=== PATIENT | female | born 1950 | race Caucasian/White ===

== ENCOUNTER 2022-08-06 13:47 | Inpatient (IN) | payer MEDICARE ==
[~2022-08-06] VITALS: Ht 157.5 cm; Wt 39.8 kg
[2022-08-06] MEDS: predniSONE 20 MG TAB PO SCH (09:00)
[2022-08-06] MEDS: COMBIVENT RESPIMAT 100-20MCG INHALER 4GM INH SCH ×3 (13:45→14:28)
[2022-08-06] MEDS ORDERED: methylPREDNISolone 125MG 2ML VIAL IV ONE (14:00)
[2022-08-06] MEDS ORDERED: LevoFLOXacin 750 MG TABLET PO ONE (14:15)
[2022-08-06 15:29] LABS: HEMATOCRIT 30.5 % (36.0-47.0); MEAN CORPUSCULAR HEMOGLOBIN 28.8 pg (27.0-33.0); MEAN CORPUSCULAR HGB CONC 32.8 g/dl (32.0-36.5); MEAN CORPUSCULAR VOLUME 87.9 fl (80.0-96.0); PLATELET COUNT, AUTOMATED 383 10^3/uL (150-450); RED BLOOD COUNT 3.47 10^6/uL (4.00-5.40); WHITE BLOOD COUNT 22.3 10^3/uL (4.0-10.0)
[2022-08-06 16:00] LABS: ALBUMIN 2.1 G/DL (3.2-5.2); ALKALINE PHOSPHATASE 94 U/L (46-116); ALT/SGPT 10 U/L (7.0-40); AST/SGOT 31 U/L (<34); BILIRUBIN,DIRECT 0.2 MG/DL (<0.4); BILIRUBIN,TOTAL 0.4 MG/DL (0.3-1.2); BLOOD UREA NITROGEN 12 MG/DL (9-23); CALCIUM LEVEL 7.2 MG/DL (8.3-10.6); CARBON DIOXIDE LEVEL 17 MMOL/L (20-31); CHLORIDE LEVEL 94 MMOL/L (98-107); CK-MB VALUE MASS < 1.0 NG/ML (<3.6); CREATININE FOR GFR 0.55 MG/DL (0.55-1.30); GLOMERULAR FILTRATION RATE > 60.0 (>39); GLUCOSE, FASTING 76 MG/DL (74-106); POTASSIUM SERUM 3.7 MMOL/L (3.5-5.1); SODIUM LEVEL 128 MMOL/L (136-145); TOTAL PROTEIN 5.8 G/DL (5.7-8.2)
[2022-08-06 16:01] LABS: LYMPHOCYTES 3 % (16-44); METAMYELOCYTES 2 % (0-0); MONOCYTES 3 % (0-5); MYELOCYTES 1 % (0-0); NEUTROPHILS 86 % (28-66); PLATELET ESTIMATE NORMAL (NORMAL); THYROXINE (T4) 7.5 UG/DL (4.5-10.9); TOXIC VACUOLATION 1+
[2022-08-06 16:02] LABS: THYROID STIMULATING HORMONE 0.997 uIU/ML (0.55-4.78)
[2022-08-06 16:05] LABS: CPK CREATINE PHOSPHOKINASE 34 U/L (34-145); MB/CK RELATIVE INDEX 2.94 (< OR =4)
[2022-08-06] MEDS ORDERED: **hydrALAZINE HCL** 25 MG TAB PO PRN (17:15)
[2022-08-06] MEDS: NS 1,000 ML IV SCH (17:20)
[2022-08-06 17:40] LABS: CK-MB VALUE MASS < 1.0 NG/ML (<3.6)
[2022-08-06 17:51] LABS: CPK CREATINE PHOSPHOKINASE 28 U/L (34-145); MB/CK RELATIVE INDEX 3.57 (< OR =4)
[2022-08-06] MEDS ORDERED: DULE100A INH (18:39)
[2022-08-06] MEDS ORDERED: SPIR1AER INH (18:39)
[2022-08-06] MEDS ORDERED: SPIR12.9 INH (18:39)
[2022-08-06] MEDS ORDERED: SOTA80TA53 PO (18:51)
[2022-08-06] MEDS ORDERED: ALB2.5NEB INH (18:51)
[2022-08-06] MEDS ORDERED: ASPI81TA26 PO (18:51)
[2022-08-06] MEDS ORDERED: OMEP-173 PO (18:51)
[2022-08-06] MEDS ORDERED: ALBU8.5H INH (18:51)
[2022-08-06] MEDS ORDERED: CLON0.2T PO (18:51)
[2022-08-06] MEDS ORDERED: GABA600T4 PO (18:51)
[2022-08-06] MEDS ORDERED: SOTA120T PO (18:51)
[2022-08-06] MEDS ORDERED: CLOP75TA2 PO (19:33)
[2022-08-06] MEDS ORDERED: TOPI50TA9 PO (19:33)
[2022-08-06] MEDS ORDERED: DRIS50003 PO (19:33)
[2022-08-06] MEDS ORDERED: ATOR40TA75 PO (19:33)
[2022-08-06] MEDS ORDERED: HOME MED LIST COMPLETE! XX SCH (19:40)
[2022-08-06] MEDS: SODIUM CHLORIDE HYPERTONIC 3% 15ML NEB SOL INH SCH (20:00)
[2022-08-06] MEDS: IPRATROPIUM 0.5MG/ALBUTEROL 2.5MG INH SOL UD 3ML (DUONEB) NEB SCH (20:20)
[2022-08-06 20:22] LABS: IRON (FE) 6 UG/DL (50-170); PERCENT SATURATION 2.7 % (13.2-45.0); TOTAL IRON BINDING CAPACITY 223 UG/DL (250-425)
[2022-08-06 20:24] LABS: FERRITIN 100.2 NG/ML (7.3-270.7); TOTAL 25(OH) VITAMIN D 136.9 NG/ML (20.0-100.0)
[2022-08-06 20:25] LABS: FOLATE > 24.0 NG/ML (>5.4); VITAMIN B12 LEVEL 433 PG/ML (211-911)
[2022-08-06] MEDS ORDERED: DOXYCYCLINE HYCLATE 100 MG in D5W MINI-BAG PLUS 100 ML IV SCH (21:00)
[2022-08-06] MEDS: AMPICILLIN SOD/SULBACTAM SOD 3 GM in D5W MINI-BAG PLUS 100 ML IV SCH (21:28)
[2022-08-07] MEDS: GABAPENTIN 300 MG CAP PO PRN ×2 (00:46→19:34)
[2022-08-07] MEDS: DOXYCYCLINE HYCLATE 100MG TABLET PO SCH ×3 (00:46→19:33)
[2022-08-07] MEDS: SODIUM CHLORIDE HYPERTONIC 3% 15ML NEB SOL INH SCH ×4 (01:41→20:00)
[2022-08-07] MEDS: IPRATROPIUM 0.5MG/ALBUTEROL 2.5MG INH SOL UD 3ML (DUONEB) NEB SCH ×4 (01:41→20:36)
[2022-08-07] MEDS: AMPICILLIN SOD/SULBACTAM SOD 3 GM in D5W MINI-BAG PLUS 100 ML IV SCH ×4 (02:12→19:38)
[2022-08-07] MEDS: NS 1,000 ML IV SCH ×2 (06:21→09:02)
[2022-08-07 06:54] LABS: HEMATOCRIT 29.1 % (36.0-47.0); HEMOGLOBIN 9.8 g/dl (12.0-15.5); MEAN CORPUSCULAR HEMOGLOBIN 29.8 pg (27.0-33.0); MEAN CORPUSCULAR HGB CONC 33.7 g/dl (32.0-36.5); MEAN CORPUSCULAR VOLUME 88.4 fl (80.0-96.0); PLATELET COUNT, AUTOMATED 366 10^3/uL (150-450); RED BLOOD COUNT 3.29 10^6/uL (4.00-5.40); WHITE BLOOD COUNT 15.7 10^3/uL (4.0-10.0)
[2022-08-07 07:21] LABS: BLOOD UREA NITROGEN 16 MG/DL (9-23); CALCIUM LEVEL 6.7 MG/DL (8.3-10.6); CARBON DIOXIDE LEVEL 21 MMOL/L (20-31); CHLORIDE LEVEL 97 MMOL/L (98-107); GLOMERULAR FILTRATION RATE > 60.0 (>39); GLUCOSE, FASTING 107 MG/DL (74-106); POTASSIUM SERUM 3.5 MMOL/L (3.5-5.1); SODIUM LEVEL 131 MMOL/L (136-145)
[2022-08-07 08:21] LABS: CHOLESTEROL LEVEL 72 MG/DL (<200); CHOLESTEROL RISK RATIO 3.97 (<5); HDL CHOLESTEROL 18.1 MG/DL (>40); LDL CHOLESTEROL 37.7 MG/DL (<100); NON-HDL-C 54 MG/DL; TRIGLYCERIDES LEVEL 81 MG/DL (<150)
[2022-08-07] MEDS: OMEPRAZOLE 20MG CAP PO SCH (09:01)
[2022-08-07] MEDS: ASPIRIN 81MG ENTERIC TABLET PO SCH (09:01)
[2022-08-07] MEDS: predniSONE 20 MG TAB PO SCH (09:02)
[2022-08-07] MEDS: ENOXAPARIN 30MG/0.3ML SYRINGE (J1650 PER 10MG) SC SCH (09:02)
[2022-08-07 09:17] LABS: HEMOGLOBIN A1c 5.2 % (4.0-6.0)
[2022-08-07] MEDS ORDERED: E-Z-PAQUE 96% w/w SUSP 176GM BTL As Ordered ONE (13:15)
[2022-08-07] MEDS ORDERED: BARIUM SULFATE 700 MG TABLET (E-Z-DISK) As Ordered ONE (13:15)
[2022-08-07] MEDS ORDERED: VARIBAR NECTAR 40% w/v 240ML SUSP BTL As Ordered ONE (13:15)
[2022-08-07] MEDS ORDERED: VARIBAR PUDDING 40% w/v 230ML TUBE As Ordered ONE (13:15)
[2022-08-07] MEDS: ATORVASTATIN 20 MG TAB PO SCH (19:34)
[2022-08-07] MEDS: TOPIRAMATE (TopAMAX) 25 MG TAB PO SCH (19:34)
[2022-08-07] MEDS: CLOPIDOGREL 75 MG TAB PO SCH (19:34)
[2022-08-07] MEDS ORDERED: ATORVASTATIN 20 MG TAB PO SCH (21:00)
[2022-08-08 00:47] VITALS: BP 152/67
[2022-08-08] MEDS: AMPICILLIN SOD/SULBACTAM SOD 3 GM in D5W MINI-BAG PLUS 100 ML IV SCH ×4 (01:43→19:55)
[2022-08-08] MEDS: RAMELTEON 8 MG TAB (ROZEREM) PO PRN ×2 (01:49→19:56)
[2022-08-08] MEDS: SODIUM CHLORIDE HYPERTONIC 3% 15ML NEB SOL INH SCH ×4 (02:00→19:32)
[2022-08-08 02:27] LABS: OSMOLALITY URINE 601 MOSM/KG (50-1400)
[2022-08-08 02:29] LABS: SODIUM,RANDOM URINE 18 MMOL/L
[2022-08-08] MEDS: IPRATROPIUM 0.5MG/ALBUTEROL 2.5MG INH SOL UD 3ML (DUONEB) NEB SCH ×4 (02:46→19:32)
[2022-08-08] MEDS: NS 1,000 ML IV SCH (04:57)
[2022-08-08 05:06] VITALS: BP 127/48
[2022-08-08 05:47] LABS: HEMATOCRIT 26.4 % (36.0-47.0); HEMOGLOBIN 8.9 g/dl (12.0-15.5); MEAN CORPUSCULAR HEMOGLOBIN 29.7 pg (27.0-33.0); MEAN CORPUSCULAR HGB CONC 33.7 g/dl (32.0-36.5); PLATELET COUNT, AUTOMATED 352 10^3/uL (150-450); WHITE BLOOD COUNT 13.9 10^3/uL (4.0-10.0)
[2022-08-08 06:21] LABS: BLOOD UREA NITROGEN 16 MG/DL (9-23); CALCIUM LEVEL 6.9 MG/DL (8.3-10.6); CARBON DIOXIDE LEVEL 22 MMOL/L (20-31); CHLORIDE LEVEL 99 MMOL/L (98-107); CREATININE FOR GFR 0.54 MG/DL (0.55-1.30); GLOMERULAR FILTRATION RATE > 60.0 (>39); GLUCOSE, FASTING 114 MG/DL (74-106); POTASSIUM SERUM 3.3 MMOL/L (3.5-5.1); SODIUM LEVEL 132 MMOL/L (136-145)
[2022-08-08 06:24] LABS: LYMPHOCYTES 12 % (16-44); METAMYELOCYTES 1 % (0-0); MONOCYTES 10 % (0-5); NEUTROPHILS 73 % (28-66); PLATELET ESTIMATE NORMAL (NORMAL)
[2022-08-08] MEDS: ASPIRIN 81MG ENTERIC TABLET PO SCH (09:21)
[2022-08-08] MEDS: OMEPRAZOLE 20MG CAP PO SCH (09:21)
[2022-08-08] MEDS: DOXYCYCLINE HYCLATE 100MG TABLET PO SCH ×2 (09:21→20:00)
[2022-08-08] MEDS: predniSONE 20 MG TAB PO SCH (09:21)
[2022-08-08] MEDS: ENOXAPARIN 30MG/0.3ML SYRINGE (J1650 PER 10MG) SC SCH (09:21)
[2022-08-08 14:00] VITALS: BP 160/58
[2022-08-08] MEDS: MECLIZINE 12.5 MG TAB PO PRN (14:38)
[2022-08-08] MEDS ORDERED: POTASSIUM CHLORIDE 10MEQ SR TABLET PO ONE (15:30)
[2022-08-08] MEDS ORDERED: PILL CUTTER 1 EACH XX PRN (15:55)
[2022-08-08 19:53] VITALS: BP 159/59
[2022-08-08] MEDS: GABAPENTIN 300 MG CAP PO PRN (19:56)
[2022-08-08] MEDS: SOTALOL HCL 80 MG TAB PO SCH (20:00)
[2022-08-08] MEDS: CLOPIDOGREL 75 MG TAB PO SCH (20:00)
[2022-08-08] MEDS: ATORVASTATIN 20 MG TAB PO SCH (20:00)
[2022-08-08] MEDS: TOPIRAMATE (TopAMAX) 25 MG TAB PO SCH (20:01)
[2022-08-08] MEDS: guaiFENesin SYRUP 200MG 10ML UDC PO PRN (20:55)
[2022-08-09] MEDS: NS 1,000 ML IV SCH ×2 (02:06→12:05)
[2022-08-09] MEDS: AMPICILLIN SOD/SULBACTAM SOD 3 GM in D5W MINI-BAG PLUS 100 ML IV SCH ×2 (02:06→08:12)
[2022-08-09] MEDS: IPRATROPIUM 0.5MG/ALBUTEROL 2.5MG INH SOL UD 3ML (DUONEB) NEB SCH ×4 (02:43→19:19)
[2022-08-09] MEDS: SODIUM CHLORIDE HYPERTONIC 3% 15ML NEB SOL INH SCH ×4 (02:43→19:19)
[2022-08-09 05:20] VITALS: BP 145/54
[2022-08-09 05:27] LABS: HEMATOCRIT 27.3 % (36.0-47.0); MEAN CORPUSCULAR HEMOGLOBIN 29.5 pg (27.0-33.0); MEAN CORPUSCULAR VOLUME 89.5 fl (80.0-96.0); PLATELET COUNT, AUTOMATED 363 10^3/uL (150-450); RED BLOOD COUNT 3.05 10^6/uL (4.00-5.40); WHITE BLOOD COUNT 11.7 10^3/uL (4.0-10.0)
[2022-08-09 05:56] LABS: BLOOD UREA NITROGEN 18 MG/DL (9-23); CALCIUM LEVEL 6.8 MG/DL (8.3-10.6); CARBON DIOXIDE LEVEL 21 MMOL/L (20-31); CHLORIDE LEVEL 103 MMOL/L (98-107); CREATININE FOR GFR 0.64 MG/DL (0.55-1.30); GLOMERULAR FILTRATION RATE > 60.0 (>39); GLUCOSE, FASTING 100 MG/DL (74-106); POTASSIUM SERUM 3.9 MMOL/L (3.5-5.1); SODIUM LEVEL 134 MMOL/L (136-145)
[2022-08-09 05:57] LABS: ANISOCYTOSIS 1+; ATYPICAL LYMPH 1 % (0-5); LYMPHOCYTES 10 % (16-44); METAMYELOCYTES 3 % (0-0); MONOCYTES 5 % (0-5); MYELOCYTES 2 % (0-0); NEUTROPHILS 76 % (28-66); PLATELET ESTIMATE NORMAL (NORMAL)
[2022-08-09 05:58] LABS: OVALOCYTES 1+
[2022-08-09] MEDS: ENOXAPARIN 30MG/0.3ML SYRINGE (J1650 PER 10MG) SC SCH (08:12)
[2022-08-09] MEDS: SOTALOL HCL 80 MG TAB PO SCH (08:13)
[2022-08-09] MEDS: ASPIRIN 81MG ENTERIC TABLET PO SCH (08:13)
[2022-08-09] MEDS: DOXYCYCLINE HYCLATE 100MG TABLET PO SCH (08:13)
[2022-08-09] MEDS: OMEPRAZOLE 20MG CAP PO SCH (08:14)
[2022-08-09] MEDS: predniSONE 20 MG TAB PO SCH (08:14)
[2022-08-09] MEDS: MECLIZINE 12.5 MG TAB PO PRN (08:29)
[2022-08-09 14:00] VITALS: BP 148/52
[2022-08-09] MEDS: LevoFLOXacin 750 MG TABLET PO SCH (17:30)
[2022-08-09 20:00] VITALS: BP 144/54
[2022-08-09] MEDS: CLOPIDOGREL 75 MG TAB PO SCH (21:45)
[2022-08-09] MEDS: GABAPENTIN 300 MG CAP PO PRN (21:45)
[2022-08-09] MEDS: RAMELTEON 8 MG TAB (ROZEREM) PO PRN (21:45)
[2022-08-09] MEDS: ATORVASTATIN 20 MG TAB PO SCH (21:46)
[2022-08-09] MEDS: TOPIRAMATE (TopAMAX) 25 MG TAB PO SCH (21:46)
[2022-08-09] MEDS: METOPROLOL TART 25 MG TABLET PO SCH (21:47)
[2022-08-09] MEDS: guaiFENesin SYRUP 200MG 10ML UDC PO PRN (21:48)
[2022-08-10] MEDS: SODIUM CHLORIDE HYPERTONIC 3% 15ML NEB SOL INH SCH ×4 (02:51→20:35)
[2022-08-10] MEDS: IPRATROPIUM 0.5MG/ALBUTEROL 2.5MG INH SOL UD 3ML (DUONEB) NEB SCH ×4 (02:51→20:35)
[2022-08-10 06:00] VITALS: BP 149/51
[2022-08-10 06:33] LABS: HEMATOCRIT 30.5 % (36.0-47.0); HEMOGLOBIN 9.7 g/dl (12.0-15.5); MEAN CORPUSCULAR HEMOGLOBIN 28.7 pg (27.0-33.0); MEAN CORPUSCULAR HGB CONC 31.8 g/dl (32.0-36.5); MEAN CORPUSCULAR VOLUME 90.2 fl (80.0-96.0); PLATELET COUNT, AUTOMATED 408 10^3/uL (150-450); RED BLOOD COUNT 3.38 10^6/uL (4.00-5.40); WHITE BLOOD COUNT 13.7 10^3/uL (4.0-10.0)
[2022-08-10 06:52] LABS: BLOOD UREA NITROGEN 20 MG/DL (9-23); CALCIUM LEVEL 6.8 MG/DL (8.3-10.6); CARBON DIOXIDE LEVEL 22 MMOL/L (20-31); CHLORIDE LEVEL 104 MMOL/L (98-107); CREATININE FOR GFR 0.62 MG/DL (0.55-1.30); GLOMERULAR FILTRATION RATE > 60.0 (>39); GLUCOSE, FASTING 83 MG/DL (74-106); POTASSIUM SERUM 3.8 MMOL/L (3.5-5.1); SODIUM LEVEL 135 MMOL/L (136-145)
[2022-08-10 08:00] LABS: ATYPICAL LYMPH 1 % (0-5); LYMPHOCYTES 13 % (16-44); MONOCYTES 9 % (0-5); MYELOCYTES 3 % (0-0); NEUTROPHILS 69 % (28-66)
[2022-08-10 08:02] LABS: PLATELET CLUMPS SMALL AMT; PLATELET ESTIMATE NORMAL (NORMAL); SMUDGE CELLS 1+
[2022-08-10 08:03] LABS: POIKILOCYTOSIS 1+
[2022-08-10 08:05] LABS: ANISOCYTOSIS 1+
[2022-08-10] MEDS: OMEPRAZOLE 20MG CAP PO SCH (09:01)
[2022-08-10] MEDS: MECLIZINE 12.5 MG TAB PO PRN (09:01)
[2022-08-10] MEDS: ASPIRIN 81MG ENTERIC TABLET PO SCH (09:01)
[2022-08-10] MEDS: predniSONE 20 MG TAB PO SCH (09:02)
[2022-08-10] MEDS: ENOXAPARIN 30MG/0.3ML SYRINGE (J1650 PER 10MG) SC SCH (09:02)
[2022-08-10] MEDS: METOPROLOL TART 25 MG TABLET PO SCH ×2 (09:03→20:40)
[2022-08-10 14:00] VITALS: BP 157/64
[2022-08-10] MEDS: LevoFLOXacin 750 MG TABLET PO SCH (17:04)
[2022-08-10 20:00] VITALS: BP 165/62
[2022-08-10] MEDS: CLOPIDOGREL 75 MG TAB PO SCH (20:35)
[2022-08-10] MEDS: ATORVASTATIN 20 MG TAB PO SCH (20:35)
[2022-08-10] MEDS: RAMELTEON 8 MG TAB (ROZEREM) PO PRN (20:35)
[2022-08-10] MEDS: GABAPENTIN 300 MG CAP PO PRN (20:35)
[2022-08-10] MEDS: TOPIRAMATE (TopAMAX) 25 MG TAB PO SCH (20:36)
[2022-08-10] MEDS: SODIUM CHLORIDE NASAL 0.65% SPRAY BTL (OCEAN) PRN (20:39)
[2022-08-10] MEDS ORDERED: MAALOX 30 ML SUSP *UDC PO PRN (20:45)
[2022-08-10] MEDS: guaiFENesin SYRUP 200MG 10ML UDC PO PRN (21:16)
[2022-08-11] MEDS ORDERED: ONDANSETRON 4MG 2ML VIAL IV PRN (01:45)
[2022-08-11] MEDS: IPRATROPIUM 0.5MG/ALBUTEROL 2.5MG INH SOL UD 3ML (DUONEB) NEB SCH ×4 (02:42→19:19)
[2022-08-11] MEDS: SODIUM CHLORIDE HYPERTONIC 3% 15ML NEB SOL INH SCH ×4 (02:42→19:19)
[2022-08-11] MEDS ORDERED: ONDANSETRON 4MG ORAL DISINTEGRATING TAB PO ONE (04:00)
[2022-08-11 05:00] VITALS: BP 172/64
[2022-08-11 06:07] VITALS: BP 150/54
[2022-08-11 06:29] LABS: HEMATOCRIT 29.9 % (36.0-47.0); HEMOGLOBIN 9.8 g/dl (12.0-15.5); MEAN CORPUSCULAR HEMOGLOBIN 29.6 pg (27.0-33.0); MEAN CORPUSCULAR HGB CONC 32.8 g/dl (32.0-36.5); MEAN CORPUSCULAR VOLUME 90.3 fl (80.0-96.0); PLATELET COUNT, AUTOMATED 417 10^3/uL (150-450); RED BLOOD COUNT 3.31 10^6/uL (4.00-5.40); WHITE BLOOD COUNT 13.7 10^3/uL (4.0-10.0)
[2022-08-11 06:47] LABS: BLOOD UREA NITROGEN 15 MG/DL (9-23); CALCIUM LEVEL 6.7 MG/DL (8.3-10.6); CARBON DIOXIDE LEVEL 20 MMOL/L (20-31); CHLORIDE LEVEL 102 MMOL/L (98-107); CREATININE FOR GFR 0.56 MG/DL (0.55-1.30); GLOMERULAR FILTRATION RATE > 60.0 (>39); GLUCOSE, FASTING 85 MG/DL (74-106); POTASSIUM SERUM 3.1 MMOL/L (3.5-5.1); SODIUM LEVEL 137 MMOL/L (136-145)
[2022-08-11 07:19] LABS: LYMPHOCYTES 19 % (16-44); METAMYELOCYTES 2 % (0-0); MONOCYTES 8 % (0-5); MYELOCYTES 4 % (0-0); NEUTROPHILS 66 % (28-66)
[2022-08-11 07:21] LABS: ANISOCYTOSIS 1+; PLATELET ESTIMATE INCREASED (NORMAL); POIKILOCYTOSIS 1+
[2022-08-11 07:22] LABS: OVALOCYTES 1+
[2022-08-11] MEDS ORDERED: POTASSIUM CHLORIDE 10% LIQ 20MEQ/15ML UDC PO ONE (08:00)
[2022-08-11] MEDS: ENOXAPARIN 30MG/0.3ML SYRINGE (J1650 PER 10MG) SC SCH (10:35)
[2022-08-11] MEDS: METOPROLOL TART 25 MG TABLET PO SCH ×2 (10:36→21:08)
[2022-08-11] MEDS: ASPIRIN 81MG ENTERIC TABLET PO SCH (10:36)
[2022-08-11] MEDS: PANTOPRAZOLE 40MG TAB (PROTONIX) PO SCH ×2 (10:36→21:05)
[2022-08-11] MEDS: predniSONE 20 MG TAB PO SCH (10:36)
[2022-08-11] MEDS ORDERED: GI COCKTAIL 50ML BTL(HYOSCYAMINE/MAALOX/LIDOCAINE VISCOUS)(1:3:1) PO ONE (11:00)
[2022-08-11 14:00] VITALS: BP 151/55
[2022-08-11] MEDS ORDERED: POTASSIUM CHLORIDE 10MEQ SR TABLET PO ONE (16:00)
[2022-08-11] MEDS: LevoFLOXacin 750 MG TABLET PO SCH (16:59)
[2022-08-11 20:00] VITALS: BP 133/43
[2022-08-11] MEDS ORDERED: MAG SULF 1GM/100ML (MAG RUN) 1 GM in IV 1 EA IV SCH (21:00)
[2022-08-11] MEDS: TOPIRAMATE (TopAMAX) 25 MG TAB PO SCH (21:05)
[2022-08-11] MEDS: ATORVASTATIN 20 MG TAB PO SCH (21:05)
[2022-08-11] MEDS: RAMELTEON 8 MG TAB (ROZEREM) PO PRN (21:05)
[2022-08-11] MEDS: CLOPIDOGREL 75 MG TAB PO SCH (21:05)
[2022-08-11] MEDS: GABAPENTIN 300 MG CAP PO PRN (21:05)
[2022-08-11] MEDS: SODIUM CHLORIDE NASAL 0.65% SPRAY BTL (OCEAN) PRN (21:06)
[2022-08-12] MEDS: SODIUM CHLORIDE HYPERTONIC 3% 15ML NEB SOL INH SCH ×4 (01:20→19:25)
[2022-08-12] MEDS: IPRATROPIUM 0.5MG/ALBUTEROL 2.5MG INH SOL UD 3ML (DUONEB) NEB SCH ×4 (01:20→19:25)
[2022-08-12] MEDS: MAG SULF 1GM/100ML (MAG RUN) 1 GM in IV 1 EA IV SCH ×2 (02:12→02:58)
[2022-08-12 06:00] VITALS: BP 149/51
[2022-08-12 06:38] LABS: HEMATOCRIT 27.4 % (36.0-47.0); HEMOGLOBIN 8.8 g/dl (12.0-15.5); MEAN CORPUSCULAR HEMOGLOBIN 28.9 pg (27.0-33.0); MEAN CORPUSCULAR HGB CONC 32.1 g/dl (32.0-36.5); MEAN CORPUSCULAR VOLUME 90.1 fl (80.0-96.0); PLATELET COUNT, AUTOMATED 392 10^3/uL (150-450); RED BLOOD COUNT 3.04 10^6/uL (4.00-5.40); WHITE BLOOD COUNT 11.6 10^3/uL (4.0-10.0)
[2022-08-12 06:57] LABS: MAGNESIUM LEVEL 1.9 MG/DL (1.8-2.4)
[2022-08-12 06:59] LABS: BLOOD UREA NITROGEN 13 MG/DL (9-23); CALCIUM LEVEL 6.9 MG/DL (8.3-10.6); CARBON DIOXIDE LEVEL 20 MMOL/L (20-31); CHLORIDE LEVEL 102 MMOL/L (98-107); CREATININE FOR GFR 0.63 MG/DL (0.55-1.30); GLOMERULAR FILTRATION RATE > 60.0 (>39); GLUCOSE, FASTING 84 MG/DL (74-106); SODIUM LEVEL 135 MMOL/L (136-145)
[2022-08-12 07:41] LABS: ATYPICAL LYMPH 1 % (0-5); LYMPHOCYTES 17 % (16-44); METAMYELOCYTES 3 % (0-0); MONOCYTES 5 % (0-5); NEUTROPHILS 72 % (28-66)
[2022-08-12 07:42] LABS: HYPOCHROMASIA 1+
[2022-08-12 07:43] LABS: ANISOCYTOSIS 1+
[2022-08-12 07:44] LABS: PLATELET ESTIMATE NORMAL (NORMAL)
[2022-08-12] MEDS: ENOXAPARIN 30MG/0.3ML SYRINGE (J1650 PER 10MG) SC SCH (08:52)
[2022-08-12] MEDS: ASPIRIN 81MG ENTERIC TABLET PO SCH (08:52)
[2022-08-12] MEDS: METOPROLOL TART 25 MG TABLET PO SCH ×2 (08:52→19:55)
[2022-08-12] MEDS: MECLIZINE 12.5 MG TAB PO PRN ×2 (08:52→18:56)
[2022-08-12] MEDS: PANTOPRAZOLE 40MG TAB (PROTONIX) PO SCH ×2 (08:53→19:54)
[2022-08-12] MEDS ORDERED: VITAMIN D 50,000 UNITS CAPSULE (ERGOCALCIFEROL 1.25MG) PO SCH (09:00)
[2022-08-12] MEDS ORDERED: PANT40TA29 PO (10:32)
[2022-08-12] MEDS ORDERED: CLOP75TA99 PO (10:32)
[2022-08-12] MEDS ORDERED: LEVO1TAB40 PO (10:32)
[2022-08-12] MEDS ORDERED: PRED20TA PO (10:41)
[2022-08-12] MEDS ORDERED: ALBU8.5H INH (10:41)
[2022-08-12] MEDS ORDERED: FLUBLOK(EGG FREE)(QUAD)INFLUENZA VACC 0.5ML SYRINGE 18YRS & OLDER IM.IMMUN ONE (11:00)
[2022-08-12 14:00] VITALS: BP 148/51
[2022-08-12] MEDS: LevoFLOXacin 750 MG TABLET PO SCH (17:58)
[2022-08-12] MEDS: CLOPIDOGREL 75 MG TAB PO SCH (19:52)
[2022-08-12] MEDS: RAMELTEON 8 MG TAB (ROZEREM) PO PRN (19:54)
[2022-08-12] MEDS: ATORVASTATIN 20 MG TAB PO SCH (19:55)
[2022-08-12] MEDS: TOPIRAMATE (TopAMAX) 25 MG TAB PO SCH (19:55)
[2022-08-12] MEDS: GABAPENTIN 300 MG CAP PO PRN (19:55)
[2022-08-12] MEDS: SODIUM CHLORIDE NASAL 0.65% SPRAY BTL (OCEAN) PRN (20:03)
[2022-08-12 21:00] VITALS: BP 141/50
[2022-08-13] MEDS: IPRATROPIUM 0.5MG/ALBUTEROL 2.5MG INH SOL UD 3ML (DUONEB) NEB SCH ×3 (01:25→13:05)
[2022-08-13] MEDS: SODIUM CHLORIDE HYPERTONIC 3% 15ML NEB SOL INH SCH ×3 (01:26→13:05)
[2022-08-13 05:45] VITALS: BP 141/49
[2022-08-13 06:14] LABS: HEMOGLOBIN 8.8 g/dl (12.0-15.5); MEAN CORPUSCULAR HGB CONC 32.6 g/dl (32.0-36.5); MEAN CORPUSCULAR VOLUME 89.1 fl (80.0-96.0); PLATELET COUNT, AUTOMATED 387 10^3/uL (150-450); RED BLOOD COUNT 3.03 10^6/uL (4.00-5.40); WHITE BLOOD COUNT 12.8 10^3/uL (4.0-10.0)
[2022-08-13 06:53] LABS: EOSINOPHILS 1 % (0-3); LYMPHOCYTES 12 % (16-44); METAMYELOCYTES 1 % (0-0); MONOCYTES 11 % (0-5); NEUTROPHILS 73 % (28-66); PLATELET ESTIMATE INCREASED (NORMAL)
[2022-08-13 06:54] LABS: BURR CELLS 1+; HYPOCHROMASIA 1+; OVALOCYTES 1+
[2022-08-13] MEDS: ASPIRIN 81MG ENTERIC TABLET PO SCH (07:56)
[2022-08-13 07:57] VITALS: BP 165/58
[2022-08-13] MEDS: MECLIZINE 12.5 MG TAB PO PRN (07:57)
[2022-08-13] MEDS: PANTOPRAZOLE 40MG TAB (PROTONIX) PO SCH (07:57)
[2022-08-13] MEDS: METOPROLOL TART 25 MG TABLET PO SCH (07:57)
[2022-08-13] MEDS: ENOXAPARIN 30MG/0.3ML SYRINGE (J1650 PER 10MG) SC SCH (07:57)
[2022-08-13] MEDS ORDERED: MECL-86 PO (11:45)
[2022-08-13 11:55] VITALS: BP 170/68
[2022-08-13] MEDS ORDERED: cloNIDine 0.1MG TABLET PO ONE (12:00)
[2022-08-13 12:38] VITALS: BP 113/72
[2022-08-14 20:07] LABS: BODY FLUID CULTURE Not indicated. (.); LEGIONELLA ANTIGEN URINE Negative (Negative); ORGANISM ID Not indicated. (.); SPECIMEN SOURCE Urine (.); URINE STREP PNEUMONIAE ANTIGEN Negative (Negative)
== END 2022-08-13 14:23 | disposition home health service (06) | DRG 64 ==
LOC: M ED 13:47 → M ED INP 17:09 → ENRESERV 08-07 12:59 → M MSPAV 08-08 00:46
PROVIDERS: ADMIT Internal Medicine; ATTEND Internal Medicine
PROC: B246ZZZ Ultrasonography of Right and Left Heart (ICD-10-PCS; principal; 2022-08-07)
DX: I63.9 Cerebral infarction, unspecified (principal); J18.9 Pneumonia, unspecified organism; E87.1 Hypo-osmolality and hyponatremia; E87.20 Acidosis, unspecified; J44.1 Chronic obstructive pulmonary disease with (acute) exacerbation; J44.0 Chronic obstructive pulmonary disease with (acute) lower respiratory infection; I25.10 Atherosclerotic heart disease of native coronary artery without angina pectoris; I10 Essential (primary) hypertension; E55.9 Vitamin D deficiency, unspecified; F17.210 Nicotine dependence, cigarettes, uncomplicated; Z90.79 Acquired absence of other genital organ(s); R42 Dizziness and giddiness; Z79.82 Long term (current) use of aspirin; Z79.02 Long term (current) use of antithrombotics/antiplatelets; Z79.899 Other long term (current) drug therapy; Z20.822 Contact with and (suspected) exposure to COVID-19; Z88.8 Allergy status to other drugs, medicaments and biological substances; B97.29 Other coronavirus as the cause of diseases classified elsewhere; G43.909 Migraine, unspecified, not intractable, without status migrainosus; K21.9 Gastro-esophageal reflux disease without esophagitis

== ENCOUNTER 2022-12-20 18:42 | Inpatient (IN) | payer MEDICARE ==
[~2022-12-20] VITALS: Ht 157.5 cm; Wt 46.0 kg
[~2022-12-20 18:42] MED LIST: ALB2.5NEB INH; ALBU8.5H INH; ASPI81TA26 PO; ATOR40TA75 PO; CLON0.2T PO; CLOP75TA2 PO; CLOP75TA99 PO; DRIS50003 PO; GABA600T4 PO; LEVO1TAB40 PO; MECL-86 PO; MOME13HF8 INH; OMEP-173 PO; PANT40TA29 PO; PRED20TA PO; SOTA120T PO; SOTA80TA53 PO; SPIR12.9 INH; SPIR1AER INH; TOPI-254 PO
[2022-12-20] MEDS: SOTALOL 40MG PER 1/2 TABLET PO SCH (21:00)
[2022-12-20 21:33] LABS: BASO % 0.5 % (0.0-1.0); EOS # 0.1 10^3/uL (0.0-0.5); HEMATOCRIT 24.2 % (36.0-47.0); HEMOGLOBIN 7.4 g/dl (12.0-15.5); LYMPH # 1.6 10^3/uL (1.5-5.0); LYMPH % 26.9 % (24.0-44.0); MEAN CORPUSCULAR HEMOGLOBIN 24.8 pg (27.0-33.0); MEAN CORPUSCULAR HGB CONC 30.6 g/dl (32.0-36.5); MEAN CORPUSCULAR VOLUME 81.2 fl (80.0-96.0); MONO # 0.7 10^3/uL (0.0-0.8); MONO % 12.4 % (2.0-8.0); NEUTROPHILS # 3.5 10^3/uL (1.5-8.5); NEUTROPHILS % 58.4 % (36.0-66.0); PLATELET COUNT, AUTOMATED 239 10^3/uL (150-450); RED BLOOD COUNT 2.98 10^6/uL (4.00-5.40)
[2022-12-20 21:57] LABS: CK-MB VALUE MASS 1.4 NG/ML (<3.6)
[2022-12-20 22:00] LABS: ALBUMIN 3.1 G/DL (3.2-5.2); ALKALINE PHOSPHATASE 95 U/L (46-116); ALT/SGPT 12 U/L (7.0-40); AST/SGOT 22 U/L (<34); BILIRUBIN,TOTAL 0.3 MG/DL (0.3-1.2); BLOOD UREA NITROGEN 11 MG/DL (9-23); CALCIUM LEVEL 7.8 MG/DL (8.3-10.6); CARBON DIOXIDE LEVEL 20 MMOL/L (20-31); CHLORIDE LEVEL 94 MMOL/L (98-107); CPK CREATINE PHOSPHOKINASE 64 U/L (34-145); CREATININE FOR GFR 0.65 MG/DL (0.55-1.30); GLOMERULAR FILTRATION RATE > 60.0 (>39); GLUCOSE, FASTING 90 MG/DL (74-106); MAGNESIUM LEVEL 1.6 MG/DL (1.8-2.4); MB/CK RELATIVE INDEX 2.18 (< OR =4); POTASSIUM SERUM 3.6 MMOL/L (3.5-5.1); SODIUM LEVEL 126 MMOL/L (136-145); TOTAL PROTEIN 6.1 G/DL (5.7-8.2)
[2022-12-20] MEDS ORDERED: LevoFLOXacin IV 750 MG in IV 1 EA IV ONE (22:50)
[2022-12-20 22:58] LABS: C REACTIVE PROTEIN QUANTITATIV < 0.40 MG/DL (<1.0)
[2022-12-20] MEDS ORDERED: MECL-86 PO (23:14)
[2022-12-20] MEDS ORDERED: OMEP40CA5 PO (23:14)
[2022-12-20] MEDS ORDERED: GABA-282 PO (23:14)
[2022-12-20] MEDS ORDERED: TRAZ-252 PO (23:14)
[2022-12-20] MEDS ORDERED: TREL1AER PO (23:14)
[2022-12-20] MEDS ORDERED: ATOR80TA59 PO (23:14)
[2022-12-20] MEDS ORDERED: HOME MED LIST COMPLETE! XX SCH (23:15)
[2022-12-20] MEDS ORDERED: NS 1,000 ML IV SCH (23:25)
[2022-12-21] VITALS (18 sets, daily range): BP systolic 132–211; BP diastolic 58–93; O2SAT 92–94
[2022-12-21] MEDS ORDERED: hydrALAZINE 20MG/ML 1ML VIAL IV ONE (00:20)
[2022-12-21] MEDS ORDERED: PANTOPRAZOLE 40MG VIAL IV ONE (00:20)
[2022-12-21] MEDS ORDERED: LORazepam 2 MG TAB PO PRN (00:50)
[2022-12-21 01:25] LABS: BLOOD UREA NITROGEN 11 MG/DL (9-23); CALCIUM LEVEL 8.1 MG/DL (8.3-10.6); CARBON DIOXIDE LEVEL 21 MMOL/L (20-31); CHLORIDE LEVEL 98 MMOL/L (98-107); CREATININE FOR GFR 0.63 MG/DL (0.55-1.30); GLOMERULAR FILTRATION RATE > 60.0 (>39); GLUCOSE, FASTING 96 MG/DL (74-106); POTASSIUM SERUM 3.5 MMOL/L (3.5-5.1); SODIUM LEVEL 128 MMOL/L (136-145)
[2022-12-21 01:29] LABS: ETHYL ALCOHOL (ETHANOL) < 0.003 % (0.000-0.010)
[2022-12-21 01:31] LABS: IRON (FE) 12 UG/DL (50-170); PERCENT SATURATION 3.1 % (13.2-45.0); TOTAL IRON BINDING CAPACITY 381 UG/DL (250-425)
[2022-12-21 01:33] LABS: FERRITIN 11.3 NG/ML (7.3-270.7); FOLATE 19.8 NG/ML (>5.4); VITAMIN B12 LEVEL 526 PG/ML (211-911)
[2022-12-21] MEDS: GABAPENTIN 300 MG CAP PO SCH ×2 (03:52→21:02)
[2022-12-21] MEDS: traZODone 50 MG TAB PO SCH ×2 (03:53→21:02)
[2022-12-21] MEDS: CLOPIDOGREL 75 MG TAB PO SCH ×2 (03:53→21:02)
[2022-12-21] MEDS: ATORVASTATIN 20 MG TAB PO SCH ×2 (03:53→21:02)
[2022-12-21] MEDS: TOPIRAMATE (TopAMAX) 25 MG TAB PO SCH ×2 (03:53→21:03)
[2022-12-21] MEDS: MAGNESIUM OXIDE 400MG TAB (MAG-OX) PO SCH ×2 (03:54→14:40)
[2022-12-21 06:07] LABS: HEMATOCRIT 23.7 % (36.0-47.0); HEMOGLOBIN 7.4 g/dl (12.0-15.5); MEAN CORPUSCULAR HEMOGLOBIN 24.6 pg (27.0-33.0); MEAN CORPUSCULAR HGB CONC 31.2 g/dl (32.0-36.5); MEAN CORPUSCULAR VOLUME 78.7 fl (80.0-96.0); PLATELET COUNT, AUTOMATED 246 10^3/uL (150-450); RED BLOOD COUNT 3.01 10^6/uL (4.00-5.40); WHITE BLOOD COUNT 5.4 10^3/uL (4.0-10.0)
[2022-12-21 06:20] LABS: BLOOD UREA NITROGEN 10 MG/DL (9-23); CALCIUM LEVEL 7.9 MG/DL (8.3-10.6); CARBON DIOXIDE LEVEL 21 MMOL/L (20-31); CHLORIDE LEVEL 97 MMOL/L (98-107); CREATININE FOR GFR 0.61 MG/DL (0.55-1.30); GLOMERULAR FILTRATION RATE > 60.0 (>39); GLUCOSE, FASTING 97 MG/DL (74-106); POTASSIUM SERUM 3.2 MMOL/L (3.5-5.1); SODIUM LEVEL 128 MMOL/L (136-145)
[2022-12-21 06:34] LABS: ALBUMIN 3.4 G/DL (3.2-5.2); ALKALINE PHOSPHATASE 93 U/L (46-116); ALT/SGPT 12 U/L (7.0-40); AST/SGOT 15 U/L (<34); BILIRUBIN,TOTAL 0.4 MG/DL (0.3-1.2); BLOOD UREA NITROGEN 11 MG/DL (9-23); CARBON DIOXIDE LEVEL 21 MMOL/L (20-31); CHLORIDE LEVEL 98 MMOL/L (98-107); CREATININE FOR GFR 0.62 MG/DL (0.55-1.30); GLOMERULAR FILTRATION RATE > 60.0 (>39); GLUCOSE, FASTING 96 MG/DL (74-106); MAGNESIUM LEVEL 1.6 MG/DL (1.8-2.4); POTASSIUM SERUM 3.4 MMOL/L (3.5-5.1); SODIUM LEVEL 129 MMOL/L (136-145); TOTAL PROTEIN 6.3 G/DL (5.7-8.2)
[2022-12-21] MEDS ORDERED: SOTALOL HCL 80 MG TAB PO SCH (09:00)
[2022-12-21] MEDS ORDERED: ENOXAPARIN 40MG/0.4ML SYRINGE (J1650 PER 10MG) SC SCH (09:00)
[2022-12-21] MEDS ORDERED: POTASSIUM CHLORIDE 10MEQ SR TABLET PO ONE (09:00)
[2022-12-21] MEDS: NS 1,000 ML IV SCH ×2 (09:12→19:58)
[2022-12-21] MEDS ORDERED: PILL CUTTER 1 EACH XX ONE (11:08)
[2022-12-21] MEDS: FOLIC ACID 1MG TAB PO SCH (11:10)
[2022-12-21] MEDS: THIAMINE 100 MG TAB PO SCH ×2 (11:10→21:02)
[2022-12-21] MEDS: MULTIVITAMINS/MINERALS THERAP 1 TAB PO SCH (11:11)
[2022-12-21] MEDS: ASPIRIN 81MG ENTERIC TABLET PO SCH (11:11)
[2022-12-21] MEDS: **hydrALAZINE HCL** 25 MG TAB PO PRN ×2 (11:13→14:41)
[2022-12-21] MEDS: ACETAMINOPHEN TAB 650MG DOSE (2X325MG) PO PRN (14:48)
[2022-12-21 16:17] LABS: HEMOGLOBIN 8.9 g/dl (12.0-15.5)
[2022-12-21 16:42] LABS: BLOOD UREA NITROGEN 11 MG/DL (9-23); CARBON DIOXIDE LEVEL 21 MMOL/L (20-31); CHLORIDE LEVEL 103 MMOL/L (98-107); CREATININE FOR GFR 0.67 MG/DL (0.55-1.30); GLOMERULAR FILTRATION RATE > 60.0 (>39); GLUCOSE, FASTING 116 MG/DL (74-106); POTASSIUM SERUM 3.9 MMOL/L (3.5-5.1); SODIUM LEVEL 133 MMOL/L (136-145)
[2022-12-21] MEDS ORDERED: LevoFLOXacin IV 750 MG in IV 1 EA IV SCH (19:00)
[2022-12-21] MEDS: SOTALOL 40MG PER 1/2 TABLET PO SCH (21:03)
[2022-12-21 21:48] LABS: SODIUM,RANDOM URINE 47 MMOL/L
[2022-12-21 22:11] LABS: OSMOLALITY URINE 522 MOSM/KG (50-1400)
[2022-12-22] VITALS (36 sets, daily range): BP systolic 156–188; BP diastolic 55–74; O2SAT 88–100
[2022-12-22] MEDS: **hydrALAZINE HCL** 25 MG TAB PO PRN ×3 (00:48→18:09)
[2022-12-22 06:34] LABS: BASO % 0.3 % (0.0-1.0); EOS # 0.1 10^3/uL (0.0-0.5); EOS % 1.4 % (0.0-3.0); HEMATOCRIT 30.8 % (36.0-47.0); HEMOGLOBIN 9.4 g/dl (12.0-15.5); LYMPH # 1.4 10^3/uL (1.5-5.0); LYMPH % 24.5 % (24.0-44.0); MEAN CORPUSCULAR HEMOGLOBIN 24.7 pg (27.0-33.0); MEAN CORPUSCULAR HGB CONC 30.5 g/dl (32.0-36.5); MEAN CORPUSCULAR VOLUME 81.1 fl (80.0-96.0); MONO # 0.9 10^3/uL (0.0-0.8); MONO % 15.2 % (2.0-8.0); NEUTROPHILS # 3.4 10^3/uL (1.5-8.5); NEUTROPHILS % 57.1 % (36.0-66.0); PLATELET COUNT, AUTOMATED 220 10^3/uL (150-450); WHITE BLOOD COUNT 5.9 10^3/uL (4.0-10.0)
[2022-12-22 07:06] LABS: ALBUMIN 3.3 G/DL (3.2-5.2); ALKALINE PHOSPHATASE 88 U/L (46-116); ALT/SGPT 12 U/L (7.0-40); AST/SGOT 14 U/L (<34); BILIRUBIN,TOTAL 0.5 MG/DL (0.3-1.2); BLOOD UREA NITROGEN 10 MG/DL (9-23); CALCIUM LEVEL 7.9 MG/DL (8.3-10.6); CARBON DIOXIDE LEVEL 21 MMOL/L (20-31); CHLORIDE LEVEL 104 MMOL/L (98-107); CREATININE FOR GFR 0.72 MG/DL (0.55-1.30); GLOMERULAR FILTRATION RATE > 60.0 (>39); GLUCOSE, FASTING 88 MG/DL (74-106); MAGNESIUM LEVEL 1.7 MG/DL (1.8-2.4); POTASSIUM SERUM 3.8 MMOL/L (3.5-5.1); SODIUM LEVEL 134 MMOL/L (136-145); TOTAL PROTEIN 6.2 G/DL (5.7-8.2)
[2022-12-22] MEDS ORDERED: MAGNESIUM OXIDE 400MG TAB (MAG-OX) PO ONE (07:30)
[2022-12-22] MEDS: FOLIC ACID 1MG TAB PO SCH (07:34)
[2022-12-22] MEDS: ASPIRIN 81MG ENTERIC TABLET PO SCH (07:34)
[2022-12-22] MEDS: MULTIVITAMINS/MINERALS THERAP 1 TAB PO SCH (07:34)
[2022-12-22] MEDS: THIAMINE 100 MG TAB PO SCH ×2 (07:35→20:25)
[2022-12-22] MEDS: ACETAMINOPHEN TAB 650MG DOSE (2X325MG) PO PRN ×3 (07:36→17:28)
[2022-12-22] MEDS: SOTALOL 40MG PER 1/2 TABLET PO SCH ×2 (09:21→20:24)
[2022-12-22] MEDS: LIDOCAINE 5% (LIDODERM) PATCH TD SCH (15:30)
[2022-12-22] MEDS: TIOTROPIUM INHALER/CAPSULE (SPIRIVA) INH SCH (15:49)
[2022-12-22] MEDS: OMEPRAZOLE 20MG CAP PO SCH (17:28)
[2022-12-22] MEDS: ADVAIR HFA 115/21MCG INHALER INH SCH (19:33)
[2022-12-22] MEDS: traZODone 50 MG TAB PO SCH (20:24)
[2022-12-22] MEDS: SENOKOT S TAB PO SCH (20:24)
[2022-12-22] MEDS ORDERED: IBUPROFEN 200MG TAB PO ONE (20:25)
[2022-12-22] MEDS: GABAPENTIN 300 MG CAP PO SCH (20:25)
[2022-12-22] MEDS: TOPIRAMATE (TopAMAX) 25 MG TAB PO SCH (20:25)
[2022-12-22] MEDS: LevoFLOXacin 750 MG TABLET PO SCH (20:25)
[2022-12-22] MEDS: ATORVASTATIN 20 MG TAB PO SCH (20:25)
[2022-12-22] MEDS: CLOPIDOGREL 75 MG TAB PO SCH (20:25)
[2022-12-22] MEDS ORDERED: FLUTICASONE HFA 110MCG 12GM INHALER (FLOVENT) INH SCH (21:00)
[2022-12-22] MEDS ORDERED: diphenhydrAMINE 25MG CAP PO PRN (22:30)
[2022-12-22] MEDS ORDERED: GI COCKTAIL 50ML BTL(HYOSCYAMINE/MAALOX/LIDOCAINE VISCOUS)(1:3:1) PO ONE (22:30)
[2022-12-23] VITALS (31 sets, daily range): BP systolic 138–202; BP diastolic 62–96; O2SAT 80–100
[2022-12-23] MEDS: ACETAMINOPHEN TAB 650MG DOSE (2X325MG) PO PRN ×2 (04:46→18:46)
[2022-12-23 06:21] LABS: BASO % 0.4 % (0.0-1.0); EOS # 0.1 10^3/uL (0.0-0.5); EOS % 1.4 % (0.0-3.0); HEMATOCRIT 26.1 % (36.0-47.0); HEMOGLOBIN 8.1 g/dl (12.0-15.5); LYMPH # 1.3 10^3/uL (1.5-5.0); LYMPH % 23.6 % (24.0-44.0); MEAN CORPUSCULAR HEMOGLOBIN 25.1 pg (27.0-33.0); MEAN CORPUSCULAR VOLUME 80.8 fl (80.0-96.0); MONO # 0.9 10^3/uL (0.0-0.8); NEUTROPHILS # 3.2 10^3/uL (1.5-8.5); NEUTROPHILS % 57.2 % (36.0-66.0); PLATELET COUNT, AUTOMATED 198 10^3/uL (150-450); RED BLOOD COUNT 3.23 10^6/uL (4.00-5.40); WHITE BLOOD COUNT 5.6 10^3/uL (4.0-10.0)
[2022-12-23] MEDS: BACLOFEN 5MG PER 1/2 TABLET PO PRN ×2 (06:46→21:14)
[2022-12-23 06:59] LABS: ALBUMIN 2.7 G/DL (3.2-5.2); ALKALINE PHOSPHATASE 77 U/L (46-116); ALT/SGPT < 9 U/L (7.0-40); AST/SGOT 13 U/L (<34); BILIRUBIN,TOTAL 0.4 MG/DL (0.3-1.2); BLOOD UREA NITROGEN 18 MG/DL (9-23); CALCIUM LEVEL 7.3 MG/DL (8.3-10.6); CARBON DIOXIDE LEVEL 20 MMOL/L (20-31); CHLORIDE LEVEL 102 MMOL/L (98-107); CREATININE FOR GFR 0.74 MG/DL (0.55-1.30); GLOMERULAR FILTRATION RATE > 60.0 (>39); GLUCOSE, FASTING 86 MG/DL (74-106); MAGNESIUM LEVEL 1.7 MG/DL (1.8-2.4); POTASSIUM SERUM 4.1 MMOL/L (3.5-5.1); SODIUM LEVEL 130 MMOL/L (136-145); TOTAL PROTEIN 5.3 G/DL (5.7-8.2)
[2022-12-23] MEDS ORDERED: MAGNESIUM OXIDE 400MG TAB (MAG-OX) PO ONE (07:25)
[2022-12-23] MEDS: TIOTROPIUM INHALER/CAPSULE (SPIRIVA) INH SCH (07:51)
[2022-12-23] MEDS: ADVAIR HFA 115/21MCG INHALER INH SCH ×2 (07:51→19:22)
[2022-12-23] MEDS: LIDOCAINE 5% (LIDODERM) PATCH TD SCH (08:24)
[2022-12-23] MEDS: OMEPRAZOLE 20MG CAP PO SCH (08:25)
[2022-12-23] MEDS: SOTALOL 40MG PER 1/2 TABLET PO SCH ×2 (08:26→20:25)
[2022-12-23] MEDS: ASPIRIN 81MG ENTERIC TABLET PO SCH (08:26)
[2022-12-23] MEDS: SENOKOT S TAB PO SCH ×2 (08:26→20:24)
[2022-12-23] MEDS: MULTIVITAMINS/MINERALS THERAP 1 TAB PO SCH (08:26)
[2022-12-23] MEDS: FERROUS SULFATE 325MG TAB PO SCH (08:26)
[2022-12-23] MEDS: FOLIC ACID 1MG TAB PO SCH (08:26)
[2022-12-23] MEDS: THIAMINE 100 MG TAB PO SCH ×2 (08:26→20:26)
[2022-12-23] MEDS: **hydrALAZINE HCL** 25 MG TAB PO PRN ×2 (12:05→17:05)
[2022-12-23 13:32] LABS: HEMATOCRIT 30.8 % (36.0-47.0); HEMOGLOBIN 9.2 g/dl (12.0-15.5)
[2022-12-23 14:01] LABS: BLOOD UREA NITROGEN 17 MG/DL (9-23); CALCIUM LEVEL 7.7 MG/DL (8.3-10.6); CARBON DIOXIDE LEVEL 20 MMOL/L (20-31); CHLORIDE LEVEL 102 MMOL/L (98-107); CREATININE FOR GFR 0.74 MG/DL (0.55-1.30); GLOMERULAR FILTRATION RATE > 60.0 (>39); GLUCOSE, FASTING 105 MG/DL (74-106); POTASSIUM SERUM 4.1 MMOL/L (3.5-5.1); SODIUM LEVEL 130 MMOL/L (136-145)
[2022-12-23] MEDS ORDERED: **hydrALAZINE** 10 MG TAB PO ONE (19:00)
[2022-12-23] MEDS: GABAPENTIN 300 MG CAP PO SCH (20:23)
[2022-12-23] MEDS: traZODone 50 MG TAB PO SCH (20:25)
[2022-12-23] MEDS: CLOPIDOGREL 75 MG TAB PO SCH (20:25)
[2022-12-23] MEDS: ATORVASTATIN 20 MG TAB PO SCH (20:25)
[2022-12-23] MEDS: TOPIRAMATE (TopAMAX) 25 MG TAB PO SCH (20:26)
[2022-12-23] MEDS: LevoFLOXacin 750 MG TABLET PO SCH (20:42)
[2022-12-24] VITALS (28 sets, daily range): BP systolic 142–196; BP diastolic 62–92; O2SAT 89–98
[2022-12-24] MEDS: **hydrALAZINE HCL** 25 MG TAB PO PRN (03:59)
[2022-12-24 06:20] LABS: BASO % 0.2 % (0.0-1.0); EOS # 0.1 10^3/uL (0.0-0.5); EOS % 1.5 % (0.0-3.0); HEMATOCRIT 27.5 % (36.0-47.0); HEMOGLOBIN 8.6 g/dl (12.0-15.5); LYMPH # 1.2 10^3/uL (1.5-5.0); LYMPH % 22.6 % (24.0-44.0); MEAN CORPUSCULAR HEMOGLOBIN 25.2 pg (27.0-33.0); MEAN CORPUSCULAR HGB CONC 31.3 g/dl (32.0-36.5); MEAN CORPUSCULAR VOLUME 80.6 fl (80.0-96.0); MONO # 0.7 10^3/uL (0.0-0.8); MONO % 12.5 % (2.0-8.0); NEUTROPHILS # 3.2 10^3/uL (1.5-8.5); PLATELET COUNT, AUTOMATED 221 10^3/uL (150-450); RED BLOOD COUNT 3.41 10^6/uL (4.00-5.40); WHITE BLOOD COUNT 5.4 10^3/uL (4.0-10.0)
[2022-12-24 06:44] LABS: ALBUMIN 3.2 G/DL (3.2-5.2); ALKALINE PHOSPHATASE 81 U/L (46-116); ALT/SGPT 10 U/L (7.0-40); AST/SGOT 15 U/L (<34); BILIRUBIN,TOTAL 0.3 MG/DL (0.3-1.2); BLOOD UREA NITROGEN 13 MG/DL (9-23); CALCIUM LEVEL 7.7 MG/DL (8.3-10.6); CARBON DIOXIDE LEVEL 20 MMOL/L (20-31); CHLORIDE LEVEL 105 MMOL/L (98-107); GLOMERULAR FILTRATION RATE > 60.0 (>39); GLUCOSE, FASTING 88 MG/DL (74-106); MAGNESIUM LEVEL 1.9 MG/DL (1.8-2.4); POTASSIUM SERUM 3.7 MMOL/L (3.5-5.1); SODIUM LEVEL 133 MMOL/L (136-145); TOTAL PROTEIN 6.1 G/DL (5.7-8.2)
[2022-12-24] MEDS ORDERED: PILL CUTTER 1 EACH XX PRN (07:50)
[2022-12-24] MEDS: ACETAMINOPHEN TAB 650MG DOSE (2X325MG) PO PRN (08:36)
[2022-12-24] MEDS: OMEPRAZOLE 20MG CAP PO SCH (08:36)
[2022-12-24] MEDS: FERROUS SULFATE 325MG TAB PO SCH (08:36)
[2022-12-24] MEDS: MULTIVITAMINS/MINERALS THERAP 1 TAB PO SCH (08:36)
[2022-12-24] MEDS: ASPIRIN 81MG ENTERIC TABLET PO SCH (08:37)
[2022-12-24] MEDS: SOTALOL 40MG PER 1/2 TABLET PO SCH ×2 (08:37→20:27)
[2022-12-24] MEDS: FOLIC ACID 1MG TAB PO SCH (08:37)
[2022-12-24] MEDS: **hydrALAZINE HCL** 25 MG TAB PO SCH ×3 (08:39→22:22)
[2022-12-24] MEDS: SENOKOT S TAB PO SCH ×2 (08:40→20:27)
[2022-12-24] MEDS: LIDOCAINE 5% (LIDODERM) PATCH TD SCH (08:40)
[2022-12-24] MEDS: TIOTROPIUM INHALER/CAPSULE (SPIRIVA) INH SCH (10:07)
[2022-12-24] MEDS: ADVAIR HFA 115/21MCG INHALER INH SCH ×2 (10:07→20:53)
[2022-12-24] MEDS ORDERED: MECLIZINE 25 MG TABLET PO PRN (12:25)
[2022-12-24] MEDS: HEPARIN SOD (PORCINE) 5000UNITS/ML 1ML VIAL/SYRINGE SQ SCH ×2 (12:34→20:32)
[2022-12-24] MEDS: traMADol 50 MG TAB PO PRN (12:35)
[2022-12-24] MEDS: TOPIRAMATE (TopAMAX) 25 MG TAB PO SCH (20:28)
[2022-12-24] MEDS: BACLOFEN 5MG PER 1/2 TABLET PO PRN (20:28)
[2022-12-24] MEDS: GABAPENTIN 300 MG CAP PO SCH (20:29)
[2022-12-24] MEDS: LevoFLOXacin 750 MG TABLET PO SCH (20:29)
[2022-12-24] MEDS: traZODone 50 MG TAB PO SCH (20:30)
[2022-12-24] MEDS: ATORVASTATIN 20 MG TAB PO SCH (20:30)
[2022-12-24] MEDS: CLOPIDOGREL 75 MG TAB PO SCH (20:31)
[2022-12-25] VITALS (20 sets, daily range): BP systolic 85–212; BP diastolic 40–84; O2SAT 88–95
[2022-12-25] MEDS: traMADol 50 MG TAB PO PRN ×3 (02:37→20:20)
[2022-12-25] MEDS: **hydrALAZINE HCL** 25 MG TAB PO SCH ×3 (05:39→22:16)
[2022-12-25 06:10] LABS: BASO % 0.4 % (0.0-1.0); EOS # 0.1 10^3/uL (0.0-0.5); EOS % 1.7 % (0.0-3.0); HEMATOCRIT 25.8 % (36.0-47.0); HEMOGLOBIN 7.9 g/dl (12.0-15.5); LYMPH # 1.2 10^3/uL (1.5-5.0); LYMPH % 21.7 % (24.0-44.0); MEAN CORPUSCULAR HEMOGLOBIN 25.1 pg (27.0-33.0); MEAN CORPUSCULAR HGB CONC 30.6 g/dl (32.0-36.5); MEAN CORPUSCULAR VOLUME 81.9 fl (80.0-96.0); MONO # 0.6 10^3/uL (0.0-0.8); MONO % 11.6 % (2.0-8.0); NEUTROPHILS # 3.5 10^3/uL (1.5-8.5); NEUTROPHILS % 63.5 % (36.0-66.0); PLATELET COUNT, AUTOMATED 197 10^3/uL (150-450); RED BLOOD COUNT 3.15 10^6/uL (4.00-5.40); WHITE BLOOD COUNT 5.4 10^3/uL (4.0-10.0)
[2022-12-25 06:36] LABS: ALBUMIN 3.1 G/DL (3.2-5.2); ALKALINE PHOSPHATASE 74 U/L (46-116); ALT/SGPT < 9 U/L (7.0-40); AST/SGOT 14 U/L (<34); BILIRUBIN,TOTAL 0.4 MG/DL (0.3-1.2); BLOOD UREA NITROGEN 14 MG/DL (9-23); CALCIUM LEVEL 7.8 MG/DL (8.3-10.6); CARBON DIOXIDE LEVEL 23 MMOL/L (20-31); CHLORIDE LEVEL 101 MMOL/L (98-107); CREATININE FOR GFR 0.72 MG/DL (0.55-1.30); GLOMERULAR FILTRATION RATE > 60.0 (>39); GLUCOSE, FASTING 96 MG/DL (74-106); MAGNESIUM LEVEL 1.7 MG/DL (1.8-2.4); POTASSIUM SERUM 3.8 MMOL/L (3.5-5.1); SODIUM LEVEL 130 MMOL/L (136-145); TOTAL PROTEIN 5.8 G/DL (5.7-8.2)
[2022-12-25] MEDS ORDERED: MAGNESIUM OXIDE 400MG TAB (MAG-OX) PO ONE (07:20)
[2022-12-25] MEDS: TIOTROPIUM INHALER/CAPSULE (SPIRIVA) INH SCH (07:47)
[2022-12-25] MEDS: ADVAIR HFA 115/21MCG INHALER INH SCH ×2 (07:47→20:33)
[2022-12-25] MEDS: SOTALOL 40MG PER 1/2 TABLET PO SCH ×2 (09:00→20:21)
[2022-12-25] MEDS: HEPARIN SOD (PORCINE) 5000UNITS/ML 1ML VIAL/SYRINGE SQ SCH ×2 (09:12→20:19)
[2022-12-25] MEDS: SENOKOT S TAB PO SCH ×2 (09:12→20:19)
[2022-12-25] MEDS: FERROUS SULFATE 325MG TAB PO SCH (09:12)
[2022-12-25] MEDS: MULTIVITAMINS/MINERALS THERAP 1 TAB PO SCH (09:12)
[2022-12-25] MEDS: FOLIC ACID 1MG TAB PO SCH (09:12)
[2022-12-25] MEDS: OMEPRAZOLE 20MG CAP PO SCH (09:13)
[2022-12-25] MEDS: LIDOCAINE 5% (LIDODERM) PATCH TD SCH (09:15)
[2022-12-25] MEDS: ASPIRIN 81MG ENTERIC TABLET PO SCH (09:15)
[2022-12-25] MEDS ORDERED: ISOVUE-370 76% 100ML VIAL As Ordered ONE (11:17)
[2022-12-25 14:03] LABS: HEMATOCRIT 29.7 % (36.0-47.0); HEMOGLOBIN 8.9 g/dl (12.0-15.5)
[2022-12-25] MEDS: TOPIRAMATE (TopAMAX) 25 MG TAB PO SCH (20:19)
[2022-12-25] MEDS: CLOPIDOGREL 75 MG TAB PO SCH (20:19)
[2022-12-25] MEDS: GABAPENTIN 300 MG CAP PO SCH (20:19)
[2022-12-25] MEDS: traZODone 50 MG TAB PO SCH (20:20)
[2022-12-25] MEDS: ATORVASTATIN 20 MG TAB PO SCH (20:20)
[2022-12-25] MEDS: ALBUTEROL 90 MCG/ACT 8GM HFA INHALER INH PRN (20:34)
[2022-12-26] VITALS (21 sets, daily range): BP systolic 106–176; BP diastolic 53–74; O2SAT 94–97
[2022-12-26] MEDS: **hydrALAZINE HCL** 25 MG TAB PO SCH ×2 (05:46→15:13)
[2022-12-26] MEDS: ADVAIR HFA 115/21MCG INHALER INH SCH ×2 (08:17→20:06)
[2022-12-26] MEDS: TIOTROPIUM INHALER/CAPSULE (SPIRIVA) INH SCH (08:17)
[2022-12-26 09:09] LABS: BASO % 0.4 % (0.0-1.0); EOS # 0.1 10^3/uL (0.0-0.5); EOS % 1.3 % (0.0-3.0); HEMATOCRIT 28.7 % (36.0-47.0); HEMOGLOBIN 8.9 g/dl (12.0-15.5); LYMPH # 1.6 10^3/uL (1.5-5.0); LYMPH % 19.1 % (24.0-44.0); MEAN CORPUSCULAR HEMOGLOBIN 25.6 pg (27.0-33.0); MEAN CORPUSCULAR VOLUME 82.5 fl (80.0-96.0); MONO # 1.1 10^3/uL (0.0-0.8); MONO % 13.5 % (2.0-8.0); NEUTROPHILS # 4.8 10^3/uL (1.5-8.5); NEUTROPHILS % 58.8 % (36.0-66.0); PLATELET COUNT, AUTOMATED 213 10^3/uL (150-450); RED BLOOD COUNT 3.48 10^6/uL (4.00-5.40); WHITE BLOOD COUNT 8.2 10^3/uL (4.0-10.0)
[2022-12-26] MEDS: SOTALOL 40MG PER 1/2 TABLET PO SCH ×2 (09:37→21:00)
[2022-12-26] MEDS: ASPIRIN 81MG ENTERIC TABLET PO SCH (09:37)
[2022-12-26] MEDS: FERROUS SULFATE 325MG TAB PO SCH (09:37)
[2022-12-26] MEDS: HEPARIN SOD (PORCINE) 5000UNITS/ML 1ML VIAL/SYRINGE SQ SCH ×2 (09:37→21:45)
[2022-12-26] MEDS: FOLIC ACID 1MG TAB PO SCH (09:37)
[2022-12-26] MEDS: OMEPRAZOLE 20MG CAP PO SCH (09:37)
[2022-12-26] MEDS: ACETAMINOPHEN TAB 650MG DOSE (2X325MG) PO PRN (09:38)
[2022-12-26] MEDS: MULTIVITAMINS/MINERALS THERAP 1 TAB PO SCH (09:38)
[2022-12-26] MEDS: SENOKOT S TAB PO SCH ×2 (09:38→21:45)
[2022-12-26] MEDS: LIDOCAINE 5% (LIDODERM) PATCH TD SCH (09:39)
[2022-12-26 09:40] LABS: ALBUMIN 3.1 G/DL (3.2-5.2); ALKALINE PHOSPHATASE 85 U/L (46-116); ALT/SGPT 12 U/L (7.0-40); AST/SGOT < 8 U/L (<34); BILIRUBIN,TOTAL 0.3 MG/DL (0.3-1.2); BLOOD UREA NITROGEN 14 MG/DL (9-23); CARBON DIOXIDE LEVEL 23 MMOL/L (20-31); CHLORIDE LEVEL 99 MMOL/L (98-107); CREATININE FOR GFR 0.69 MG/DL (0.55-1.30); GLOMERULAR FILTRATION RATE > 60.0 (>39); GLUCOSE, FASTING 116 MG/DL (74-106); MAGNESIUM LEVEL 1.7 MG/DL (1.8-2.4); POTASSIUM SERUM 3.8 MMOL/L (3.5-5.1); SODIUM LEVEL 132 MMOL/L (136-145); TOTAL PROTEIN 6.2 G/DL (5.7-8.2)
[2022-12-26] MEDS ORDERED: MAGNESIUM OXIDE 400MG TAB (MAG-OX) PO ONE (10:40)
[2022-12-26] MEDS: traMADol 50 MG TAB PO PRN (12:13)
[2022-12-26 15:12] LABS: BODY FLUID CULTURE Not indicated. (.); LEGIONELLA ANTIGEN URINE Negative (Negative); ORGANISM ID Not indicated. (.); SPECIMEN SOURCE Urine (.); URINE STREP PNEUMONIAE ANTIGEN Negative (Negative)
[2022-12-26] MEDS: BACLOFEN 5MG PER 1/2 TABLET PO PRN (21:44)
[2022-12-26] MEDS: TOPIRAMATE (TopAMAX) 25 MG TAB PO SCH (21:44)
[2022-12-26] MEDS: GABAPENTIN 300 MG CAP PO SCH (21:45)
[2022-12-26] MEDS: CLOPIDOGREL 75 MG TAB PO SCH (21:45)
[2022-12-26] MEDS: traZODone 50 MG TAB PO SCH (21:45)
[2022-12-26] MEDS: ATORVASTATIN 20 MG TAB PO SCH (21:45)
[2022-12-26] MEDS: **hydrALAZINE** 50 MG TAB PO SCH (21:46)
[2022-12-26] MEDS: ALBUTEROL 90 MCG/ACT 8GM HFA INHALER INH PRN (21:57)
[2022-12-27] VITALS (21 sets, daily range): BP systolic 107–215; BP diastolic 50–85; O2SAT 87–97
[2022-12-27] MEDS: **hydrALAZINE** 50 MG TAB PO SCH ×3 (05:03→20:59)
[2022-12-27 07:53] LABS: HEMATOCRIT 26.2 % (36.0-47.0); HEMOGLOBIN 8.1 g/dl (12.0-15.5)
[2022-12-27] MEDS: ADVAIR HFA 115/21MCG INHALER INH SCH ×2 (08:12→20:50)
[2022-12-27] MEDS: TIOTROPIUM INHALER/CAPSULE (SPIRIVA) INH SCH (08:12)
[2022-12-27] MEDS: HEPARIN SOD (PORCINE) 5000UNITS/ML 1ML VIAL/SYRINGE SQ SCH ×2 (09:33→20:11)
[2022-12-27] MEDS: SENOKOT S TAB PO SCH ×2 (09:33→20:12)
[2022-12-27] MEDS: ASPIRIN 81MG ENTERIC TABLET PO SCH (09:33)
[2022-12-27] MEDS: FOLIC ACID 1MG TAB PO SCH (09:33)
[2022-12-27] MEDS: MAGNESIUM OXIDE 400MG TAB (MAG-OX) PO SCH (09:33)
[2022-12-27] MEDS: FERROUS SULFATE 325MG TAB PO SCH (09:33)
[2022-12-27] MEDS: OMEPRAZOLE 20MG CAP PO SCH (09:34)
[2022-12-27] MEDS: SOTALOL 40MG PER 1/2 TABLET PO SCH ×2 (09:34→20:18)
[2022-12-27] MEDS: traMADol 50 MG TAB PO PRN ×2 (09:38→14:44)
[2022-12-27] MEDS: LIDOCAINE 5% (LIDODERM) PATCH TD SCH (09:39)
[2022-12-27] MEDS: MULTIVITAMINS/MINERALS THERAP 1 TAB PO SCH (09:40)
[2022-12-27] MEDS ORDERED: MAGN400T2 PO (11:03)
[2022-12-27] MEDS ORDERED: HYDR-3910 PO (11:03)
[2022-12-27] MEDS ORDERED: FERR1TAB8 PO (11:03)
[2022-12-27] MEDS ORDERED: VITMTA PO (11:03)
[2022-12-27] MEDS ORDERED: HYDR50TA PO (11:03)
[2022-12-27] MEDS ORDERED: BACL10TA2 PO (11:08)
[2022-12-27] MEDS: ACETAMINOPHEN TAB 650MG DOSE (2X325MG) PO PRN ×2 (14:48→20:13)
[2022-12-27] MEDS ORDERED: ACETAMINOPHEN 325 MG TAB PO ONE (17:30)
[2022-12-27] MEDS ORDERED: LIDOCAINE 5% (LIDODERM) PATCH TD ONE (17:30)
[2022-12-27] MEDS: ATORVASTATIN 20 MG TAB PO SCH (20:11)
[2022-12-27] MEDS: traZODone 50 MG TAB PO SCH (20:12)
[2022-12-27] MEDS: GABAPENTIN 300 MG CAP PO SCH (20:12)
[2022-12-27] MEDS: CLOPIDOGREL 75 MG TAB PO SCH (20:12)
[2022-12-27] MEDS: BACLOFEN 5MG PER 1/2 TABLET PO PRN (20:13)
[2022-12-27] MEDS: TOPIRAMATE (TopAMAX) 25 MG TAB PO SCH (21:00)
[2022-12-28 03:59] VITALS: BP 151/77
[2022-12-28 04:27] LABS: BASO % 0.5 % (0.0-1.0); EOS # 0.1 10^3/uL (0.0-0.5); EOS % 1.3 % (0.0-3.0); HEMATOCRIT 24.8 % (36.0-47.0); HEMOGLOBIN 7.7 g/dl (12.0-15.5); LYMPH # 1.3 10^3/uL (1.5-5.0); LYMPH % 20.6 % (24.0-44.0); MEAN CORPUSCULAR HEMOGLOBIN 25.2 pg (27.0-33.0); MEAN CORPUSCULAR VOLUME 81.3 fl (80.0-96.0); MONO # 1.5 10^3/uL (0.0-0.8); MONO % 22.9 % (2.0-8.0); NEUTROPHILS # 3.4 10^3/uL (1.5-8.5); NEUTROPHILS % 53.4 % (36.0-66.0); PLATELET COUNT, AUTOMATED 178 10^3/uL (150-450); RED BLOOD COUNT 3.05 10^6/uL (4.00-5.40); WHITE BLOOD COUNT 6.4 10^3/uL (4.0-10.0)
[2022-12-28] MEDS: **hydrALAZINE** 50 MG TAB PO SCH ×3 (05:43→22:00)
[2022-12-28 08:15] VITALS: BP 218/80
[2022-12-28 08:30] VITALS: BP 218/80
[2022-12-28] MEDS: MULTIVITAMINS/MINERALS THERAP 1 TAB PO SCH (09:24)
[2022-12-28] MEDS: OMEPRAZOLE 20MG CAP PO SCH (09:24)
[2022-12-28] MEDS: SOTALOL 40MG PER 1/2 TABLET PO SCH ×2 (09:24→20:33)
[2022-12-28] MEDS: FOLIC ACID 1MG TAB PO SCH (09:24)
[2022-12-28] MEDS: ASPIRIN 81MG ENTERIC TABLET PO SCH (09:24)
[2022-12-28] MEDS: FERROUS SULFATE 325MG TAB PO SCH (09:24)
[2022-12-28] MEDS: MAGNESIUM OXIDE 400MG TAB (MAG-OX) PO SCH (09:24)
[2022-12-28] MEDS: HEPARIN SOD (PORCINE) 5000UNITS/ML 1ML VIAL/SYRINGE SQ SCH ×2 (09:25→20:28)
[2022-12-28] MEDS: SENOKOT S TAB PO SCH ×3 (09:25→20:29)
[2022-12-28] MEDS: LIDOCAINE 5% (LIDODERM) PATCH TD SCH (09:26)
[2022-12-28] MEDS: traMADol 50 MG TAB PO PRN (09:26)
[2022-12-28] MEDS: ADVAIR HFA 115/21MCG INHALER INH SCH ×2 (09:28→19:06)
[2022-12-28] MEDS: TIOTROPIUM INHALER/CAPSULE (SPIRIVA) INH SCH (09:28)
[2022-12-28 09:29] VITALS: O2SAT 90
[2022-12-28 11:00] VITALS: BP 170/58
[2022-12-28 14:17] LABS: HEMATOCRIT 26.9 % (36.0-47.0); HEMOGLOBIN 8.2 g/dl (12.0-15.5)
[2022-12-28] MEDS: ACETAMINOPHEN TAB 650MG DOSE (2X325MG) PO PRN (16:15)
[2022-12-28] MEDS: ALBUTEROL 90 MCG/ACT 8GM HFA INHALER INH PRN (19:06)
[2022-12-28] MEDS: ATORVASTATIN 20 MG TAB PO SCH (20:28)
[2022-12-28] MEDS: GABAPENTIN 300 MG CAP PO SCH (20:28)
[2022-12-28] MEDS: traZODone 50 MG TAB PO SCH (20:29)
[2022-12-28] MEDS: CLOPIDOGREL 75 MG TAB PO SCH (20:29)
[2022-12-28] MEDS: TOPIRAMATE (TopAMAX) 25 MG TAB PO SCH (20:29)
[2022-12-28 22:00] VITALS: BP 120/75
[2022-12-28 23:38] LABS: SOURCE, BODY FLUID LFT KNEE; SYNOVIAL FLUID COLOR YELLOW (COLORLESS)
[2022-12-28 23:51] LABS: CRYSTALS, BODY FLUID NONE SEEN (NONE SEEN); SOURCE, BODY FLUID CRYSTALS LFT KNEE
[2022-12-29] MEDS: **hydrALAZINE** 50 MG TAB PO SCH ×3 (05:57→22:00)
[2022-12-29 06:00] VITALS: BP 140/74
[2022-12-29] MEDS: traMADol 50 MG TAB PO PRN (06:00)
[2022-12-29] MEDS: TIOTROPIUM INHALER/CAPSULE (SPIRIVA) INH SCH (07:36)
[2022-12-29] MEDS: ADVAIR HFA 115/21MCG INHALER INH SCH ×2 (07:37→20:24)
[2022-12-29] MEDS: SOTALOL 40MG PER 1/2 TABLET PO SCH ×2 (09:52→20:12)
[2022-12-29] MEDS: ASPIRIN 81MG ENTERIC TABLET PO SCH (09:53)
[2022-12-29] MEDS: MAGNESIUM OXIDE 400MG TAB (MAG-OX) PO SCH (09:53)
[2022-12-29] MEDS: FOLIC ACID 1MG TAB PO SCH (09:53)
[2022-12-29] MEDS: FERROUS SULFATE 325MG TAB PO SCH (09:53)
[2022-12-29] MEDS: MULTIVITAMINS/MINERALS THERAP 1 TAB PO SCH (09:53)
[2022-12-29] MEDS: OMEPRAZOLE 20MG CAP PO SCH (09:53)
[2022-12-29] MEDS: LIDOCAINE 5% (LIDODERM) PATCH TD SCH (09:54)
[2022-12-29] MEDS: HEPARIN SOD (PORCINE) 5000UNITS/ML 1ML VIAL/SYRINGE SQ SCH ×2 (09:54→20:12)
[2022-12-29] MEDS: SENOKOT S TAB PO SCH ×2 (09:54→20:13)
[2022-12-29] MEDS: ACETAMINOPHEN TAB 650MG DOSE (2X325MG) PO PRN (16:31)
[2022-12-29] MEDS: ATORVASTATIN 20 MG TAB PO SCH (20:12)
[2022-12-29] MEDS: traZODone 50 MG TAB PO SCH (20:13)
[2022-12-29] MEDS: CLOPIDOGREL 75 MG TAB PO SCH (20:13)
[2022-12-29] MEDS: TOPIRAMATE (TopAMAX) 25 MG TAB PO SCH (20:13)
[2022-12-29] MEDS: GABAPENTIN 300 MG CAP PO SCH (20:13)
[2022-12-30] MEDS: traMADol 50 MG TAB PO PRN ×2 (02:59→08:38)
[2022-12-30 06:00] VITALS: BP 108/74
[2022-12-30] MEDS: **hydrALAZINE** 50 MG TAB PO SCH (06:00)
[2022-12-30] MEDS: ADVAIR HFA 115/21MCG INHALER INH SCH (07:17)
[2022-12-30] MEDS: TIOTROPIUM INHALER/CAPSULE (SPIRIVA) INH SCH (07:17)
[2022-12-30 08:15] VITALS: BP 108/74
[2022-12-30] MEDS: SOTALOL 40MG PER 1/2 TABLET PO SCH (08:15)
[2022-12-30] MEDS: MAGNESIUM OXIDE 400MG TAB (MAG-OX) PO SCH (08:25)
[2022-12-30] MEDS: SENOKOT S TAB PO SCH (08:25)
[2022-12-30] MEDS: OMEPRAZOLE 20MG CAP PO SCH (08:25)
[2022-12-30] MEDS: MULTIVITAMINS/MINERALS THERAP 1 TAB PO SCH (08:25)
[2022-12-30] MEDS: FOLIC ACID 1MG TAB PO SCH (08:26)
[2022-12-30] MEDS: HEPARIN SOD (PORCINE) 5000UNITS/ML 1ML VIAL/SYRINGE SQ SCH (08:26)
[2022-12-30] MEDS: FERROUS SULFATE 325MG TAB PO SCH (08:26)
[2022-12-30] MEDS: ASPIRIN 81MG ENTERIC TABLET PO SCH (08:26)
[2022-12-30] MEDS: LIDOCAINE 5% (LIDODERM) PATCH TD SCH (08:27)
== END 2022-12-30 12:59 | DRG 811 ==
LOC: EDSEX 18:42 → EDBD 18:42 → M ED 18:42 → M ED INP 23:22 → ENRESERV 12-21 13:07 → M PCU 12-21 13:51 → M MSPAV 12-28 08:22
PROVIDERS: ADMIT Internal Medicine; ATTEND Family Medicine
PROC: 30233N1 Transfusion of Nonautologous Red Blood Cells into Peripheral Vein, Percutaneous Approach (ICD-10-PCS; principal; 2022-12-21)
DX: D64.9 Anemia, unspecified (principal); J18.9 Pneumonia, unspecified organism; E87.1 Hypo-osmolality and hyponatremia; E87.20 Acidosis, unspecified; J98.11 Atelectasis; I10 Essential (primary) hypertension; I73.9 Peripheral vascular disease, unspecified; E78.5 Hyperlipidemia, unspecified; I65.29 Occlusion and stenosis of unspecified carotid artery; I25.10 Atherosclerotic heart disease of native coronary artery without angina pectoris; I48.91 Unspecified atrial fibrillation; Z86.73 Personal history of transient ischemic attack (TIA), and cerebral infarction without residual deficits; J44.9 Chronic obstructive pulmonary disease, unspecified; Z99.81 Dependence on supplemental oxygen; Z79.82 Long term (current) use of aspirin; Z79.899 Other long term (current) drug therapy; Z88.8 Allergy status to other drugs, medicaments and biological substances; K21.9 Gastro-esophageal reflux disease without esophagitis; M19.90 Unspecified osteoarthritis, unspecified site; E55.9 Vitamin D deficiency, unspecified; Z90.49 Acquired absence of other specified parts of digestive tract; Z90.79 Acquired absence of other genital organ(s); Z20.822 Contact with and (suspected) exposure to COVID-19; Z87.891 Personal history of nicotine dependence

== ENCOUNTER → 2023-07-11 | Outpatient (REF) | payer MEDICARE, MEDICAID ==
[~2023-07-11] MED LIST changes: +ATOR80TA59 PO; +BACL10TA2 PO; +FERR1TAB8 PO; +GABA-282 PO; +HYDR-3910 PO; +HYDR50TA PO; +MAGN400T2 PO; +OMEP40CA5 PO; +TRAZ-252 PO; +TREL1AER PO; +VITMTA PO
[2023-07-11 08:30] LABS: HEMATOCRIT 28.6 % (36.0-47.0); HEMOGLOBIN 9.4 g/dl (12.0-15.5); MEAN CORPUSCULAR HEMOGLOBIN 30.4 pg (27.0-33.0); MEAN CORPUSCULAR HGB CONC 32.9 g/dl (32.0-36.5); MEAN CORPUSCULAR VOLUME 92.6 fl (80.0-96.0); PLATELET COUNT, AUTOMATED 183 10^3/uL (150-450); RED BLOOD COUNT 3.09 10^6/uL (4.00-5.40); WHITE BLOOD COUNT 7.4 10^3/uL (4.0-10.0)
[2023-07-11 08:55] LABS: ALKALINE PHOSPHATASE 52 U/L (46-116); ALT/SGPT 12 U/L (7.0-40); AST/SGOT 13 U/L (<34); BILIRUBIN,TOTAL 0.3 MG/DL (0.3-1.2); BLOOD UREA NITROGEN 19 MG/DL (9-23); CALCIUM LEVEL 8.3 MG/DL (8.3-10.6); CARBON DIOXIDE LEVEL 22 MMOL/L (20-31); CHLORIDE LEVEL 110 MMOL/L (98-107); CHOLESTEROL LEVEL 110 MG/DL (<200); CHOLESTEROL RISK RATIO 3.02 (<5); CREATININE FOR GFR 0.66 MG/DL (0.55-1.30); GLOMERULAR FILTRATION RATE > 60.0 (>39); GLUCOSE, FASTING 92 MG/DL (74-106); HDL CHOLESTEROL 36.4 MG/DL (>40); LDL CHOLESTEROL 46.4 MG/DL (<100); NON-HDL-C 73.6 MG/DL; POTASSIUM SERUM 3.5 MMOL/L (3.5-5.1); SODIUM LEVEL 142 MMOL/L (136-145); TOTAL PROTEIN 5.7 G/DL (5.7-8.2); TRIGLYCERIDES LEVEL 136 MG/DL (<150)
== END ==
LOC: SKLAB4 07:16
PROVIDERS: ATTEND Internal Medicine
DX: I50.9 Heart failure, unspecified (principal)

== ENCOUNTER → 2023-07-15 | Outpatient (REF) ==
[~2023-07-15] MED LIST changes: +TOPI-21 PO; -TOPI-254 PO
== END ==
LOC: SKLAB4 17:27
PROVIDERS: ATTEND Internal Medicine
DX: R06.02 Shortness of breath (principal)

== ENCOUNTER → 2023-07-15 | Outpatient (REF) | payer MEDICARE, MEDICAID | LOC: SKLAB4 15:24 | PROVIDERS: ATTEND Internal Medicine | DX: R06.02 Shortness of breath (principal); Z53.8 Procedure and treatment not carried out for other reasons ==

== ENCOUNTER → 2023-07-18 | Outpatient (REF) | payer MEDICARE, MEDICAID ==
[2023-07-18 07:17] LABS: BLOOD UREA NITROGEN 13 MG/DL (9-23); CALCIUM LEVEL 8.5 MG/DL (8.3-10.6); CARBON DIOXIDE LEVEL 21 MMOL/L (20-31); CHLORIDE LEVEL 108 MMOL/L (98-107); CREATININE FOR GFR 0.66 MG/DL (0.55-1.30); GLOMERULAR FILTRATION RATE > 60.0 (>39); GLUCOSE, FASTING 93 MG/DL (74-106); POTASSIUM SERUM 4.1 MMOL/L (3.5-5.1); SODIUM LEVEL 139 MMOL/L (136-145)
== END ==
LOC: SKLAB4 14:54
PROVIDERS: ATTEND Internal Medicine
DX: I10 Essential (primary) hypertension (principal)

== ENCOUNTER → 2023-07-25 | Outpatient (REF) | payer MEDICARE, MEDICAID ==
[2023-07-25 08:08] LABS: BLOOD UREA NITROGEN 24 MG/DL (9-23); CALCIUM LEVEL 8.6 MG/DL (8.3-10.6); CARBON DIOXIDE LEVEL 22 MMOL/L (20-31); CHLORIDE LEVEL 106 MMOL/L (98-107); CREATININE FOR GFR 0.63 MG/DL (0.55-1.30); GLOMERULAR FILTRATION RATE > 60.0 (>39); GLUCOSE, FASTING 92 MG/DL (74-106); POTASSIUM SERUM 4.2 MMOL/L (3.5-5.1); SODIUM LEVEL 136 MMOL/L (136-145)
== END ==
LOC: SKLAB4 09:41
PROVIDERS: ATTEND Internal Medicine
DX: I10 Essential (primary) hypertension (principal)

== ENCOUNTER → 2023-07-28 | Outpatient (REF) | payer MEDICARE, MEDICAID | LOC: SKLAB4 13:37 | PROVIDERS: ATTEND Nurse Practitioner Adult Health | DX: M25.519 Pain in unspecified shoulder (principal); M54.9 Dorsalgia, unspecified; Z53.8 Procedure and treatment not carried out for other reasons ==

== ENCOUNTER → 2023-07-28 | Outpatient (CLI) | payer MEDICARE, MEDICAID | LOC: M RAD 14:04 | PROVIDERS: ATTEND Nurse Practitioner Adult Health | DX: M25.511 Pain in right shoulder (principal); M54.2 Cervicalgia ==

== ENCOUNTER → 2023-08-01 | Outpatient (REF) | payer MEDICARE, MEDICAID ==
[2023-08-01 06:57] LABS: BLOOD UREA NITROGEN 24 MG/DL (9-23); CALCIUM LEVEL 8.9 MG/DL (8.3-10.6); CARBON DIOXIDE LEVEL 23 MMOL/L (20-31); CHLORIDE LEVEL 106 MMOL/L (98-107); CREATININE FOR GFR 0.66 MG/DL (0.55-1.30); GLOMERULAR FILTRATION RATE > 60.0 (>39); GLUCOSE, FASTING 90 MG/DL (74-106); POTASSIUM SERUM 4.1 MMOL/L (3.5-5.1); SODIUM LEVEL 137 MMOL/L (136-145)
== END ==
LOC: SKLAB4 12:00
PROVIDERS: ATTEND Internal Medicine
DX: I10 Essential (primary) hypertension (principal)

== ENCOUNTER → 2023-08-26 | Outpatient (CLI) | payer MEDICARE | LOC: M RAD 13:29 | PROVIDERS: ATTEND Internal Medicine Pulmonary Disease | DX: J98.4 Other disorders of lung (principal); I70.0 Atherosclerosis of aorta; I25.10 Atherosclerotic heart disease of native coronary artery without angina pectoris ==

== ENCOUNTER → 2023-10-15 | Outpatient (REF) | payer MEDICARE, MEDICAID ==
[~2023-10-15] MED LIST changes: -HYDR-3910 PO; +HYDR25TA87 PO; -HYDR50TA PO; +HYDR50TA47 PO
[2023-10-15 08:35] LABS: BLOOD UREA NITROGEN 21 MG/DL (9-23); CALCIUM LEVEL 8.5 MG/DL (8.3-10.6); CARBON DIOXIDE LEVEL 30 MMOL/L (20-31); CHLORIDE LEVEL 98 MMOL/L (98-107); GLOMERULAR FILTRATION RATE > 60.0 (>39); GLUCOSE, FASTING 94 MG/DL (74-106); POTASSIUM SERUM 3.3 MMOL/L (3.5-5.1); SODIUM LEVEL 136 MMOL/L (136-145)
== END ==
LOC: SKLAB4 09:57
PROVIDERS: ATTEND Nurse Practitioner Adult Health
DX: J44.9 Chronic obstructive pulmonary disease, unspecified (principal)

== ENCOUNTER → 2023-10-21 | Outpatient (REF) | payer MEDICARE, MEDICAID ==
[2023-10-21 08:48] LABS: HEMATOCRIT 27.4 % (36.0-47.0); HEMOGLOBIN 8.5 g/dl (12.0-15.5); MEAN CORPUSCULAR HEMOGLOBIN 26.3 pg (27.0-33.0); MEAN CORPUSCULAR VOLUME 84.8 fl (80.0-96.0); PLATELET COUNT, AUTOMATED 301 10^3/uL (150-450); RED BLOOD COUNT 3.23 10^6/uL (4.00-5.40); WHITE BLOOD COUNT 7.8 10^3/uL (4.0-10.0)
[2023-10-21 09:05] LABS: CALCIUM LEVEL 8.6 MG/DL (8.3-10.6); CREATININE FOR GFR 1.01 MG/DL (0.55-1.30); GLOMERULAR FILTRATION RATE 57.4 (>39); POTASSIUM SERUM 3.7 MMOL/L (3.5-5.1)
== END ==
LOC: SKLAB4 08:00
PROVIDERS: ATTEND Nurse Practitioner
DX: R41.82 Altered mental status, unspecified (principal)

== ENCOUNTER → 2023-10-29 | Outpatient (REF) | payer MEDICARE, MEDICAID ==
[2023-10-29 12:21] LABS: BLOOD UREA NITROGEN 28 MG/DL (9-23); CALCIUM LEVEL 8.9 MG/DL (8.3-10.6); CARBON DIOXIDE LEVEL 30 MMOL/L (20-31); CHLORIDE LEVEL 99 MMOL/L (98-107); GLOMERULAR FILTRATION RATE > 60.0 (>39); GLUCOSE, FASTING 105 MG/DL (74-106); POTASSIUM SERUM 3.6 MMOL/L (3.5-5.1); SODIUM LEVEL 136 MMOL/L (136-145)
== END ==
LOC: SKLAB4 14:00
PROVIDERS: ATTEND Nurse Practitioner Adult Health
DX: I10 Essential (primary) hypertension (principal)

== ENCOUNTER → 2023-11-25 | Outpatient (CLI) | payer MEDICARE, MEDICAID | LOC: M RAD 10:49 | PROVIDERS: ATTEND Internal Medicine | DX: J90 Pleural effusion, not elsewhere classified (principal); I70.0 Atherosclerosis of aorta ==

== ENCOUNTER → 2023-11-25 | Outpatient (REF) | payer MEDICARE, MEDICAID | LOC: SKLAB4 09:48 | PROVIDERS: ATTEND Nurse Practitioner Adult Health | DX: R05.9 Cough, unspecified (principal); Z53.8 Procedure and treatment not carried out for other reasons ==

== ENCOUNTER 2023-12-11 14:55 | Inpatient (IN) | payer MEDICARE, MEDICAID ==
[~2023-12-11] VITALS: Ht 154.9 cm; Wt 38.4 kg
[2023-12-11] VITALS (8 sets, daily range): BP systolic 122–184; BP diastolic 56–79; TEMP 96.9–97.8; O2SAT 94–100
[2023-12-11] MEDS: POTASSIUM CHLORIDE 10% LIQ 20MEQ/15ML UDC PO SCH
[~2023-12-11 14:55] MED LIST changes: -ACET1TAB55 PO; -CHLO125TA PO; -HYDR-3713 PO; -MELA5TAB58 PO; -MYLA1SUS PO; -OLME20TA50 PO; -PANT20TA6 PO; -TOPI25TA10 PO
[2023-12-11] MEDS: NS IV ONE (15:25)
[2023-12-11] MEDS: NS 1,000 ML IV ONE (15:25)
[2023-12-11] MEDS: PANTOPRAZOLE 40MG VIAL IV ONE ×2 (15:30→17:40)
[2023-12-11] MEDS: LIDOCAINE 2% 5ML JELLY UROJET TOP ONE (15:30)
[2023-12-11 15:32] LABS: VENOUS BASE EXCESS 1.6 (-2.0-2.0); VENOUS HCO3 26.6 MMOL/L (23.0-27.0); VENOUS O2 SATURATION 70.9 % (60.0-80.0); VENOUS PARTIAL PRESSURE CO2 43.6 mmHg (38.0-50.0); VENOUS PARTIAL PRESSURE O2 40.3 mmHg (30.0-50.0); VENOUS PH 7.403 UNITS (7.330-7.430); VENOUS STANDARD HCO3 25.5 MMOL/L; VENOUS TOTAL CO2 27.9 MMOL/L (24.0-28.0)
[2023-12-11 15:39] LABS: BASO % 0.3 % (0.0-1.0); EOS # 0.1 10^3/uL (0.0-0.5); EOS % 0.9 % (0.0-3.0); HEMATOCRIT 24.2 % (36.0-47.0); HEMOGLOBIN 7.6 g/dl (12.0-15.5); LYMPH # 1.2 10^3/uL (1.5-5.0); LYMPH % 18.7 % (24.0-44.0); MEAN CORPUSCULAR HEMOGLOBIN 25.6 pg (27.0-33.0); MEAN CORPUSCULAR HGB CONC 31.4 g/dl (32.0-36.5); MEAN CORPUSCULAR VOLUME 81.5 fl (80.0-96.0); MONO # 0.8 10^3/uL (0.0-0.8); MONO % 12.1 % (2.0-8.0); NEUTROPHILS # 4.3 10^3/uL (1.5-8.5); NEUTROPHILS % 65.1 % (36.0-66.0); PLATELET COUNT, AUTOMATED 420 10^3/uL (150-450); RED BLOOD COUNT 2.97 10^6/uL (4.00-5.40); WHITE BLOOD COUNT 6.5 10^3/uL (4.0-10.0)
[2023-12-11 15:49] LABS: INR 1.06; PARTIAL THROMBOPLASTIN TIME 29.8 SECONDS (24.8-34.2); PROTHROMBIN TIME 13.5 SECONDS (12.5-14.5)
[2023-12-11] MEDS ORDERED: ISOVUE-370 76% 100ML VIAL As Ordered ONE (16:08)
[2023-12-11 16:09] LABS: C REACTIVE PROTEIN QUANTITATIV < 0.40 MG/DL (<1.0)
[2023-12-11 16:10] LABS: AMYLASE 59 U/L (30-118)
[2023-12-11 16:17] LABS: PROCALCITONIN 0.09 ng/ml
[2023-12-11 16:31] LABS: APPEARANCE, URINE CLEAR (CLEAR); BACTERIA, URINE AUTO NEGATIVE (NEGATIVE); BILIRUBIN, URINE AUTO NEGATIVE (NEGATIVE); BLOOD, URINE BLOOD NEGATIVE (NEGATIVE); COLOR, URINE YELLOW (YELLOW); GLUCOSE, URINE (UA) AUTO NEGATIVE (NEGATIVE); KETONE, URINE AUTO NEGATIVE (NEGATIVE); LEUKOCYTE ESTERASE, URINE AUTO NEGATIVE (NEGATIVE); MUCUS, URINE SMALL (NEGATIVE); NITRITE, URINE AUTO NEGATIVE (NEGATIVE); PROTEIN, URINE AUTO 1+ mg/dL (NEGATIVE); RBC, URINE AUTO 1 /HPF (0-3); SPECIFIC GRAVITY URINE AUTO 1.018 (1.002-1.035); SQUAMOUS EPITHELIAL CELL UR AU 0 /HPF (0-6); UROBILINOGEN, URINE AUTO 0.2 mg/dL (0.0-2.0); WBC, URINE AUTO 2 /HPF (0-3)
[2023-12-11 16:45] LABS: ALBUMIN 3.6 G/DL (3.2-5.2); ALKALINE PHOSPHATASE 77 U/L (46-116); ALT/SGPT 11 U/L (7.0-40); AST/SGOT 12 U/L (<34); BILIRUBIN,DIRECT 0.1 MG/DL (<0.4); BILIRUBIN,TOTAL 0.4 MG/DL (0.3-1.2); BLOOD UREA NITROGEN 24 MG/DL (9-23); CALCIUM LEVEL 8.9 MG/DL (8.3-10.6); CARBON DIOXIDE LEVEL 27 MMOL/L (20-31); CHLORIDE LEVEL 96 MMOL/L (98-107); CREATININE FOR GFR 0.95 MG/DL (0.55-1.30); GLOMERULAR FILTRATION RATE > 60.0 (>39); GLUCOSE, FASTING 103 MG/DL (74-106); POTASSIUM SERUM 2.9 MMOL/L (3.5-5.1); SODIUM LEVEL 134 MMOL/L (136-145); TOTAL PROTEIN 7.2 G/DL (5.7-8.2)
[2023-12-11] MEDS: POTASSIUM CHLORIDE 10MEQ SR TABLET PO ONE (17:40)
[2023-12-11] MEDS: SUCRALFATE SUSP 1GM/10ML UD PO SCH (18:10)
[2023-12-11] MEDS: ACETAMINOPHEN 500 MG TAB PO ONE (20:25)
[2023-12-11] MEDS ORDERED: CHLO125TA PO (20:46)
[2023-12-11] MEDS ORDERED: OLME20TA50 PO (20:46)
[2023-12-11] MEDS ORDERED: TOPI25TA10 PO (20:46)
[2023-12-11] MEDS ORDERED: MYLA1SUS PO (20:46)
[2023-12-11] MEDS ORDERED: PANT20TA6 PO (20:46)
[2023-12-11] MEDS ORDERED: HYDR-3713 PO (20:46)
[2023-12-11] MEDS ORDERED: MELA5TAB58 PO (20:47)
[2023-12-11] MEDS ORDERED: ATORVASTATIN 20 MG TAB PO SCH (21:00)
[2023-12-11] MEDS ORDERED: GABAPENTIN 300 MG CAP PO SCH (21:00)
[2023-12-11] MEDS ORDERED: ACET1TAB55 PO (21:09)
[2023-12-11] MEDS ORDERED: HOME MED LIST COMPLETE! XX SCH (21:10)
[2023-12-11] MEDS: GOLYTELY SOLN 4000 ML BTL PO ONE (23:50)
[2023-12-12] VITALS (9 sets, daily range): BP systolic 132–170; BP diastolic 60–88; TEMP 96.7–97.8; O2SAT 96–98
[2023-12-12] MEDS: **hydrALAZINE HCL** 25 MG TAB PO SCH
[2023-12-12] MEDS: NORCO, ANEXSIA 5/325MG TABLET (HYDROcodone/ACETAMINOPHEN) PO ONE (02:05)
[2023-12-12] MEDS ORDERED: POTASSIUM CHLORIDE 10MEQ SR TABLET PO ONE (02:45)
[2023-12-12 03:58] LABS: BLOOD UREA NITROGEN 15 MG/DL (9-23); CALCIUM LEVEL 7.8 MG/DL (8.3-10.6); CARBON DIOXIDE LEVEL 23 MMOL/L (20-31); CHLORIDE LEVEL 107 MMOL/L (98-107); CREATININE FOR GFR 0.71 MG/DL (0.55-1.30); GLOMERULAR FILTRATION RATE > 60.0 (>39); GLUCOSE, FASTING 91 MG/DL (74-106); POTASSIUM SERUM 4.9 MMOL/L (3.5-5.1); SODIUM LEVEL 138 MMOL/L (136-145)
[2023-12-12 05:41] LABS: HEMATOCRIT 37.4 % (36.0-47.0); MEAN CORPUSCULAR HEMOGLOBIN 27.5 pg (27.0-33.0); MEAN CORPUSCULAR HGB CONC 33.2 g/dl (32.0-36.5); MEAN CORPUSCULAR VOLUME 82.9 fl (80.0-96.0); RED BLOOD COUNT 4.51 10^6/uL (4.00-5.40); WHITE BLOOD COUNT 8.5 10^3/uL (4.0-10.0)
[2023-12-12 05:44] LABS: HEMOGLOBIN 12.4 g/dl (12.0-15.5); PLATELET COUNT, AUTOMATED 294 10^3/uL (150-450)
[2023-12-12 05:57] LABS: BLOOD UREA NITROGEN 14 MG/DL (9-23); CALCIUM LEVEL 7.5 MG/DL (8.3-10.6); CARBON DIOXIDE LEVEL 23 MMOL/L (20-31); CHLORIDE LEVEL 109 MMOL/L (98-107); CREATININE FOR GFR 0.67 MG/DL (0.55-1.30); GLOMERULAR FILTRATION RATE > 60.0 (>39); GLUCOSE, FASTING 80 MG/DL (74-106); MAGNESIUM LEVEL 1.9 MG/DL (1.8-2.4); POTASSIUM SERUM 4.9 MMOL/L (3.5-5.1); SODIUM LEVEL 140 MMOL/L (136-145)
[2023-12-12] MEDS: MAGNESIUM CITRATE 300ML BTL PO ONE (08:11)
[2023-12-12] MEDS: PANTOPRAZOLE 40MG VIAL IV SCH (08:11)
[2023-12-12] MEDS: D5W/0.45% SODIUM CHLORIDE 1,000 ML IV SCH (08:11)
[2023-12-12] MEDS ORDERED: SOTALOL HCL 80 MG TAB PO SCH (09:00)
[2023-12-12 12:16] LABS: HEMATOCRIT 38.8 % (36.0-47.0); HEMOGLOBIN 13.4 g/dl (12.0-15.5)
[2023-12-12] MEDS ORDERED: propofoL 200 MG/20 ML VIAL As Ordered ONE (14:52)
[2023-12-12] MEDS ORDERED: PHENYLephrine 500MCG 5ML (100MCG/ML) SYRINGE As Ordered ONE (15:14)
[2023-12-12] MEDS ORDERED: CALCIUM CHLORIDE 10% 1 GM/10 ML SYR As Ordered ONE (15:14)
[2023-12-12] MEDS ORDERED: ePHEDrine SULFATE 25 MG/5 ML(5MG/ML) SYRINGE As Ordered ONE (15:18)
[2023-12-12] MEDS: TOPIRAMATE (TopAMAX) 25 MG TAB PO SCH (20:45)
[2023-12-12] MEDS: GABAPENTIN 300 MG CAP PO SCH (20:45)
[2023-12-12] MEDS: ATORVASTATIN 20 MG TAB PO SCH (20:45)
[2023-12-13] VITALS (10 sets, daily range): BP systolic 138–170; BP diastolic 66–106; TEMP 97.6–98; O2SAT 95–99
[2023-12-13] MEDS: hydrALAZINE 20MG/ML 1ML VIAL IV ONE ×2 (01:08→05:00)
[2023-12-13] MEDS: **hydrALAZINE HCL** 25 MG TAB PO ONE (19:58)
[2023-12-13] MEDS: ACETAMINOPHEN TAB 650MG DOSE (2X325MG) PO PRN (20:02)
[2023-12-14 05:58] VITALS: BP 139/79; TEMP 97.9; O2SAT 97
[2023-12-14 06:19] LABS: HEMATOCRIT 47.2 % (36.0-47.0); MEAN CORPUSCULAR HEMOGLOBIN 27.1 pg (27.0-33.0); MEAN CORPUSCULAR HGB CONC 34.5 g/dl (32.0-36.5); MEAN CORPUSCULAR VOLUME 78.5 fl (80.0-96.0); PLATELET COUNT, AUTOMATED 284 10^3/uL (150-450); RED BLOOD COUNT 6.01 10^6/uL (4.00-5.40); WHITE BLOOD COUNT 9.6 10^3/uL (4.0-10.0)
[2023-12-14 06:21] LABS: HEMOGLOBIN 16.3 g/dl (12.0-15.5)
[2023-12-14 06:50] LABS: BLOOD UREA NITROGEN 9 MG/DL (9-23); CALCIUM LEVEL 8.4 MG/DL (8.3-10.6); CARBON DIOXIDE LEVEL 25 MMOL/L (20-31); CHLORIDE LEVEL 96 MMOL/L (98-107); CREATININE FOR GFR 0.72 MG/DL (0.55-1.30); GLOMERULAR FILTRATION RATE > 60.0 (>39); GLUCOSE, FASTING 101 MG/DL (74-106); POTASSIUM SERUM 3.1 MMOL/L (3.5-5.1); SODIUM LEVEL 131 MMOL/L (136-145)
[2023-12-14] MEDS ORDERED: POTASSIUM CHLORIDE 10MEQ SR TABLET PO ONE (07:25)
[2023-12-14] MEDS: KCL 20MEQ in NS 1000ML 1,000 ML IV SCH (08:54)
[2023-12-14] MEDS: POTASSIUM CHLORIDE 10% LIQ 20MEQ/15ML UDC PO ONE (08:55)
[2023-12-14 13:59] VITALS: BP 138/67; TEMP 97.9; O2SAT 99
[2023-12-14 19:38] VITALS: BP 146/63; TEMP 97.9; O2SAT 96
[2023-12-14] MEDS: zolPIDEM TARTRATE 5 MG TAB PO SCH (21:24)
[2023-12-15 05:35] VITALS: BP 138/54; TEMP 97.9; O2SAT 96
[2023-12-15 05:38] VITALS: BP 138/54
[2023-12-15 06:18] LABS: HEMATOCRIT 38.2 % (36.0-47.0); MEAN CORPUSCULAR HEMOGLOBIN 27.5 pg (27.0-33.0); MEAN CORPUSCULAR HGB CONC 33.8 g/dl (32.0-36.5); MEAN CORPUSCULAR VOLUME 81.4 fl (80.0-96.0); PLATELET COUNT, AUTOMATED 223 10^3/uL (150-450); RED BLOOD COUNT 4.69 10^6/uL (4.00-5.40); WHITE BLOOD COUNT 6.5 10^3/uL (4.0-10.0)
[2023-12-15 06:19] LABS: HEMOGLOBIN 12.9 g/dl (12.0-15.5)
[2023-12-15 06:41] LABS: BLOOD UREA NITROGEN 15 MG/DL (9-23); CALCIUM LEVEL 7.4 MG/DL (8.3-10.6); CARBON DIOXIDE LEVEL 23 MMOL/L (20-31); CHLORIDE LEVEL 103 MMOL/L (98-107); CREATININE FOR GFR 0.72 MG/DL (0.55-1.30); GLOMERULAR FILTRATION RATE > 60.0 (>39); GLUCOSE, FASTING 93 MG/DL (74-106); POTASSIUM SERUM 3.2 MMOL/L (3.5-5.1); SODIUM LEVEL 136 MMOL/L (136-145)
[2023-12-15] MEDS ORDERED: CARA1TAB6 PO (07:15)
[2023-12-15] MEDS ORDERED: PROT1TAB2 PO (07:15)
[2023-12-15] MEDS: CALCIUM GLUCONATE 1,000 MG in D5W MINI-BAG PLUS 100 ML IV ONE (07:37)
[2023-12-15] MEDS: POTASSIUM CHLORIDE 10MEQ SR TABLET PO ONE (07:37)
[2023-12-15] MEDS ORDERED: FERR325T3 PO (10:06)
[2023-12-15] MEDS ORDERED: SENO8.6T10 PO (10:06)
[2023-12-15] MEDS ORDERED: MIRA3350 PO (10:06)
[2023-12-15] MEDS ORDERED: VITA500C24 PO (10:06)
== END 2023-12-15 11:35 | DRG 811 ==
LOC: M ED 14:55 → M ED INP 17:25 → ENRESERV 20:48 → M PCU 21:58 → M MS5PR 12-13 17:54
PROVIDERS: ADMIT General Practice; ATTEND General Practice
PROC: 30233N1 Transfusion of Nonautologous Red Blood Cells into Peripheral Vein, Percutaneous Approach (ICD-10-PCS; principal; 2023-12-11)
PROC: 0DB38ZX Excision of Lower Esophagus, Via Natural or Artificial Opening Endoscopic, Diagnostic (ICD-10-PCS; 2023-12-12)
PROC: 0DJD8ZZ Inspection of Lower Intestinal Tract, Via Natural or Artificial Opening Endoscopic (ICD-10-PCS; 2023-12-12)
DX: D50.0 Iron deficiency anemia secondary to blood loss (chronic) (principal); E43 Unspecified severe protein-calorie malnutrition; K92.2 Gastrointestinal hemorrhage, unspecified; I48.21 Permanent atrial fibrillation; D68.32 Hemorrhagic disorder due to extrinsic circulating anticoagulants; J44.9 Chronic obstructive pulmonary disease, unspecified; I10 Essential (primary) hypertension; E87.6 Hypokalemia; E78.5 Hyperlipidemia, unspecified; I69.398 Other sequelae of cerebral infarction; H54.7 Unspecified visual loss; K31.89 Other diseases of stomach and duodenum; K21.9 Gastro-esophageal reflux disease without esophagitis; M19.90 Unspecified osteoarthritis, unspecified site; E55.9 Vitamin D deficiency, unspecified; I65.21 Occlusion and stenosis of right carotid artery; Z90.79 Acquired absence of other genital organ(s); Z90.49 Acquired absence of other specified parts of digestive tract; Z87.891 Personal history of nicotine dependence; Z79.02 Long term (current) use of antithrombotics/antiplatelets; Z79.82 Long term (current) use of aspirin; Z79.899 Other long term (current) drug therapy; Z88.8 Allergy status to other drugs, medicaments and biological substances

== ENCOUNTER → 2023-12-11 | Outpatient (REF) | payer MEDICARE, MEDICAID ==
[~2023-12-11] MED LIST changes: +ACET1TAB55 PO; +CHLO125TA PO; +HYDR-3713 PO; +MELA5TAB58 PO; +MYLA1SUS PO; +OLME20TA50 PO; +PANT20TA6 PO; +TOPI25TA10 PO; +TREL1AER INH; -TREL1AER PO
== END ==
LOC: SKLAB4 13:19
PROVIDERS: ATTEND Internal Medicine
DX: I95.9 Hypotension, unspecified (principal); R00.1 Bradycardia, unspecified; R06.02 Shortness of breath

== ENCOUNTER → 2023-12-11 | Outpatient (REF) | payer MEDICARE, MEDICAID ==
[2023-12-11 13:50] LABS: MEAN CORPUSCULAR HEMOGLOBIN 25.5 pg (27.0-33.0); MEAN CORPUSCULAR HGB CONC 31.3 g/dl (32.0-36.5); MEAN CORPUSCULAR VOLUME 81.3 fl (80.0-96.0); PLATELET COUNT, AUTOMATED 386 10^3/uL (150-450); RED BLOOD COUNT 2.67 10^6/uL (4.00-5.40); WHITE BLOOD COUNT 5.8 10^3/uL (4.0-10.0)
[2023-12-11 13:56] LABS: HEMATOCRIT 21.7 % (36.0-47.0); HEMOGLOBIN 6.8 g/dl (12.0-15.5)
[2023-12-11 14:50] LABS: ALBUMIN 3.2 G/DL (3.2-5.2); ALKALINE PHOSPHATASE 68 U/L (46-116); ALT/SGPT 11 U/L (7.0-40); AST/SGOT 11 U/L (<34); BILIRUBIN,TOTAL 0.3 MG/DL (0.3-1.2); BLOOD UREA NITROGEN 25 MG/DL (9-23); CALCIUM LEVEL 8.8 MG/DL (8.3-10.6); CARBON DIOXIDE LEVEL 27 MMOL/L (20-31); CHLORIDE LEVEL 96 MMOL/L (98-107); CREATININE FOR GFR 0.94 MG/DL (0.55-1.30); GLOMERULAR FILTRATION RATE > 60.0 (>39); GLUCOSE, FASTING 100 MG/DL (74-106); SODIUM LEVEL 135 MMOL/L (136-145); TOTAL PROTEIN 6.5 G/DL (5.7-8.2)
== END ==
LOC: SKLAB4 12:53
PROVIDERS: ATTEND Internal Medicine
DX: I95.9 Hypotension, unspecified (principal)

== ENCOUNTER → 2023-12-30 | Outpatient (CLI) | payer MEDICARE, MEDICAID ==
[~2023-12-30] MED LIST changes: +ACET1TAB55 PO; +CARA1TAB6 PO; +CHLO125TA PO; +FERR325T3 PO; +HYDR-3713 PO; +MELA5TAB58 PO; +MIRA3350 PO; +MYLA1SUS PO; +OLME20TA50 PO; +PANT20TA6 PO; +PROT1TAB2 PO; +SENO8.6T10 PO; +TOPI25TA10 PO; +VITA500C24 PO
== END ==
LOC: M RAD 13:09
PROVIDERS: ATTEND Internal Medicine
DX: R09.02 Hypoxemia (principal); R91.8 Other nonspecific abnormal finding of lung field

== ENCOUNTER → 2023-12-30 | Outpatient (REF) | payer MEDICARE, MEDICAID ==
[2023-12-30 11:12] LABS: BASO % 0.6 % (0.0-1.0); EOS # 0.1 10^3/uL (0.0-0.5); EOS % 1.4 % (0.0-3.0); HEMATOCRIT 37.7 % (36.0-47.0); HEMOGLOBIN 12.5 g/dl (12.0-15.5); LYMPH # 1.4 10^3/uL (1.5-5.0); LYMPH % 28.2 % (24.0-44.0); MEAN CORPUSCULAR HEMOGLOBIN 27.7 pg (27.0-33.0); MEAN CORPUSCULAR HGB CONC 33.2 g/dl (32.0-36.5); MEAN CORPUSCULAR VOLUME 83.4 fl (80.0-96.0); MONO # 0.6 10^3/uL (0.0-0.8); MONO % 13.1 % (2.0-8.0); NEUTROPHILS # 2.6 10^3/uL (1.5-8.5); NEUTROPHILS % 52.4 % (36.0-66.0); PLATELET COUNT, AUTOMATED 270 10^3/uL (150-450); RED BLOOD COUNT 4.52 10^6/uL (4.00-5.40); WHITE BLOOD COUNT 4.9 10^3/uL (4.0-10.0)
[2023-12-30 11:56] LABS: ALBUMIN 3.4 G/DL (3.2-5.2); ALKALINE PHOSPHATASE 76 U/L (46-116); ALT/SGPT 27 U/L (7.0-40); AST/SGOT 21 U/L (<34); BILIRUBIN,TOTAL 0.3 MG/DL (0.3-1.2); BLOOD UREA NITROGEN 20 MG/DL (9-23); CALCIUM LEVEL 8.9 MG/DL (8.3-10.6); CARBON DIOXIDE LEVEL 28 MMOL/L (20-31); CHLORIDE LEVEL 96 MMOL/L (98-107); CREATININE FOR GFR 0.59 MG/DL (0.55-1.30); GLOMERULAR FILTRATION RATE > 60.0 (>39); GLUCOSE, FASTING 109 MG/DL (74-106); POTASSIUM SERUM 3.3 MMOL/L (3.5-5.1); SODIUM LEVEL 133 MMOL/L (136-145); TOTAL PROTEIN 6.4 G/DL (5.7-8.2)
== END ==
LOC: SKLAB4 10:15
PROVIDERS: ATTEND Internal Medicine
DX: Z01.818 Encounter for other preprocedural examination (principal); R94.31 Abnormal electrocardiogram [ECG] [EKG]; R09.02 Hypoxemia; R91.8 Other nonspecific abnormal finding of lung field

== ENCOUNTER → 2023-12-30 | Outpatient (REF) | payer MEDICARE, MEDICAID | LOC: SKLAB4 10:14 | PROVIDERS: ATTEND Internal Medicine | DX: Z01.818 Encounter for other preprocedural examination (principal) ==

== ENCOUNTER → 2024-01-02 | Outpatient (CLI) | payer MEDICARE, MEDICAID | LOC: M RAD 17:09 | PROVIDERS: ATTEND Internal Medicine | DX: M19.011 Primary osteoarthritis, right shoulder (principal) ==

== ENCOUNTER → 2024-01-02 | Outpatient (REF) | payer MEDICARE, MEDICAID | LOC: SKLAB4 15:21 | PROVIDERS: ATTEND Internal Medicine | DX: Z53.8 Procedure and treatment not carried out for other reasons (principal) ==

== ENCOUNTER → 2024-01-02 | Outpatient (REF) | payer MEDICARE, MEDICAID ==
[2024-01-02 12:07] LABS: BLOOD UREA NITROGEN 28 MG/DL (9-23); CALCIUM LEVEL 8.9 MG/DL (8.3-10.6); CARBON DIOXIDE LEVEL 27 MMOL/L (20-31); CHLORIDE LEVEL 97 MMOL/L (98-107); CREATININE FOR GFR 0.58 MG/DL (0.55-1.30); GLOMERULAR FILTRATION RATE > 60.0 (>39); GLUCOSE, FASTING 102 MG/DL (74-106); POTASSIUM SERUM 3.8 MMOL/L (3.5-5.1); SODIUM LEVEL 131 MMOL/L (136-145)
== END ==
LOC: SKLAB4 07:00
PROVIDERS: ATTEND Internal Medicine
DX: E87.6 Hypokalemia (principal)

== ENCOUNTER 2024-01-07 12:29 | Day surgery (SDC) | payer MEDICARE, MEDICAID ==
[~2024-01-07] VITALS: Ht 157.5 cm; Wt 38.1 kg
[~2024-01-07 12:29] MED LIST changes: +NS 1,000 ML IV ONE
[2024-01-07] MEDS ORDERED: fentaNYL 100 MCG/2 ML INJECTION As Ordered ONE (15:38)
[2024-01-07] MEDS ORDERED: propofoL 200 MG/20 ML VIAL As Ordered ONE (15:44)
[2024-01-07] MEDS ORDERED: LIDOCAINE 2% 100MG/5ML SDV (FOR ANES.) As Ordered ONE (15:44)
[2024-01-07 16:45] VITALS: BP 174/72; O2SAT 97
== END 2024-01-07 17:10 | disposition home or self-care (01) ==
LOC: M OPP 12:29
PROVIDERS: ATTEND Surgery
DX: K22.89 Other specified disease of esophagus (principal); K21.00 Gastro-esophageal reflux disease with esophagitis, without bleeding; K29.50 Unspecified chronic gastritis without bleeding; Z43.1 Encounter for attention to gastrostomy; E43 Unspecified severe protein-calorie malnutrition; I25.10 Atherosclerotic heart disease of native coronary artery without angina pectoris; Z86.73 Personal history of transient ischemic attack (TIA), and cerebral infarction without residual deficits; Z79.02 Long term (current) use of antithrombotics/antiplatelets; Z79.1 Long term (current) use of non-steroidal anti-inflammatories (NSAID); Z79.82 Long term (current) use of aspirin; Z79.899 Other long term (current) drug therapy; Z87.891 Personal history of nicotine dependence; Z88.1 Allergy status to other antibiotic agents
CPT/HCPCS: 43246; C1769; J3010

== ENCOUNTER → 2024-01-08 | Outpatient (REF) | payer MEDICARE, MEDICAID ==
[~2024-01-08] MED LIST changes: -NS 1,000 ML IV ONE
[2024-01-08 08:50] LABS: ALBUMIN 3.3 G/DL (3.2-5.2); ALKALINE PHOSPHATASE 67 U/L (46-116); ALT/SGPT 23 U/L (7.0-40); AST/SGOT 8 U/L (<34); BILIRUBIN,TOTAL 0.4 MG/DL (0.3-1.2); BLOOD UREA NITROGEN 21 MG/DL (9-23); CARBON DIOXIDE LEVEL 24 MMOL/L (20-31); CHLORIDE LEVEL 100 MMOL/L (98-107); CREATININE FOR GFR 0.58 MG/DL (0.55-1.30); GLOMERULAR FILTRATION RATE > 60.0 (>39); GLUCOSE, FASTING 92 MG/DL (74-106); MAGNESIUM LEVEL 1.9 MG/DL (1.8-2.4); PHOSPHORUS LEVEL 3.9 MG/DL (2.4-5.1); POTASSIUM SERUM 3.4 MMOL/L (3.5-5.1); SODIUM LEVEL 133 MMOL/L (136-145); TOTAL PROTEIN 5.9 G/DL (5.7-8.2)
== END ==
LOC: SKLAB4 07:05
PROVIDERS: ATTEND Internal Medicine
DX: E46 Unspecified protein-calorie malnutrition (principal)

== ENCOUNTER → 2024-01-10 | Outpatient (REF) | payer MEDICARE, MEDICAID ==
[2024-01-10 07:55] LABS: ALBUMIN 3.1 G/DL (3.2-5.2); ALKALINE PHOSPHATASE 63 U/L (46-116); ALT/SGPT < 9 U/L (7.0-40); AST/SGOT < 8 U/L (<34); BILIRUBIN,TOTAL 0.3 MG/DL (0.3-1.2); BLOOD UREA NITROGEN 24 MG/DL (9-23); CALCIUM LEVEL 8.6 MG/DL (8.3-10.6); CARBON DIOXIDE LEVEL 25 MMOL/L (20-31); CHLORIDE LEVEL 100 MMOL/L (98-107); CREATININE FOR GFR 0.61 MG/DL (0.55-1.30); GLOMERULAR FILTRATION RATE > 60.0 (>39); GLUCOSE, FASTING 98 MG/DL (74-106); MAGNESIUM LEVEL 1.8 MG/DL (1.8-2.4); PHOSPHORUS LEVEL 3.9 MG/DL (2.4-5.1); POTASSIUM SERUM 3.7 MMOL/L (3.5-5.1); SODIUM LEVEL 132 MMOL/L (136-145); TOTAL PROTEIN 5.9 G/DL (5.7-8.2)
== END ==
LOC: SKLAB4 01-09 14:44
PROVIDERS: ATTEND Internal Medicine
DX: E46 Unspecified protein-calorie malnutrition (principal)

== ENCOUNTER → 2024-01-12 | Outpatient (REF) | payer MEDICARE, MEDICAID | LOC: SKLAB4 07:16 | PROVIDERS: ATTEND Internal Medicine | DX: Z53.8 Procedure and treatment not carried out for other reasons (principal) ==

== ENCOUNTER → 2024-01-12 | Outpatient (REF) | payer MEDICARE, MEDICAID ==
[2024-01-12 07:55] LABS: ALBUMIN 3.1 G/DL (3.2-5.2); ALKALINE PHOSPHATASE 69 U/L (46-116); ALT/SGPT 20 U/L (7.0-40); AST/SGOT 10 U/L (<34); BILIRUBIN,TOTAL 0.6 MG/DL (0.3-1.2); BLOOD UREA NITROGEN 26 MG/DL (9-23); CALCIUM LEVEL 8.4 MG/DL (8.3-10.6); CARBON DIOXIDE LEVEL 25 MMOL/L (20-31); CHLORIDE LEVEL 97 MMOL/L (98-107); CREATININE FOR GFR 0.68 MG/DL (0.55-1.30); GLOMERULAR FILTRATION RATE > 60.0 (>39); GLUCOSE, FASTING 102 MG/DL (74-106); PHOSPHORUS LEVEL 3.3 MG/DL (2.4-5.1); POTASSIUM SERUM 3.5 MMOL/L (3.5-5.1); SODIUM LEVEL 131 MMOL/L (136-145); TOTAL PROTEIN 6.1 G/DL (5.7-8.2)
== END ==
LOC: SKLAB4 12-30 07:00
PROVIDERS: ATTEND Internal Medicine
DX: E46 Unspecified protein-calorie malnutrition (principal)

== ENCOUNTER → 2024-01-13 | Outpatient (REF) | payer MEDICARE, MEDICAID ==
[2024-01-13 08:11] LABS: ALBUMIN 3.1 G/DL (3.2-5.2); ALKALINE PHOSPHATASE 84 U/L (46-116); ALT/SGPT 49 U/L (7.0-40); AST/SGOT 42 U/L (<34); BILIRUBIN,TOTAL 0.3 MG/DL (0.3-1.2); BLOOD UREA NITROGEN 29 MG/DL (9-23); CALCIUM LEVEL 8.8 MG/DL (8.3-10.6); CARBON DIOXIDE LEVEL 28 MMOL/L (20-31); CHLORIDE LEVEL 97 MMOL/L (98-107); CREATININE FOR GFR 0.59 MG/DL (0.55-1.30); GLOMERULAR FILTRATION RATE > 60.0 (>39); GLUCOSE, FASTING 126 MG/DL (74-106); MAGNESIUM LEVEL 2.1 MG/DL (1.8-2.4); POTASSIUM SERUM 3.1 MMOL/L (3.5-5.1); SODIUM LEVEL 133 MMOL/L (136-145); TOTAL PROTEIN 6.4 G/DL (5.7-8.2)
== END ==
LOC: SKLAB4 06:45
PROVIDERS: ATTEND Internal Medicine
DX: E46 Unspecified protein-calorie malnutrition (principal)

== ENCOUNTER → 2024-01-14 | Outpatient (REF) | payer MEDICARE, MEDICAID ==
[2024-01-14 12:29] LABS: ALBUMIN 3.1 G/DL (3.2-5.2); ALKALINE PHOSPHATASE 110 U/L (46-116); ALT/SGPT 97 U/L (7.0-40); AST/SGOT 72 U/L (<34); BILIRUBIN,TOTAL 0.3 MG/DL (0.3-1.2); BLOOD UREA NITROGEN 35 MG/DL (9-23); CALCIUM LEVEL 9.2 MG/DL (8.3-10.6); CARBON DIOXIDE LEVEL 27 MMOL/L (20-31); CHLORIDE LEVEL 97 MMOL/L (98-107); CREATININE FOR GFR 0.59 MG/DL (0.55-1.30); GLOMERULAR FILTRATION RATE > 60.0 (>39); GLUCOSE, FASTING 144 MG/DL (74-106); PHOSPHORUS LEVEL 2.5 MG/DL (2.4-5.1); POTASSIUM SERUM 3.8 MMOL/L (3.5-5.1); SODIUM LEVEL 133 MMOL/L (136-145); TOTAL PROTEIN 6.8 G/DL (5.7-8.2)
== END ==
LOC: SKLAB4 07:00
PROVIDERS: ATTEND Internal Medicine
DX: E44.0 Moderate protein-calorie malnutrition (principal)

== ENCOUNTER → 2024-01-15 | Outpatient (REF) | payer MEDICARE, MEDICAID ==
[2024-01-15 09:17] LABS: ALBUMIN 3.1 G/DL (3.2-5.2); ALKALINE PHOSPHATASE 103 U/L (46-116); ALT/SGPT 76 U/L (7.0-40); AST/SGOT 38 U/L (<34); BILIRUBIN,TOTAL 0.4 MG/DL (0.3-1.2); BLOOD UREA NITROGEN 37 MG/DL (9-23); CALCIUM LEVEL 9.3 MG/DL (8.3-10.6); CARBON DIOXIDE LEVEL 25 MMOL/L (20-31); CHLORIDE LEVEL 96 MMOL/L (98-107); CREATININE FOR GFR 0.72 MG/DL (0.55-1.30); GLOMERULAR FILTRATION RATE > 60.0 (>39); GLUCOSE, FASTING 99 MG/DL (74-106); MAGNESIUM LEVEL 1.9 MG/DL (1.8-2.4); PHOSPHORUS LEVEL 3.3 MG/DL (2.4-5.1); POTASSIUM SERUM 3.7 MMOL/L (3.5-5.1); SODIUM LEVEL 132 MMOL/L (136-145); TOTAL PROTEIN 6.6 G/DL (5.7-8.2)
== END ==
LOC: SKLAB4 06:50
PROVIDERS: ATTEND Internal Medicine
DX: E44.0 Moderate protein-calorie malnutrition (principal)

== ENCOUNTER → 2024-01-16 | Outpatient (REF) | payer MEDICARE, MEDICAID ==
[2024-01-16 11:47] LABS: ALBUMIN 2.9 G/DL (3.2-5.2); ALKALINE PHOSPHATASE 94 U/L (46-116); ALT/SGPT 60 U/L (7.0-40); AST/SGOT 24 U/L (<34); BILIRUBIN,TOTAL 0.2 MG/DL (0.3-1.2); BLOOD UREA NITROGEN 41 MG/DL (9-23); CALCIUM LEVEL 8.8 MG/DL (8.3-10.6); CARBON DIOXIDE LEVEL 26 MMOL/L (20-31); CHLORIDE LEVEL 97 MMOL/L (98-107); CREATININE FOR GFR 0.62 MG/DL (0.55-1.30); GLOMERULAR FILTRATION RATE > 60.0 (>39); GLUCOSE, FASTING 105 MG/DL (74-106); MAGNESIUM LEVEL 1.8 MG/DL (1.8-2.4); PHOSPHORUS LEVEL 3.5 MG/DL (2.4-5.1); POTASSIUM SERUM 4.1 MMOL/L (3.5-5.1); SODIUM LEVEL 134 MMOL/L (136-145); TOTAL PROTEIN 6.4 G/DL (5.7-8.2)
== END ==
LOC: SKLAB4 10:36
PROVIDERS: ATTEND Internal Medicine
DX: E44.0 Moderate protein-calorie malnutrition (principal)

== ENCOUNTER → 2024-01-19 | Outpatient (REF) | payer MEDICARE, MEDICAID ==
[2024-01-19 08:43] LABS: ALKALINE PHOSPHATASE 83 U/L (46-116); ALT/SGPT 38 U/L (7.0-40); AST/SGOT 9 U/L (<34); BILIRUBIN,TOTAL < 0.2 MG/DL (0.3-1.2); BLOOD UREA NITROGEN 44 MG/DL (9-23); CALCIUM LEVEL 8.8 MG/DL (8.3-10.6); CARBON DIOXIDE LEVEL 29 MMOL/L (20-31); CHLORIDE LEVEL 99 MMOL/L (98-107); CREATININE FOR GFR 0.57 MG/DL (0.55-1.30); GLOMERULAR FILTRATION RATE > 60.0 (>39); GLUCOSE, FASTING 128 MG/DL (74-106); MAGNESIUM LEVEL 1.6 MG/DL (1.8-2.4); PHOSPHORUS LEVEL 3.7 MG/DL (2.4-5.1); SODIUM LEVEL 135 MMOL/L (136-145); TOTAL PROTEIN 6.3 G/DL (5.7-8.2)
== END ==
LOC: SKLAB4 07:19
PROVIDERS: ATTEND Internal Medicine
DX: E46 Unspecified protein-calorie malnutrition (principal)

== ENCOUNTER → 2024-01-19 | Outpatient (REF) | payer MEDICARE, MEDICAID | LOC: SKLAB4 14:33 | PROVIDERS: ATTEND Internal Medicine | DX: Z53.8 Procedure and treatment not carried out for other reasons (principal) ==

== ENCOUNTER → 2024-01-20 | Outpatient (REF) | payer MEDICARE, MEDICAID ==
[2024-01-20 11:13] LABS: ALBUMIN 3.1 G/DL (3.2-5.2); ALKALINE PHOSPHATASE 77 U/L (46-116); ALT/SGPT 33 U/L (7.0-40); AST/SGOT 9 U/L (<34); BILIRUBIN,TOTAL < 0.2 MG/DL (0.3-1.2); BLOOD UREA NITROGEN 36 MG/DL (9-23); CARBON DIOXIDE LEVEL 26 MMOL/L (20-31); CHLORIDE LEVEL 98 MMOL/L (98-107); CREATININE FOR GFR 0.53 MG/DL (0.55-1.30); GLOMERULAR FILTRATION RATE > 60.0 (>39); GLUCOSE, FASTING 111 MG/DL (74-106); MAGNESIUM LEVEL 1.8 MG/DL (1.8-2.4); POTASSIUM SERUM 4.1 MMOL/L (3.5-5.1); SODIUM LEVEL 133 MMOL/L (136-145); TOTAL PROTEIN 6.4 G/DL (5.7-8.2)
== END ==
LOC: SKLAB4 07:10
PROVIDERS: ATTEND Internal Medicine
DX: E46 Unspecified protein-calorie malnutrition (principal)

== ENCOUNTER → 2024-01-21 | Outpatient (REF) | payer MEDICARE, MEDICAID ==
[2024-01-21 09:29] LABS: ALBUMIN 3.4 G/DL (3.2-5.2); ALKALINE PHOSPHATASE 85 U/L (46-116); ALT/SGPT 33 U/L (7.0-40); AST/SGOT 10 U/L (<34); BILIRUBIN,TOTAL 0.2 MG/DL (0.3-1.2); BLOOD UREA NITROGEN 37 MG/DL (9-23); CALCIUM LEVEL 9.3 MG/DL (8.3-10.6); CARBON DIOXIDE LEVEL 28 MMOL/L (20-31); CHLORIDE LEVEL 99 MMOL/L (98-107); CREATININE FOR GFR 0.56 MG/DL (0.55-1.30); GLOMERULAR FILTRATION RATE > 60.0 (>39); GLUCOSE, FASTING 110 MG/DL (74-106); MAGNESIUM LEVEL 1.7 MG/DL (1.8-2.4); PHOSPHORUS LEVEL 3.8 MG/DL (2.4-5.1); SODIUM LEVEL 135 MMOL/L (136-145); TOTAL PROTEIN 6.8 G/DL (5.7-8.2)
== END ==
LOC: SKLAB6 06:52
PROVIDERS: ATTEND Internal Medicine
DX: E46 Unspecified protein-calorie malnutrition (principal)

== ENCOUNTER → 2024-01-22 | Outpatient (REF) | payer MEDICARE, MEDICAID ==
[2024-01-22 14:21] LABS: ALBUMIN 3.4 G/DL (3.2-5.2); ALKALINE PHOSPHATASE 77 U/L (46-116); ALT/SGPT 30 U/L (7.0-40); AST/SGOT 11 U/L (<34); BILIRUBIN,TOTAL 0.2 MG/DL (0.3-1.2); BLOOD UREA NITROGEN 33 MG/DL (9-23); CALCIUM LEVEL 9.2 MG/DL (8.3-10.6); CARBON DIOXIDE LEVEL 26 MMOL/L (20-31); CHLORIDE LEVEL 97 MMOL/L (98-107); CREATININE FOR GFR 0.54 MG/DL (0.55-1.30); GLOMERULAR FILTRATION RATE > 60.0 (>39); GLUCOSE, FASTING 98 MG/DL (74-106); MAGNESIUM LEVEL 1.8 MG/DL (1.8-2.4); PHOSPHORUS LEVEL 4.2 MG/DL (2.4-5.1); POTASSIUM SERUM 4.1 MMOL/L (3.5-5.1); SODIUM LEVEL 133 MMOL/L (136-145); TOTAL PROTEIN 6.7 G/DL (5.7-8.2)
== END ==
LOC: SKLAB4 08:49
PROVIDERS: ATTEND Internal Medicine
DX: E46 Unspecified protein-calorie malnutrition (principal)

== ENCOUNTER → 2024-02-10 | Outpatient (REF) | payer MEDICARE, MEDICAID ==
[~2024-02-10] MED LIST changes: +ONDA-83; +POTA20LI16 GT; +SUCR1TAB56 PO; +TREL1AER IN
[2024-02-10 09:56] LABS: HEMATOCRIT 32.7 % (36.0-47.0); HEMOGLOBIN 10.6 g/dl (12.0-15.5); MEAN CORPUSCULAR HEMOGLOBIN 28.7 pg (27.0-33.0); MEAN CORPUSCULAR HGB CONC 32.4 g/dl (32.0-36.5); MEAN CORPUSCULAR VOLUME 88.6 fl (80.0-96.0); PLATELET COUNT, AUTOMATED 232 10^3/uL (150-450); RED BLOOD COUNT 3.69 10^6/uL (4.00-5.40); WHITE BLOOD COUNT 9.1 10^3/uL (4.0-10.0)
[2024-02-10 10:30] LABS: ALBUMIN 3.8 G/DL (3.2-5.2); ALKALINE PHOSPHATASE 84 U/L (46-116); ALT/SGPT 19 U/L (7.0-40); AST/SGOT 9 U/L (<34); BILIRUBIN,TOTAL 0.2 MG/DL (0.3-1.2); BLOOD UREA NITROGEN 32 MG/DL (9-23); CALCIUM LEVEL 8.9 MG/DL (8.3-10.6); CARBON DIOXIDE LEVEL 30 MMOL/L (20-31); CHLORIDE LEVEL 95 MMOL/L (98-107); CREATININE FOR GFR 0.61 MG/DL (0.55-1.30); GLOMERULAR FILTRATION RATE > 60.0 (>39); GLUCOSE, FASTING 108 MG/DL (74-106); POTASSIUM SERUM 3.3 MMOL/L (3.5-5.1); SODIUM LEVEL 134 MMOL/L (136-145)
== END ==
LOC: SKLAB4 08:18
PROVIDERS: ATTEND Internal Medicine
DX: Z01.818 Encounter for other preprocedural examination (principal); H26.9 Unspecified cataract

== ENCOUNTER 2024-02-19 10:46 | Day surgery (SDC) | payer MEDICARE, MEDICAID ==
[~2024-02-19] VITALS: Ht 157.5 cm; Wt 40.1 kg
[~2024-02-19 10:46] MED LIST changes: +ATROPINE SULFATE 1% OPHTH SOLN 2ML BTL OS SCH; +LIDOCAINE 3.5 % 1ML OPHTH TOPICAL GEL OU ONE; +OFLOXACIN 0.3 % (OCUFLOX) OPTH SOL 5ML OS ONE; +PHENYLEPHRINE 10% OPHTH SOL 5ML OS PRN; +PHENYLEPHRINE 2.5% OPHTH SOL 2ML OS SCH; -POTA20LI16 GT; +TROPICAMIDE 1% OPHTH SOLN 15ML OS SCH
[2024-02-19] MEDS ORDERED: MIDAZOLAM INJ 2MG/2ML VIAL As Ordered ONE (13:42)
[2024-02-19] MEDS ORDERED: fentaNYL 100 MCG/2 ML INJECTION As Ordered ONE (13:46)
[2024-02-19] MEDS: TRYPAN BLUE 0.06 % 2.25 ML OPHTH SYR (VISIONBLUE) As Ordered ONE (13:48)
[2024-02-19] MEDS: LIDOCAINE 1% SDV 5ML VIAL As Ordered ONE (13:48)
[2024-02-19] MEDS: BSS IRRIG/VANCO(10MG)/TOBRA(5MG)/EPINEPH(1:1000-0.5CC)500ML BAG-ORONLY As Ordered ONE (13:48)
[2024-02-19] MEDS: MOXIFLOXACIN 0.6MG/0.4ML INTRAOCULAR SYRINGE As Ordered ONE (13:48)
[2024-02-19] MEDS: VISCOAT 40-30MG/ML 0.5ML SYRINGE As Ordered ONE (13:49)
[2024-02-19 14:00] VITALS: BP 99/55; TEMP 96.7; O2SAT 95
== END 2024-02-19 14:27 | disposition home or self-care (01) ==
LOC: M SDC 10:46
PROVIDERS: ATTEND Ophthalmology
DX: H25.89 Other age-related cataract (principal); I25.10 Atherosclerotic heart disease of native coronary artery without angina pectoris; I10 Essential (primary) hypertension; D64.9 Anemia, unspecified; K21.9 Gastro-esophageal reflux disease without esophagitis; J44.9 Chronic obstructive pulmonary disease, unspecified; Z86.73 Personal history of transient ischemic attack (TIA), and cerebral infarction without residual deficits; M19.90 Unspecified osteoarthritis, unspecified site; Z98.41 Cataract extraction status, right eye; Z88.1 Allergy status to other antibiotic agents; Z79.899 Other long term (current) drug therapy; Z79.02 Long term (current) use of antithrombotics/antiplatelets; Z79.82 Long term (current) use of aspirin; Z79.891 Long term (current) use of opiate analgesic
CPT/HCPCS: 66982; A4649; J2250; J3010; V2632

== ENCOUNTER 2024-02-20 21:53 | Emergency (ER) | payer MEDICARE, MEDICAID ==
[~2024-02-20] VITALS: Ht 162.6 cm; Wt 43.7 kg
[~2024-02-20 21:53] MED LIST changes: -ATROPINE SULFATE 1% OPHTH SOLN 2ML BTL OS SCH; -LIDOCAINE 3.5 % 1ML OPHTH TOPICAL GEL OU ONE; -OFLOXACIN 0.3 % (OCUFLOX) OPTH SOL 5ML OS ONE; -PHENYLEPHRINE 10% OPHTH SOL 5ML OS PRN; -PHENYLEPHRINE 2.5% OPHTH SOL 2ML OS SCH; -TROPICAMIDE 1% OPHTH SOLN 15ML OS SCH
[2024-02-20 22:01] VITALS: TEMP 97.8
[2024-02-20 23:02] LABS: BASO % 0.1 % (0.0-1.0); EOS % 0.1 % (0.0-3.0); HEMATOCRIT 26.2 % (36.0-47.0); HEMOGLOBIN 8.6 g/dl (12.0-15.5); LYMPH # 1.4 10^3/uL (1.5-5.0); LYMPH % 7.8 % (24.0-44.0); MEAN CORPUSCULAR HEMOGLOBIN 29.6 pg (27.0-33.0); MEAN CORPUSCULAR HGB CONC 32.8 g/dl (32.0-36.5); MONO # 1.5 10^3/uL (0.0-0.8); MONO % 8.6 % (2.0-8.0); NEUTROPHILS # 14.2 10^3/uL (1.5-8.5); NEUTROPHILS % 80.6 % (36.0-66.0); PLATELET COUNT, AUTOMATED 268 10^3/uL (150-450); RED BLOOD COUNT 2.91 10^6/uL (4.00-5.40); WHITE BLOOD COUNT 17.6 10^3/uL (4.0-10.0)
[2024-02-20] MEDS: GASTROGRAFIN SOLUTION 30ML PO ONE (23:15)
[2024-02-20 23:35] LABS: BLOOD UREA NITROGEN 50 MG/DL (9-23); CALCIUM LEVEL 8.7 MG/DL (8.3-10.6); CARBON DIOXIDE LEVEL 30 MMOL/L (20-31); CHLORIDE LEVEL 96 MMOL/L (98-107); CREATININE FOR GFR 0.69 MG/DL (0.55-1.30); GLOMERULAR FILTRATION RATE > 60.0 (>39); GLUCOSE, FASTING 111 MG/DL (74-106); MAGNESIUM LEVEL 2.1 MG/DL (1.8-2.4); POTASSIUM SERUM 2.7 MMOL/L (3.5-5.1); SODIUM LEVEL 134 MMOL/L (136-145)
[2024-02-21] MEDS ORDERED: ISOVUE-370 76% 100ML VIAL As Ordered ONE (02:02)
[2024-02-21] MEDS: POTASSIUM CHLORIDE 10% LIQ 20MEQ/15ML UDC GT ONE ×2 (02:25→02:26)
[2024-02-21 03:00] VITALS: BP 157/71; O2SAT 97
[2024-02-21] MEDS ORDERED: POTA20LI16 GT (03:28)
== END 2024-02-21 03:49 | disposition home or self-care (01) ==
LOC: M ED 21:53 → EDBD 21:53 → M ED 02-21 03:49
DX: K94.23 Gastrostomy malfunction (principal); E87.6 Hypokalemia; D72.829 Elevated white blood cell count, unspecified; R94.31 Abnormal electrocardiogram [ECG] [EKG]; K21.9 Gastro-esophageal reflux disease without esophagitis; J44.9 Chronic obstructive pulmonary disease, unspecified; I10 Essential (primary) hypertension; E78.5 Hyperlipidemia, unspecified; Z88.8 Allergy status to other drugs, medicaments and biological substances; Z79.1 Long term (current) use of non-steroidal anti-inflammatories (NSAID); Z79.899 Other long term (current) drug therapy
CPT/HCPCS: 36415; 51701; 71045; 71250; 74018; 74176; 80048; 81001; 83735; 85025; 93005; 99284; Q9967

== ENCOUNTER → 2024-02-23 | Outpatient (REF) | payer MEDICARE, MEDICAID ==
[~2024-02-23] MED LIST changes: +POTA20LI16 GT
== END ==
LOC: SKLAB4 12:50
PROVIDERS: ATTEND Internal Medicine
DX: E78.5 Hyperlipidemia, unspecified (principal); Z53.8 Procedure and treatment not carried out for other reasons

== ENCOUNTER → 2024-02-23 | Outpatient (REF) | payer MEDICARE, MEDICAID ==
[2024-02-23 12:32] LABS: HEMOGLOBIN 7.2 g/dl (12.0-15.5); MEAN CORPUSCULAR HEMOGLOBIN 29.6 pg (27.0-33.0); MEAN CORPUSCULAR HGB CONC 32.7 g/dl (32.0-36.5); MEAN CORPUSCULAR VOLUME 90.5 fl (80.0-96.0); PLATELET COUNT, AUTOMATED 306 10^3/uL (150-450); RED BLOOD COUNT 2.43 10^6/uL (4.00-5.40); WHITE BLOOD COUNT 13.3 10^3/uL (4.0-10.0)
[2024-02-23 13:06] LABS: BLOOD UREA NITROGEN 29 MG/DL (9-23); CALCIUM LEVEL 8.4 MG/DL (8.3-10.6); CARBON DIOXIDE LEVEL 29 MMOL/L (20-31); CHLORIDE LEVEL 95 MMOL/L (98-107); CREATININE FOR GFR 0.54 MG/DL (0.55-1.30); GLOMERULAR FILTRATION RATE > 60.0 (>39); GLUCOSE, FASTING 110 MG/DL (74-106); POTASSIUM SERUM 3.5 MMOL/L (3.5-5.1); SODIUM LEVEL 133 MMOL/L (136-145)
[2024-02-23 13:21] LABS: CHOLESTEROL LEVEL 102 MG/DL (<200); CHOLESTEROL RISK RATIO 2.38 (<5); HDL CHOLESTEROL 42.8 MG/DL (>40); LDL CHOLESTEROL 42.8 MG/DL (<100); NON-HDL-C 59.2 MG/DL; TRIGLYCERIDES LEVEL 82 MG/DL (<150)
== END ==
LOC: SKLAB4 11:15
PROVIDERS: ATTEND Internal Medicine
DX: D72.829 Elevated white blood cell count, unspecified (principal); D64.9 Anemia, unspecified; E87.6 Hypokalemia

== ENCOUNTER → 2024-02-23 | Outpatient (REF) | payer MEDICARE, MEDICAID | LOC: SKLAB4 15:05 | PROVIDERS: ATTEND Internal Medicine | DX: D72.829 Elevated white blood cell count, unspecified (principal); D64.9 Anemia, unspecified; E87.6 Hypokalemia; Z79.899 Other long term (current) drug therapy ==

== ENCOUNTER 2024-02-24 15:05 | Emergency (ER) | payer MEDICARE, MEDICAID ==
[~2024-02-24] VITALS: Ht 157.5 cm; Wt 44.1 kg
[2024-02-24] MEDS: ACETAMINOPHEN TAB 650MG DOSE (2X325MG) PO ONE (18:20)
[2024-02-24 18:50] VITALS: BP 101/52; TEMP 97.5; O2SAT 98
== END 2024-02-24 18:55 | disposition home or self-care (01) ==
LOC: EDBD 15:05 → M ED 15:05
DX: S01.01XA Laceration without foreign body of scalp, initial encounter (principal); Y92.9 Unspecified place or not applicable; Y93.9 Activity, unspecified; Y99.9 Unspecified external cause status; I48.91 Unspecified atrial fibrillation; I10 Essential (primary) hypertension; E78.5 Hyperlipidemia, unspecified; J44.9 Chronic obstructive pulmonary disease, unspecified; K21.9 Gastro-esophageal reflux disease without esophagitis; Z88.1 Allergy status to other antibiotic agents; Z79.1 Long term (current) use of non-steroidal anti-inflammatories (NSAID); Z79.899 Other long term (current) drug therapy

== ENCOUNTER → 2024-02-25 | Outpatient (CLI) | payer MEDICARE, MEDICAID ==
[2024-02-25] VITALS (7 sets, daily range): BP systolic 130–159; BP diastolic 60–105; TEMP 97.8–98.4; O2SAT 95–100
[2024-02-25] MEDS: FUROSEMIDE 40MG/4ML VIAL IV ONE (10:47)
== END ==
LOC: M INFU 07:52
PROVIDERS: ATTEND Nurse Practitioner Adult Health
DX: D64.9 Anemia, unspecified (principal); Z88.8 Allergy status to other drugs, medicaments and biological substances
CPT/HCPCS: 36430; 96374; J1940; P9016

== ENCOUNTER → 2024-02-26 | Outpatient (REF) | payer MEDICARE, MEDICAID | LOC: SKLAB4 14:00 | PROVIDERS: ATTEND Internal Medicine | DX: Z53.8 Procedure and treatment not carried out for other reasons (principal) ==

== ENCOUNTER → 2024-02-27 | Outpatient (REF) | payer MEDICARE, MEDICAID ==
[2024-02-27 12:11] LABS: ALBUMIN 3.4 G/DL (3.2-5.2); ALKALINE PHOSPHATASE 81 U/L (46-116); ALT/SGPT 21 U/L (7.0-40); AST/SGOT 10 U/L (<34); BILIRUBIN,TOTAL 0.5 MG/DL (0.3-1.2); BLOOD UREA NITROGEN 28 MG/DL (9-23); CALCIUM LEVEL 8.8 MG/DL (8.3-10.6); CARBON DIOXIDE LEVEL 34 MMOL/L (20-31); CHLORIDE LEVEL 92 MMOL/L (98-107); CREATININE FOR GFR 0.73 MG/DL (0.55-1.30); GLOMERULAR FILTRATION RATE > 60.0 (>39); GLUCOSE, FASTING 84 MG/DL (74-106); MAGNESIUM LEVEL 2.1 MG/DL (1.8-2.4); PHOSPHORUS LEVEL 4.1 MG/DL (2.4-5.1); SODIUM LEVEL 132 MMOL/L (136-145); TOTAL PROTEIN 6.3 G/DL (5.7-8.2)
== END ==
LOC: SKLAB4 02-26 10:00
PROVIDERS: ATTEND Internal Medicine
DX: E46 Unspecified protein-calorie malnutrition (principal)

== ENCOUNTER → 2024-02-27 | Outpatient (REF) | payer MEDICARE, MEDICAID | LOC: SKLAB4 15:32 | PROVIDERS: ATTEND Internal Medicine | DX: Z53.8 Procedure and treatment not carried out for other reasons (principal) ==

== ENCOUNTER → 2024-02-28 | Outpatient (REF) | payer MEDICARE, MEDICAID | LOC: M LAB 07:05 | PROVIDERS: ATTEND Internal Medicine | DX: R71.0 Precipitous drop in hematocrit (principal) ==

== ENCOUNTER → 2024-02-28 | Outpatient (REF) | LOC: SKLAB4 18:30 | PROVIDERS: ATTEND Internal Medicine | DX: R19.5 Other fecal abnormalities (principal) ==

== ENCOUNTER → 2024-02-28 | Outpatient (REF) ==
[2024-02-28 18:20] LABS: HEMATOCRIT 36.3 % (36.0-47.0); HEMOGLOBIN 11.9 g/dl (12.0-15.5); MEAN CORPUSCULAR HEMOGLOBIN 28.8 pg (27.0-33.0); MEAN CORPUSCULAR HGB CONC 32.8 g/dl (32.0-36.5); MEAN CORPUSCULAR VOLUME 87.9 fl (80.0-96.0); PLATELET COUNT, AUTOMATED 313 10^3/uL (150-450); RED BLOOD COUNT 4.13 10^6/uL (4.00-5.40); WHITE BLOOD COUNT 6.6 10^3/uL (4.0-10.0)
== END ==
LOC: SKLAB4 16:45
PROVIDERS: ATTEND Internal Medicine
DX: R19.5 Other fecal abnormalities (principal)

== ENCOUNTER → 2024-03-01 | Outpatient (REF) | payer MEDICARE, MEDICAID ==
[2024-03-01 10:34] LABS: BLOOD UREA NITROGEN 27 MG/DL (9-23); CALCIUM LEVEL 8.9 MG/DL (8.3-10.6); CARBON DIOXIDE LEVEL 30 MMOL/L (20-31); CHLORIDE LEVEL 97 MMOL/L (98-107); CREATININE FOR GFR 0.65 MG/DL (0.55-1.30); GLOMERULAR FILTRATION RATE > 60.0 (>39); GLUCOSE, FASTING 94 MG/DL (74-106); POTASSIUM SERUM 3.9 MMOL/L (3.5-5.1); SODIUM LEVEL 133 MMOL/L (136-145)
== END ==
LOC: SKLAB4 08:56
PROVIDERS: ATTEND Internal Medicine
DX: E87.6 Hypokalemia (principal)

== ENCOUNTER → 2024-03-04 | Outpatient (REF) | payer MEDICARE, MEDICAID ==
[2024-03-04 10:13] LABS: HEMATOCRIT 37.9 % (36.0-47.0); HEMOGLOBIN 12.3 g/dl (12.0-15.5); MEAN CORPUSCULAR HEMOGLOBIN 29.2 pg (27.0-33.0); MEAN CORPUSCULAR HGB CONC 32.5 g/dl (32.0-36.5); PLATELET COUNT, AUTOMATED 264 10^3/uL (150-450); RED BLOOD COUNT 4.21 10^6/uL (4.00-5.40); WHITE BLOOD COUNT 5.2 10^3/uL (4.0-10.0)
[2024-03-04 10:35] LABS: IRON (FE) 84 UG/DL (50-170)
[2024-03-04 10:50] LABS: BLOOD UREA NITROGEN 27 MG/DL (9-23); CARBON DIOXIDE LEVEL 30 MMOL/L (20-31); CHLORIDE LEVEL 94 MMOL/L (98-107); GLOMERULAR FILTRATION RATE > 60.0 (>39); GLUCOSE, FASTING 87 MG/DL (74-106); POTASSIUM SERUM 3.3 MMOL/L (3.5-5.1); SODIUM LEVEL 132 MMOL/L (136-145)
== END ==
LOC: SKLAB4 09:30
PROVIDERS: ATTEND Internal Medicine
DX: D64.9 Anemia, unspecified (principal); E87.6 Hypokalemia

== ENCOUNTER → 2024-03-11 | Outpatient (REF) | payer MEDICAID, MEDICARE ==
[2024-03-11 10:08] LABS: HEMATOCRIT 33.7 % (36.0-47.0); HEMOGLOBIN 11.1 g/dl (12.0-15.5); MEAN CORPUSCULAR HEMOGLOBIN 29.5 pg (27.0-33.0); MEAN CORPUSCULAR HGB CONC 32.9 g/dl (32.0-36.5); MEAN CORPUSCULAR VOLUME 89.6 fl (80.0-96.0); PLATELET COUNT, AUTOMATED 208 10^3/uL (150-450); RED BLOOD COUNT 3.76 10^6/uL (4.00-5.40); WHITE BLOOD COUNT 5.6 10^3/uL (4.0-10.0)
[2024-03-11 10:29] LABS: BLOOD UREA NITROGEN 30 MG/DL (9-23); CALCIUM LEVEL 8.6 MG/DL (8.3-10.6); CARBON DIOXIDE LEVEL 28 MMOL/L (20-31); CHLORIDE LEVEL 96 MMOL/L (98-107); CREATININE FOR GFR 0.69 MG/DL (0.55-1.30); GLOMERULAR FILTRATION RATE > 60.0 (>39); GLUCOSE, FASTING 110 MG/DL (74-106); POTASSIUM SERUM 3.3 MMOL/L (3.5-5.1); SODIUM LEVEL 133 MMOL/L (136-145)
== END ==
LOC: SKLAB4 08:21
PROVIDERS: ATTEND Internal Medicine
DX: D64.9 Anemia, unspecified (principal)

== ENCOUNTER → 2024-03-24 | Outpatient (REF) | payer MEDICARE, MEDICAID ==
[~2024-03-24] MED LIST changes: +AMOX500T2 PO; +BACIOIN5 TOP; +GUAI100S51 PO; +JUVEPOW4 PO; +MOLN200C PO; -ONDA-83; +ONDA-83 PO; +POTA10CA70 PO; -TREL1AER IN
[2024-03-24 14:22] LABS: AMORPHOUS SEDIMENT SMALL (NEGATIVE); APPEARANCE, URINE HAZY (CLEAR); BACTERIA, URINE AUTO NEGATIVE (NEGATIVE); BILIRUBIN, URINE AUTO NEGATIVE (NEGATIVE); BLOOD, URINE BLOOD NEGATIVE (NEGATIVE); COLOR, URINE YELLOW (YELLOW); GLUCOSE, URINE (UA) AUTO NEGATIVE (NEGATIVE); KETONE, URINE AUTO NEGATIVE (NEGATIVE); LEUKOCYTE ESTERASE, URINE AUTO NEGATIVE (NEGATIVE); NITRITE, URINE AUTO NEGATIVE (NEGATIVE); PROTEIN, URINE AUTO 2+ mg/dL (NEGATIVE); RBC, URINE AUTO 2 /HPF (0-3); SPECIFIC GRAVITY URINE AUTO 1.021 (1.002-1.035); SQUAMOUS EPITHELIAL CELL UR AU 0 /HPF (0-6); UROBILINOGEN, URINE AUTO 0.2 mg/dL (0.0-2.0); WBC, URINE AUTO 3 /HPF (0-3)
== END ==
LOC: SKLAB4 11:32
PROVIDERS: ATTEND Internal Medicine
DX: D72.829 Elevated white blood cell count, unspecified (principal); R41.82 Altered mental status, unspecified

== ENCOUNTER → 2024-03-24 | Outpatient (REF) | payer MEDICARE, MEDICAID ==
[2024-03-24 09:36] LABS: HEMATOCRIT 32.2 % (36.0-47.0); HEMOGLOBIN 10.7 g/dl (12.0-15.5); MEAN CORPUSCULAR HEMOGLOBIN 29.2 pg (27.0-33.0); MEAN CORPUSCULAR HGB CONC 33.2 g/dl (32.0-36.5); PLATELET COUNT, AUTOMATED 244 10^3/uL (150-450); RED BLOOD COUNT 3.66 10^6/uL (4.00-5.40); WHITE BLOOD COUNT 15.4 10^3/uL (4.0-10.0)
[2024-03-24 10:04] LABS: BLOOD UREA NITROGEN 40 MG/DL (9-23); CARBON DIOXIDE LEVEL 27 MMOL/L (20-31); CHLORIDE LEVEL 96 MMOL/L (98-107); GLOMERULAR FILTRATION RATE > 60.0 (>39); GLUCOSE, FASTING 131 MG/DL (74-106); POTASSIUM SERUM 3.4 MMOL/L (3.5-5.1); SODIUM LEVEL 133 MMOL/L (136-145)
== END ==
LOC: SKLAB4 08:26
PROVIDERS: ATTEND Internal Medicine
DX: U07.1 COVID-19 (principal); D64.9 Anemia, unspecified; D72.829 Elevated white blood cell count, unspecified; R41.82 Altered mental status, unspecified

== ENCOUNTER 2024-03-26 11:29 | Inpatient (IN) | payer MEDICAID, MEDICARE ==
[~2024-03-26] VITALS: Ht 157.5 cm; Wt 40.9 kg
[~2024-03-26 11:29] MED LIST changes: -AMOX500T2 PO; -BACIOIN5 TOP; -GUAI100S51 PO; -JUVEPOW4 PO; -MOLN200C PO; -POTA10CA70 PO
[2024-03-26 12:15] LABS: BASO % 0.2 % (0.0-1.0); EOS % 0.1 % (0.0-3.0); HEMATOCRIT 34.4 % (36.0-47.0); HEMOGLOBIN 11.4 g/dl (12.0-15.5); LYMPH # 0.7 10^3/uL (1.5-5.0); MEAN CORPUSCULAR HEMOGLOBIN 28.7 pg (27.0-33.0); MEAN CORPUSCULAR HGB CONC 33.1 g/dl (32.0-36.5); MEAN CORPUSCULAR VOLUME 86.6 fl (80.0-96.0); MONO % 11.3 % (2.0-8.0); NEUTROPHILS # 19.1 10^3/uL (1.5-8.5); NEUTROPHILS % 81.8 % (36.0-66.0); PLATELET COUNT, AUTOMATED 341 10^3/uL (150-450); RED BLOOD COUNT 3.97 10^6/uL (4.00-5.40); WHITE BLOOD COUNT 23.4 10^3/uL (4.0-10.0)
[2024-03-26 12:26] LABS: INR 1.21; PARTIAL THROMBOPLASTIN TIME 41.1 SECONDS (24.8-34.2); PROTHROMBIN TIME 14.9 SECONDS (12.5-14.5)
[2024-03-26 12:38] LABS: CK-MB VALUE MASS < 1.0 NG/ML (<3.6)
[2024-03-26 12:41] LABS: ALBUMIN 2.8 G/DL (3.2-5.2); ALKALINE PHOSPHATASE 133 U/L (46-116); ALT/SGPT 70 U/L (7.0-40); AST/SGOT 46 U/L (<34); BILIRUBIN,DIRECT 0.2 MG/DL (<0.4); BILIRUBIN,TOTAL 0.4 MG/DL (0.3-1.2); BLOOD UREA NITROGEN 35 MG/DL (9-23); CALCIUM LEVEL 8.7 MG/DL (8.3-10.6); CARBON DIOXIDE LEVEL 25 MMOL/L (20-31); CHLORIDE LEVEL 97 MMOL/L (98-107); CPK CREATINE PHOSPHOKINASE 128 U/L (34-145); CREATININE FOR GFR 0.85 MG/DL (0.55-1.30); GLOMERULAR FILTRATION RATE > 60.0 (>39); GLUCOSE, FASTING 145 MG/DL (74-106); MB/CK RELATIVE INDEX 0.78 (< OR =4); POTASSIUM SERUM 3.2 MMOL/L (3.5-5.1); SODIUM LEVEL 134 MMOL/L (136-145); TOTAL PROTEIN 7.4 G/DL (5.7-8.2)
[2024-03-26 12:43] LABS: THYROID STIMULATING HORMONE 1.109 uIU/ML (0.55-4.78)
[2024-03-26 12:44] LABS: FREE T4 1.61 NG/DL (0.89-1.76)
[2024-03-26 12:47] LABS: MONO # 2.6 10^3/uL (0.0-0.8)
[2024-03-26] MEDS: IPRATROPIUM 0.5MG/ALBUTEROL 2.5MG INH SOL UD 3ML (DUONEB) NEB PRN (12:48)
[2024-03-26 12:49] LABS: LIPASE 46 U/L (12-53)
[2024-03-26 13:16] LABS: ABG BASE EXCESS 0.8 (-2.0-2.0); ABG HCO3 23.4 MMOL/L (22.0-26.0); ABG PARTIAL PRESSURE CO2 31.3 mmHg (35.0-45.0); ABG STANDARD HCO3 25.2 MMOL/L. (22.0-26.0); ABG TOTAL CO2 24.3 MMOL/L (23.0-31.0); ABG pH (ARTERIAL) 7.491 UNITS (7.350-7.450)
[2024-03-26] MEDS ORDERED: ISOVUE-370 76% 100ML VIAL As Ordered ONE (13:17)
[2024-03-26] MEDS: methylPREDNISolone 125MG 2ML VIAL IV ONE (13:45)
[2024-03-26] MEDS: POTASSIUM CHLORIDE 10% LIQ 20MEQ/15ML UDC FT ONE (13:46)
[2024-03-26 14:19] LABS: CK-MB VALUE MASS < 1.0 NG/ML (<3.6)
[2024-03-26 14:22] LABS: CPK CREATINE PHOSPHOKINASE 128 U/L (34-145); MB/CK RELATIVE INDEX 0.78 (< OR =4)
[2024-03-26] MEDS: LevoFLOXacin IV 750 MG in IV 1 EA IV ONE (14:23)
[2024-03-26] MEDS: ONDANSETRON 4MG 2ML VIAL IV ONE (15:22)
[2024-03-26] MEDS ORDERED: NS 1,000 ML IV SCH (16:15)
[2024-03-26] MEDS ORDERED: POTASSIUM CHLORIDE INJ 40 MEQ in NS 1,000 ML IV SCH (16:50)
[2024-03-26] MEDS ORDERED: MOLN200C PO (17:15)
[2024-03-26] MEDS ORDERED: AMOX500T2 PO (17:15)
[2024-03-26] MEDS ORDERED: JUVEPOW4 PO (17:15)
[2024-03-26] MEDS ORDERED: BACIOIN5 TOP (17:15)
[2024-03-26] MEDS ORDERED: CARA1TAB6 PO (17:15)
[2024-03-26] MEDS ORDERED: POTA10CA70 PO (17:15)
[2024-03-26] MEDS ORDERED: GUAI100S51 PO (17:23)
[2024-03-26] MEDS ORDERED: HOME MED LIST COMPLETE! XX SCH (17:25)
[2024-03-26] MEDS: KCL 40MEQ in NS 1000ML 1,000 ML IV SCH (18:32)
[2024-03-26] MEDS: PIPERACILLIN/TAZOBACTAM SOD 3.375 GM in D5W MINI-BAG PLUS 50 ML IV SCH (20:20)
[2024-03-26] MEDS: TOPIRAMATE (TopAMAX) 25 MG TAB PO SCH (21:00)
[2024-03-26] MEDS: CLOPIDOGREL 75 MG TAB PO SCH (21:00)
[2024-03-26] MEDS: SYMBICORT 160/4.5MCG INHALER 6GM INH SCH (21:08)
[2024-03-26] MEDS: IPRATROPIUM 0.5MG/ALBUTEROL 2.5MG INH SOL UD 3ML (DUONEB) NEB SCH (21:08)
[2024-03-26 22:00] VITALS: BP 152/65; TEMP 97.1
[2024-03-26] MEDS: PANTOPRAZOLE 40MG VIAL IV SCH (22:50)
[2024-03-27] VITALS: BP 137/65; TEMP 97; O2SAT 96
[2024-03-27] MEDS: ONDANSETRON 4MG 2ML VIAL IV ONE (02:34)
[2024-03-27 03:59] VITALS: BP 152/67; TEMP 97.2; O2SAT 99
[2024-03-27 04:00] VITALS: BP 152/67; TEMP 97.2; O2SAT 99
[2024-03-27 04:44] LABS: BASO % 0.2 % (0.0-1.0); HEMOGLOBIN 10.1 g/dl (12.0-15.5); LYMPH # 0.5 10^3/uL (1.5-5.0); LYMPH % 3.9 % (24.0-44.0); MEAN CORPUSCULAR HEMOGLOBIN 29.3 pg (27.0-33.0); MEAN CORPUSCULAR HGB CONC 33.7 g/dl (32.0-36.5); MONO # 0.2 10^3/uL (0.0-0.8); MONO % 1.7 % (2.0-8.0); NEUTROPHILS # 11.2 10^3/uL (1.5-8.5); NEUTROPHILS % 91.3 % (36.0-66.0); PLATELET COUNT, AUTOMATED 278 10^3/uL (150-450); RED BLOOD COUNT 3.45 10^6/uL (4.00-5.40); WHITE BLOOD COUNT 12.2 10^3/uL (4.0-10.0)
[2024-03-27 05:01] LABS: BLOOD UREA NITROGEN 31 MG/DL (9-23); CALCIUM LEVEL 8.4 MG/DL (8.3-10.6); CARBON DIOXIDE LEVEL 21 MMOL/L (20-31); CHLORIDE LEVEL 106 MMOL/L (98-107); GLOMERULAR FILTRATION RATE > 60.0 (>39); GLUCOSE, FASTING 151 MG/DL (74-106); POTASSIUM SERUM 3.7 MMOL/L (3.5-5.1); SODIUM LEVEL 138 MMOL/L (136-145)
[2024-03-27 08:00] VITALS: BP 132/60; TEMP 97.6; O2SAT 94
[2024-03-27] MEDS: TIOTROPIUM INHALER/CAPSULE (SPIRIVA) INH SCH (08:08)
[2024-03-27] MEDS ORDERED: PANTOPRAZOLE 40MG VIAL IV SCH (09:00)
[2024-03-27] MEDS: ENOXAPARIN 30MG/0.3ML SYRINGE (J1650 PER 10MG) SC SCH (10:30)
[2024-03-27] MEDS: ASPIRIN 81MG ENTERIC TABLET PO SCH (10:31)
[2024-03-27] MEDS: COMBIVENT RESPIMAT 100-20MCG INHALER 4GM INH SCH (15:16)
[2024-03-27 16:00] VITALS: BP 132/68; TEMP 97.6; O2SAT 94
[2024-03-27 19:26] VITALS: BP 162/68; TEMP 97.4; O2SAT 94
[2024-03-28 03:04] VITALS: BP 168/71; TEMP 96.7; O2SAT 100
[2024-03-28 05:18] LABS: BLOOD UREA NITROGEN 21 MG/DL (9-23); CALCIUM LEVEL 8.3 MG/DL (8.3-10.6); CARBON DIOXIDE LEVEL 17 MMOL/L (20-31); CHLORIDE LEVEL 113 MMOL/L (98-107); CREATININE FOR GFR 0.61 MG/DL (0.55-1.30); GLOMERULAR FILTRATION RATE > 60.0 (>39); GLUCOSE, FASTING 102 MG/DL (74-106); POTASSIUM SERUM 4.3 MMOL/L (3.5-5.1); SODIUM LEVEL 142 MMOL/L (136-145)
[2024-03-28 06:03] LABS: BASO # 0.1 10^3/uL (0.0-0.2); BASO % 0.3 % (0.0-1.0); HEMATOCRIT 32.9 % (36.0-47.0); HEMOGLOBIN 10.5 g/dl (12.0-15.5); LYMPH # 0.8 10^3/uL (1.5-5.0); LYMPH % 5.8 % (24.0-44.0); MEAN CORPUSCULAR HEMOGLOBIN 28.7 pg (27.0-33.0); MEAN CORPUSCULAR HGB CONC 31.9 g/dl (32.0-36.5); MEAN CORPUSCULAR VOLUME 89.9 fl (80.0-96.0); MONO # 0.9 10^3/uL (0.0-0.8); MONO % 6.4 % (2.0-8.0); NEUTROPHILS # 11.3 10^3/uL (1.5-8.5); NEUTROPHILS % 77.5 % (36.0-66.0); PLATELET COUNT, AUTOMATED 332 10^3/uL (150-450); RED BLOOD COUNT 3.66 10^6/uL (4.00-5.40); WHITE BLOOD COUNT 14.6 10^3/uL (4.0-10.0)
[2024-03-28 07:40] VITALS: BP 162/80; TEMP 97; O2SAT 96
[2024-03-28] MEDS: D5W/0.45% SODIUM CHLORIDE 1,000 ML IV SCH (10:02)
[2024-03-28] MEDS ORDERED: GLUCAGON INJ 1MG VIAL SC PRN (11:40)
[2024-03-28] MEDS: DEXTROSE 50% 50ML SYRINGE IV PRN (11:57)
[2024-03-28] MEDS: D10W/0.45% SODIUM CHLORIDE 1,000 ML IV SCH (11:57)
[2024-03-28 12:43] LABS: PROCALCITONIN 0.24 ng/ml
[2024-03-28] MEDS: PIPERACILLIN/TAZOBACTAM SOD 4.5 GM in D5W MINI-BAG PLUS 50 ML IV SCH (15:08)
[2024-03-28 15:49] VITALS: BP 168/72; TEMP 97.5; O2SAT 100
[2024-03-28 19:23] VITALS: BP 175/75; TEMP 97; O2SAT 99
[2024-03-28 22:58] VITALS: BP 142/65; TEMP 97.5; O2SAT 95
[2024-03-29 03:06] VITALS: BP 142/64; TEMP 97; O2SAT 92
[2024-03-29 06:25] LABS: HEMATOCRIT 33.8 % (36.0-47.0); HEMOGLOBIN 11.2 g/dl (12.0-15.5); MEAN CORPUSCULAR HEMOGLOBIN 28.9 pg (27.0-33.0); MEAN CORPUSCULAR HGB CONC 33.1 g/dl (32.0-36.5); MEAN CORPUSCULAR VOLUME 87.3 fl (80.0-96.0); PLATELET COUNT, AUTOMATED 399 10^3/uL (150-450); RED BLOOD COUNT 3.87 10^6/uL (4.00-5.40); WHITE BLOOD COUNT 13.1 10^3/uL (4.0-10.0)
[2024-03-29 06:48] LABS: BLOOD UREA NITROGEN 16 MG/DL (9-23); CALCIUM LEVEL 8.1 MG/DL (8.3-10.6); CARBON DIOXIDE LEVEL 18 MMOL/L (20-31); CHLORIDE LEVEL 104 MMOL/L (98-107); CREATININE FOR GFR 0.63 MG/DL (0.55-1.30); GLOMERULAR FILTRATION RATE > 60.0 (>39); GLUCOSE, FASTING 103 MG/DL (74-106); SODIUM LEVEL 136 MMOL/L (136-145)
[2024-03-29 07:32] VITALS: BP 137/64; TEMP 96.8; O2SAT 99
[2024-03-29] MEDS ORDERED: E-Z-PAQUE 96% w/w SUSP 176GM BTL As Ordered ONE (07:41)
[2024-03-29 07:47] LABS: MAGNESIUM LEVEL 1.1 MG/DL (1.8-2.4)
[2024-03-29 08:14] LABS: LYMPHOCYTES 15 % (16-44); METAMYELOCYTES 1 % (0-0); MONOCYTES 11 % (0-5); MYELOCYTES 2 % (0-0); NEUTROPHILS 71 % (28-66); PLATELET ESTIMATE NORMAL (NORMAL)
[2024-03-29 08:15] LABS: ANISOCYTOSIS 1+; OVALOCYTES 1+
[2024-03-29] MEDS: KCL 10MEQ/100ML SWI (KRUN) 10 MEQ in IV 1 EA IV ONE (09:54)
[2024-03-29] MEDS: MAG SULF 1GM/100ML (MAG RUN) 1 GM in IV 1 EA IV SCH ×2 (13:41→17:15)
[2024-03-29] MEDS: ONDANSETRON 4MG 2ML VIAL IV PRN (15:25)
[2024-03-29 15:40] VITALS: BP 138/56; TEMP 97.5; O2SAT 96
[2024-03-29 20:58] VITALS: BP 165/77; TEMP 96.8; O2SAT 95
[2024-03-29] MEDS: PIPERACILLIN/TAZOBACTAM SOD 3.375 GM in D5W MINI-BAG PLUS 50 ML IV SCH (21:08)
[2024-03-30 03:52] VITALS: BP_SYST 125; BP_SYST 136; BP_DIAS 60; BP_DIAS 62; TEMP 97.5; O2SAT 73; O2SAT 96
[2024-03-30 06:27] LABS: BASO % 0.3 % (0.0-1.0); EOS % 0.3 % (0.0-3.0); HEMATOCRIT 32.8 % (36.0-47.0); HEMOGLOBIN 11.2 g/dl (12.0-15.5); LYMPH # 1.8 10^3/uL (1.5-5.0); LYMPH % 18.4 % (24.0-44.0); MEAN CORPUSCULAR HEMOGLOBIN 29.4 pg (27.0-33.0); MEAN CORPUSCULAR HGB CONC 34.1 g/dl (32.0-36.5); MEAN CORPUSCULAR VOLUME 86.1 fl (80.0-96.0); MONO # 1.2 10^3/uL (0.0-0.8); MONO % 12.4 % (2.0-8.0); NEUTROPHILS # 5.9 10^3/uL (1.5-8.5); NEUTROPHILS % 59.5 % (36.0-66.0); PLATELET COUNT, AUTOMATED 365 10^3/uL (150-450); RED BLOOD COUNT 3.81 10^6/uL (4.00-5.40); WHITE BLOOD COUNT 9.9 10^3/uL (4.0-10.0)
[2024-03-30 07:44] LABS: BLOOD UREA NITROGEN 11 MG/DL (9-23); CALCIUM LEVEL 7.8 MG/DL (8.3-10.6); CARBON DIOXIDE LEVEL 21 MMOL/L (20-31); CHLORIDE LEVEL 101 MMOL/L (98-107); CREATININE FOR GFR 0.53 MG/DL (0.55-1.30); GLOMERULAR FILTRATION RATE > 60.0 (>39); GLUCOSE, FASTING 122 MG/DL (74-106); MAGNESIUM LEVEL 1.7 MG/DL (1.8-2.4); POTASSIUM SERUM 2.7 MMOL/L (3.5-5.1); SODIUM LEVEL 133 MMOL/L (136-145)
[2024-03-30] MEDS ORDERED: MAG SULF 1GM/100ML (MAG RUN) 1 GM in IV 1 EA IV ONE (09:00)
[2024-03-30] MEDS: KCL 40MEQ in NS 1000ML 1,000 ML IV SCH (09:58)
[2024-03-30] MEDS: POTASSIUM CHLORIDE 10% LIQ 20MEQ/15ML UDC PEG SCH (09:59)
[2024-03-30] MEDS ORDERED: KCL 10MEQ/100ML SWI (KRUN) 10 MEQ in IV 1 EA IV SCH (10:00)
[2024-03-30 12:00] VITALS: BP 142/62; TEMP 97.8; O2SAT 98
[2024-03-30] MEDS: ASPIRIN 81MG CHEW TABLET PEG SCH (12:21)
[2024-03-30] MEDS ORDERED: KCL 40MEQ IN D5/0.45NS 1000ML 1,000 ML IV SCH (14:00)
[2024-03-30 14:17] LABS: BLOOD UREA NITROGEN 11 MG/DL (9-23); CALCIUM LEVEL 8.2 MG/DL (8.3-10.6); CARBON DIOXIDE LEVEL 22 MMOL/L (20-31); CHLORIDE LEVEL 103 MMOL/L (98-107); CREATININE FOR GFR 0.55 MG/DL (0.55-1.30); GLOMERULAR FILTRATION RATE > 60.0 (>39); GLUCOSE, FASTING 108 MG/DL (74-106); POTASSIUM SERUM 4.1 MMOL/L (3.5-5.1); SODIUM LEVEL 133 MMOL/L (136-145)
[2024-03-30] MEDS: LevoFLOXacin 500 MG TABLET PEG SCH (14:28)
[2024-03-30] MEDS: NORCO, ANEXSIA 5/325MG TABLET (HYDROcodone/ACETAMINOPHEN) PO ONE (20:26)
[2024-03-30] MEDS: TOPIRAMATE (TopAMAX) 25 MG TAB PEG SCH (20:27)
[2024-03-30] MEDS: CLOPIDOGREL 75 MG TAB PEG SCH (20:27)
[2024-03-30 21:42] VITALS: BP 139/58; TEMP 97.2; O2SAT 96
[2024-03-31 06:01] VITALS: BP 147/60; TEMP 98; O2SAT 97
[2024-03-31 07:14] LABS: BASO % 0.3 % (0.0-1.0); EOS % 0.3 % (0.0-3.0); HEMATOCRIT 35.4 % (36.0-47.0); HEMOGLOBIN 11.5 g/dl (12.0-15.5); LYMPH # 2.1 10^3/uL (1.5-5.0); LYMPH % 17.8 % (24.0-44.0); MEAN CORPUSCULAR HGB CONC 32.5 g/dl (32.0-36.5); MEAN CORPUSCULAR VOLUME 89.4 fl (80.0-96.0); MONO # 1.5 10^3/uL (0.0-0.8); MONO % 12.8 % (2.0-8.0); NEUTROPHILS % 60.1 % (36.0-66.0); PLATELET COUNT, AUTOMATED 431 10^3/uL (150-450); RED BLOOD COUNT 3.96 10^6/uL (4.00-5.40); WHITE BLOOD COUNT 11.7 10^3/uL (4.0-10.0)
[2024-03-31 07:39] LABS: ALBUMIN 2.5 G/DL (3.2-5.2); ALKALINE PHOSPHATASE 81 U/L (46-116); ALT/SGPT 23 U/L (7.0-40); AST/SGOT 10 U/L (<34); BILIRUBIN,TOTAL 0.3 MG/DL (0.3-1.2); BLOOD UREA NITROGEN 16 MG/DL (9-23); CARBON DIOXIDE LEVEL 21 MMOL/L (20-31); CHLORIDE LEVEL 107 MMOL/L (98-107); CREATININE FOR GFR 0.55 MG/DL (0.55-1.30); GLOMERULAR FILTRATION RATE > 60.0 (>39); GLUCOSE, FASTING 79 MG/DL (74-106); MAGNESIUM LEVEL 1.3 MG/DL (1.8-2.4); POTASSIUM SERUM 4.6 MMOL/L (3.5-5.1); SODIUM LEVEL 137 MMOL/L (136-145); TOTAL PROTEIN 6.1 G/DL (5.7-8.2)
[2024-03-31] MEDS ORDERED: LEVO1TAB39 PEG (07:45)
[2024-03-31] MEDS ORDERED: MAGN400T2 PEG (07:45)
[2024-03-31] MEDS ORDERED: PROB250C PO (08:42)
[2024-03-31] MEDS: MAG SULF 1GM/100ML (MAG RUN) 1 GM in IV 1 EA IV SCH (09:14)
[2024-03-31] MEDS: MAGNESIUM OXIDE 400MG TAB (MAG-OX) PO SCH (09:15)
[2024-03-31 12:00] VITALS: BP 142/62; TEMP 98; O2SAT 95
== END 2024-03-31 12:40 | DRG 871 ==
LOC: M ED 11:29 → M ED INP 16:33 → M PCU 21:27 → M MS5PR 03-29 15:14
PROVIDERS: ADMIT Internal Medicine Nephrology; ATTEND Internal Medicine
PROC: 3E0333Z Introduction of Anti-inflammatory into Peripheral Vein, Percutaneous Approach (ICD-10-PCS; principal; 2024-03-27)
DX: A41.9 Sepsis, unspecified organism (principal); U07.1 COVID-19; J69.0 Pneumonitis due to inhalation of food and vomit; E43 Unspecified severe protein-calorie malnutrition; J12.82 Pneumonia due to coronavirus disease 2019; D50.9 Iron deficiency anemia, unspecified; B96.29 Other Escherichia coli [E. coli] as the cause of diseases classified elsewhere; R74.01 Elevation of levels of liver transaminase levels; J44.9 Chronic obstructive pulmonary disease, unspecified; R13.14 Dysphagia, pharyngoesophageal phase; I10 Essential (primary) hypertension; I65.23 Occlusion and stenosis of bilateral carotid arteries; E83.42 Hypomagnesemia; E78.5 Hyperlipidemia, unspecified; I48.0 Paroxysmal atrial fibrillation; I25.10 Atherosclerotic heart disease of native coronary artery without angina pectoris; I73.9 Peripheral vascular disease, unspecified; M19.90 Unspecified osteoarthritis, unspecified site; R26.89 Other abnormalities of gait and mobility; I69.398 Other sequelae of cerebral infarction; E87.6 Hypokalemia; K21.00 Gastro-esophageal reflux disease with esophagitis, without bleeding; Z99.81 Dependence on supplemental oxygen; Z98.42 Cataract extraction status, left eye; Z90.79 Acquired absence of other genital organ(s); Z87.891 Personal history of nicotine dependence; Z90.49 Acquired absence of other specified parts of digestive tract; Z93.1 Gastrostomy status; K29.50 Unspecified chronic gastritis without bleeding; Z79.82 Long term (current) use of aspirin; Z79.899 Other long term (current) drug therapy; Z88.8 Allergy status to other drugs, medicaments and biological substances

== ENCOUNTER 2024-04-02 11:25 | Inpatient (IN) | payer MEDICARE ==
[~2024-04-02] VITALS: Ht 157.5 cm; Wt 45.8 kg
[~2024-04-02 11:25] MED LIST changes: -BISA10SU PR; -ENSULIQ51 PO; -FLEEENE12 PR; -LEVO1TAB39 PO; -LOPE-26 PO; -MILK24002 PO; -PROC25SU27 PR
[2024-04-02 12:09] LABS: HEMATOCRIT 27.4 % (36.0-47.0); HEMOGLOBIN 9.1 g/dl (12.0-15.5); MEAN CORPUSCULAR HEMOGLOBIN 29.3 pg (27.0-33.0); MEAN CORPUSCULAR HGB CONC 33.2 g/dl (32.0-36.5); MEAN CORPUSCULAR VOLUME 88.1 fl (80.0-96.0); PLATELET COUNT, AUTOMATED 629 10^3/uL (150-450); RED BLOOD COUNT 3.11 10^6/uL (4.00-5.40)
[2024-04-02 12:21] LABS: INR 1.16; PARTIAL THROMBOPLASTIN TIME 30.5 SECONDS (24.8-34.2); PROTHROMBIN TIME 14.5 SECONDS (12.5-14.5); WHITE BLOOD COUNT 41.7 10^3/uL (4.0-10.0)
[2024-04-02 12:40] LABS: BLOOD UREA NITROGEN 45 MG/DL (9-23); CALCIUM LEVEL 8.6 MG/DL (8.3-10.6); CARBON DIOXIDE LEVEL 22 MMOL/L (20-31); CHLORIDE LEVEL 98 MMOL/L (98-107); CREATININE FOR GFR 0.69 MG/DL (0.55-1.30); GLOMERULAR FILTRATION RATE > 60.0 (>39); GLUCOSE, FASTING 193 MG/DL (74-106); POTASSIUM SERUM 3.5 MMOL/L (3.5-5.1); SODIUM LEVEL 131 MMOL/L (136-145)
[2024-04-02 12:50] LABS: BASO # 0.1 10^3/uL (0.0-0.2); BASO % 0.2 % (0.0-1.0); LYMPH # 2.5 10^3/uL (1.5-5.0); LYMPH % 5.9 % (24.0-44.0); MONO % 8.6 % (2.0-8.0); NEUTROPHILS # 34.4 10^3/uL (1.5-8.5); NEUTROPHILS % 81.2 % (36.0-66.0)
[2024-04-02 13:24] LABS: MONO # 3.7 10^3/uL (0.0-0.8)
[2024-04-02 13:26] LABS: PLATELET ESTIMATE INCREASED (NORMAL)
[2024-04-02] MEDS: NS 1,250 ML in IV 1 EA IV ONE (13:45)
[2024-04-02] MEDS ORDERED: ISOVUE-370 76% 100ML VIAL As Ordered ONE (14:19)
[2024-04-02] MEDS: PIPERACILLIN/TAZOBACTAM SOD 4.5 GM in D5W MINI-BAG PLUS 50 ML IV ONE (14:38)
[2024-04-02] MEDS: METOCLOPRAMIDE INJ 10MG/2ML VIAL IV ONE (15:07)
[2024-04-02] MEDS: PANTOPRAZOLE 40MG VIAL IV ONE (15:07)
[2024-04-02 15:47] LABS: HEMATOCRIT 23.8 % (36.0-47.0); HEMOGLOBIN 7.6 g/dl (12.0-15.5)
[2024-04-02 16:18] LABS: ALBUMIN 2.4 G/DL (3.2-5.2); BILIRUBIN,DIRECT 0.1 MG/DL (<0.4); BILIRUBIN,TOTAL 0.3 MG/DL (0.3-1.2); TOTAL PROTEIN 5.6 G/DL (5.7-8.2)
[2024-04-02] MEDS ORDERED: ENSULIQ51 PO (16:32)
[2024-04-02] MEDS ORDERED: BISA10SU PR (16:32)
[2024-04-02] MEDS ORDERED: LOPE-26 PO (16:32)
[2024-04-02] MEDS ORDERED: PROC25SU27 PR (16:32)
[2024-04-02] MEDS ORDERED: MILK24002 PO (16:32)
[2024-04-02] MEDS ORDERED: LEVO1TAB39 PO (16:32)
[2024-04-02] MEDS ORDERED: FLEEENE12 PR (16:32)
[2024-04-02] MEDS ORDERED: HOME MED LIST COMPLETE! XX SCH (16:35)
[2024-04-02 17:40] LABS: PROLACTIN 36.69 NG/ML
[2024-04-02 17:59] VITALS: BP 170/90; TEMP 97.2; O2SAT 98
[2024-04-02 18:03] LABS: BASO # 0.1 10^3/uL (0.0-0.2); BASO % 0.1 % (0.0-1.0); HEMATOCRIT 22.2 % (36.0-47.0); HEMOGLOBIN 7.2 g/dl (12.0-15.5); LYMPH # 1.3 10^3/uL (1.5-5.0); LYMPH % 3.2 % (24.0-44.0); MEAN CORPUSCULAR HEMOGLOBIN 29.4 pg (27.0-33.0); MEAN CORPUSCULAR HGB CONC 32.4 g/dl (32.0-36.5); MEAN CORPUSCULAR VOLUME 90.6 fl (80.0-96.0); MONO % 7.1 % (2.0-8.0); NEUTROPHILS % 85.7 % (36.0-66.0); RED BLOOD COUNT 2.45 10^6/uL (4.00-5.40)
[2024-04-02 18:10] LABS: LIPASE 50 U/L (12-53)
[2024-04-02 18:14] LABS: WHITE BLOOD COUNT 42.1 10^3/uL (4.0-10.0)
[2024-04-02 18:15] LABS: ALBUMIN 2.5 G/DL (3.2-5.2); ALKALINE PHOSPHATASE 60 U/L (46-116); ALT/SGPT 11 U/L (7.0-40); AST/SGOT 13 U/L (<34); BILIRUBIN,TOTAL 0.4 MG/DL (0.3-1.2); BLOOD UREA NITROGEN 41 MG/DL (9-23); CALCIUM LEVEL 7.4 MG/DL (8.3-10.6); CARBON DIOXIDE LEVEL 19 MMOL/L (20-31); CHLORIDE LEVEL 107 MMOL/L (98-107); CREATININE FOR GFR 0.67 MG/DL (0.55-1.30); GLOMERULAR FILTRATION RATE > 60.0 (>39); GLUCOSE, FASTING 163 MG/DL (74-106); PLATELET COUNT, AUTOMATED 472 10^3/uL (150-450); POTASSIUM SERUM 3.2 MMOL/L (3.5-5.1); SODIUM LEVEL 137 MMOL/L (136-145); TOTAL PROTEIN 5.6 G/DL (5.7-8.2)
[2024-04-02 18:17] VITALS: BP 189/83; TEMP 97.5; O2SAT 100
[2024-04-02 18:59] LABS: CK-MB VALUE MASS < 1.0 NG/ML (<3.6)
[2024-04-02 19:00] LABS: CPK CREATINE PHOSPHOKINASE 17 U/L (34-145); MB/CK RELATIVE INDEX 5.88 (< OR =4)
[2024-04-02] MEDS: ONDANSETRON 4MG 2ML VIAL IV ONE (19:37)
[2024-04-02 19:50] VITALS: BP 178/70; TEMP 97; O2SAT 97
[2024-04-02] MEDS: TOPIRAMATE (TopAMAX) 25 MG TAB PO SCH (21:00)
[2024-04-02 21:32] LABS: BASO # 0.1 10^3/uL (0.0-0.2); BASO % 0.1 % (0.0-1.0); HEMOGLOBIN 10.4 g/dl (12.0-15.5); LYMPH # 1.6 10^3/uL (1.5-5.0); MEAN CORPUSCULAR HEMOGLOBIN 29.8 pg (27.0-33.0); MEAN CORPUSCULAR HGB CONC 33.5 g/dl (32.0-36.5); MEAN CORPUSCULAR VOLUME 88.8 fl (80.0-96.0); MONO % 8.4 % (2.0-8.0); NEUTROPHILS # 33.9 10^3/uL (1.5-8.5); PLATELET COUNT, AUTOMATED 417 10^3/uL (150-450); RED BLOOD COUNT 3.49 10^6/uL (4.00-5.40)
[2024-04-02 21:40] LABS: MONO # 3.4 10^3/uL (0.0-0.8); WHITE BLOOD COUNT 40.4 10^3/uL (4.0-10.0)
[2024-04-02 23:18] LABS: HEMATOCRIT 29.1 % (36.0-47.0); HEMOGLOBIN 9.8 g/dl (12.0-15.5); MEAN CORPUSCULAR HEMOGLOBIN 29.5 pg (27.0-33.0); MEAN CORPUSCULAR HGB CONC 33.7 g/dl (32.0-36.5); MEAN CORPUSCULAR VOLUME 87.7 fl (80.0-96.0); PLATELET COUNT, AUTOMATED 401 10^3/uL (150-450); RED BLOOD COUNT 3.32 10^6/uL (4.00-5.40)
[2024-04-02 23:27] LABS: WHITE BLOOD COUNT 39.9 10^3/uL (4.0-10.0)
[2024-04-02] MEDS ORDERED: MOM 30ML SUSPENSION UDC PO PRN (23:30)
[2024-04-03] VITALS (13 sets, daily range): BP systolic 128–174; BP diastolic 60–72; TEMP 97–97.7; O2SAT 84–99
[2024-04-03] MEDS: SUCRALFATE 1 GM TAB PEG SCH
[2024-04-03] MEDS: PIPERACILLIN/TAZOBACTAM SOD 3.375 GM in D5W MINI-BAG PLUS 50 ML IV SCH (00:09)
[2024-04-03] MEDS: METOCLOPRAMIDE INJ 10MG/2ML VIAL IV SCH (00:09)
[2024-04-03] MEDS: PANTOPRAZOLE 40MG VIAL IV ONE (00:09)
[2024-04-03] MEDS: ONDANSETRON 4MG 2ML VIAL IV PRN (01:48)
[2024-04-03] MEDS: SCOPOLAMINE 1MG TRANSDERMAL PATCH TOP ONE (05:26)
[2024-04-03 05:29] LABS: HEMATOCRIT 29.5 % (36.0-47.0); MEAN CORPUSCULAR HEMOGLOBIN 29.2 pg (27.0-33.0); MEAN CORPUSCULAR HGB CONC 33.9 g/dl (32.0-36.5); MEAN CORPUSCULAR VOLUME 86.3 fl (80.0-96.0); PLATELET COUNT, AUTOMATED 415 10^3/uL (150-450); RED BLOOD COUNT 3.42 10^6/uL (4.00-5.40)
[2024-04-03 05:40] LABS: WHITE BLOOD COUNT 38.4 10^3/uL (4.0-10.0)
[2024-04-03 06:01] LABS: ALBUMIN 2.8 G/DL (3.2-5.2); ALKALINE PHOSPHATASE 67 U/L (46-116); ALT/SGPT 15 U/L (7.0-40); AST/SGOT 25 U/L (<34); BILIRUBIN,TOTAL 0.7 MG/DL (0.3-1.2); BLOOD UREA NITROGEN 29 MG/DL (9-23); CALCIUM LEVEL 8.3 MG/DL (8.3-10.6); CARBON DIOXIDE LEVEL 22 MMOL/L (20-31); CHLORIDE LEVEL 107 MMOL/L (98-107); CREATININE FOR GFR 0.57 MG/DL (0.55-1.30); GLOMERULAR FILTRATION RATE > 60.0 (>39); GLUCOSE, FASTING 115 MG/DL (74-106); POTASSIUM SERUM 2.9 MMOL/L (3.5-5.1); SODIUM LEVEL 139 MMOL/L (136-145); TOTAL PROTEIN 6.2 G/DL (5.7-8.2)
[2024-04-03] MEDS ORDERED: KCL 10MEQ/100ML SWI (KRUN) 10 MEQ in IV 1 EA IV ONE (06:10)
[2024-04-03] MEDS: LR 1,000 ML IV SCH (06:52)
[2024-04-03] MEDS: KCL 10MEQ/100ML SWI (KRUN) 10 MEQ in IV 1 EA IV SCH ×2 (06:52→11:37)
[2024-04-03] MEDS: ADVAIR HFA 115/21MCG INHALER INH SCH (07:26)
[2024-04-03] MEDS: POTASSIUM CHLORIDE 10MEQ SR TABLET PO ONE (07:46)
[2024-04-03 09:57] LABS: HEMATOCRIT 28.2 % (36.0-47.0); HEMOGLOBIN 9.3 g/dl (12.0-15.5)
[2024-04-03] MEDS: DOCUSATE SODIUM 100MG CAPSULE PO SCH (10:05)
[2024-04-03] MEDS: ASCORBIC ACID 500 MG TAB PO SCH (10:05)
[2024-04-03] MEDS: PANTOPRAZOLE 40MG VIAL IV SCH (10:05)
[2024-04-03 10:32] LABS: BLOOD UREA NITROGEN 18 MG/DL (9-23); CALCIUM LEVEL 8.1 MG/DL (8.3-10.6); CARBON DIOXIDE LEVEL 20 MMOL/L (20-31); CHLORIDE LEVEL 108 MMOL/L (98-107); CREATININE FOR GFR 0.59 MG/DL (0.55-1.30); GLOMERULAR FILTRATION RATE > 60.0 (>39); GLUCOSE, FASTING 115 MG/DL (74-106); POTASSIUM SERUM 3.6 MMOL/L (3.5-5.1); SODIUM LEVEL 138 MMOL/L (136-145)
[2024-04-03] MEDS: NS 1,000 ML IV ONE (11:16)
[2024-04-03 12:34] LABS: HEMATOCRIT 30.6 % (36.0-47.0); HEMOGLOBIN 9.6 g/dl (12.0-15.5); MEAN CORPUSCULAR HEMOGLOBIN 29.3 pg (27.0-33.0); MEAN CORPUSCULAR HGB CONC 31.4 g/dl (32.0-36.5); MEAN CORPUSCULAR VOLUME 93.3 fl (80.0-96.0); PLATELET COUNT, AUTOMATED 327 10^3/uL (150-450); RED BLOOD COUNT 3.28 10^6/uL (4.00-5.40)
[2024-04-03 12:36] LABS: WHITE BLOOD COUNT 35.5 10^3/uL (4.0-10.0)
[2024-04-03] MEDS: NS 1,000 ML IV SCH (13:13)
[2024-04-03] MEDS ORDERED: GLUCAGON INJ 1MG VIAL SC PRN (17:00)
[2024-04-03] MEDS ORDERED: GLUCOSE 4 GM CHEW PO PRN (17:00)
[2024-04-03] MEDS: DEXTROSE 50% 50ML SYRINGE IV PRN (17:47)
[2024-04-03 18:50] LABS: CLOSTRIDIUM DIFFICILE PCR NEGATIVE (NEGATIVE)
[2024-04-03] MEDS: ACETAMINOPHEN TAB 650MG DOSE (2X325MG) PO PRN (23:42)
[2024-04-04] VITALS (33 sets, daily range): BP systolic 121–178; BP diastolic 55–72; TEMP 96.6–97.6; O2SAT 94–98
[2024-04-04] MEDS: ACETAMINOPHEN 325 MG TAB PO ONE (01:00)
[2024-04-04] MEDS: MORPHINE 2 MG/ML 1ML VIAL IV PRN (01:16)
[2024-04-04] MEDS ORDERED: SUCRALFATE SUSP 1GM/10ML UD PO SCH (05:05)
[2024-04-04 06:09] LABS: BASO % 0.1 % (0.0-1.0); EOS % 0.2 % (0.0-3.0); LYMPH # 1.6 10^3/uL (1.5-5.0); LYMPH % 8.2 % (24.0-44.0); MEAN CORPUSCULAR HEMOGLOBIN 29.5 pg (27.0-33.0); MEAN CORPUSCULAR HGB CONC 32.7 g/dl (32.0-36.5); MEAN CORPUSCULAR VOLUME 90.3 fl (80.0-96.0); MONO # 1.9 10^3/uL (0.0-0.8); MONO % 9.7 % (2.0-8.0); NEUTROPHILS # 15.8 10^3/uL (1.5-8.5); NEUTROPHILS % 79.8 % (36.0-66.0); PLATELET COUNT, AUTOMATED 327 10^3/uL (150-450); RED BLOOD COUNT 2.27 10^6/uL (4.00-5.40); WHITE BLOOD COUNT 19.8 10^3/uL (4.0-10.0)
[2024-04-04 06:18] LABS: HEMATOCRIT 20.5 % (36.0-47.0); HEMOGLOBIN 6.7 g/dl (12.0-15.5)
[2024-04-04] MEDS: SUCRALFATE SUSP 1GM/10ML UD PEG SCH (06:27)
[2024-04-04 06:34] LABS: ALBUMIN 2.3 G/DL (3.2-5.2); ALKALINE PHOSPHATASE 55 U/L (46-116); ALT/SGPT 12 U/L (7.0-40); AST/SGOT 22 U/L (<34); BILIRUBIN,TOTAL 0.5 MG/DL (0.3-1.2); BLOOD UREA NITROGEN 10 MG/DL (9-23); CALCIUM LEVEL 7.4 MG/DL (8.3-10.6); CARBON DIOXIDE LEVEL 21 MMOL/L (20-31); CHLORIDE LEVEL 106 MMOL/L (98-107); CREATININE FOR GFR 0.55 MG/DL (0.55-1.30); GLOMERULAR FILTRATION RATE > 60.0 (>39); GLUCOSE, FASTING 70 MG/DL (74-106); POTASSIUM SERUM 3.1 MMOL/L (3.5-5.1); SODIUM LEVEL 136 MMOL/L (136-145); TOTAL PROTEIN 5.1 G/DL (5.7-8.2)
[2024-04-04] MEDS ORDERED: DEXTROSE 50% 50ML SYRINGE IV PRN (06:45)
[2024-04-04] MEDS ORDERED: GLUCOSE 4 GM CHEW PO PRN (06:45)
[2024-04-04] MEDS ORDERED: GLUCAGON INJ 1MG VIAL SC PRN (06:45)
[2024-04-04 07:42] LABS: IONIZED CALCIUM 4.3 MG/DL (4.5-5.3)
[2024-04-04 07:47] LABS: HEMATOCRIT 21.7 % (36.0-47.0); HEMOGLOBIN 7.2 g/dl (12.0-15.5)
[2024-04-04 08:09] LABS: MAGNESIUM LEVEL 1.5 MG/DL (1.8-2.4)
[2024-04-04] MEDS: PANTOPRAZOLE 40MG VIAL IV ONE (08:12)
[2024-04-04] MEDS: PANTOPRAZOLE SODIUM 40 MG in D5W 50 ML IV SCH (08:13)
[2024-04-04] MEDS: KCL 10MEQ/100ML SWI (KRUN) 10 MEQ in IV 1 EA IV SCH (08:14)
[2024-04-04] MEDS: KCL 40MEQ IN D5/0.45NS 1000ML 1,000 ML IV SCH (14:09)
[2024-04-04] MEDS: DEXTROSE 50% 50ML SYRINGE IV STA (14:09)
[2024-04-04 14:52] LABS: HEMATOCRIT 36.2 % (36.0-47.0)
[2024-04-04] MEDS: traMADol 50 MG TAB PO PRN (19:25)
[2024-04-04] MEDS: LIDOCAINE 5% (LIDODERM) PATCH TD ONE (21:42)
[2024-04-04] MEDS: DICLOFENAC EPOLAMINE 1.3% PATCH TOP SCH (21:42)
[2024-04-04] MEDS: MORPHINE 4 MG/ML 1ML VIAL IV ONE (23:48)
[2024-04-05] VITALS (15 sets, daily range): BP systolic 90–180; BP diastolic 62–86; TEMP 97.3–99.3; O2SAT 95–100
[2024-04-05 07:51] LABS: BASO % 0.1 % (0.0-1.0); EOS # 0.1 10^3/uL (0.0-0.5); EOS % 0.8 % (0.0-3.0); HEMATOCRIT 34.6 % (36.0-47.0); HEMOGLOBIN 12.1 g/dl (12.0-15.5); LYMPH # 1.6 10^3/uL (1.5-5.0); LYMPH % 12.3 % (24.0-44.0); MEAN CORPUSCULAR HEMOGLOBIN 30.4 pg (27.0-33.0); MEAN CORPUSCULAR VOLUME 86.9 fl (80.0-96.0); MONO # 1.6 10^3/uL (0.0-0.8); MONO % 12.4 % (2.0-8.0); NEUTROPHILS # 9.2 10^3/uL (1.5-8.5); NEUTROPHILS % 72.1 % (36.0-66.0); PLATELET COUNT, AUTOMATED 301 10^3/uL (150-450); RED BLOOD COUNT 3.98 10^6/uL (4.00-5.40); WHITE BLOOD COUNT 12.8 10^3/uL (4.0-10.0)
[2024-04-05 08:22] LABS: ALBUMIN 2.3 G/DL (3.2-5.2); ALKALINE PHOSPHATASE 57 U/L (46-116); ALT/SGPT 11 U/L (7.0-40); AST/SGOT 16 U/L (<34); BILIRUBIN,TOTAL 0.8 MG/DL (0.3-1.2); BLOOD UREA NITROGEN < 5 MG/DL (9-23); CALCIUM LEVEL 7.3 MG/DL (8.3-10.6); CARBON DIOXIDE LEVEL 22 MMOL/L (20-31); CHLORIDE LEVEL 101 MMOL/L (98-107); CREATININE FOR GFR 0.57 MG/DL (0.55-1.30); GLOMERULAR FILTRATION RATE > 60.0 (>39); GLUCOSE, FASTING 74 MG/DL (74-106); POTASSIUM SERUM 3.3 MMOL/L (3.5-5.1); SODIUM LEVEL 130 MMOL/L (136-145); TOTAL PROTEIN 5.2 G/DL (5.7-8.2)
[2024-04-05] MEDS: DEXTROSE 50% 50ML SYRINGE IV STA ×2 (08:28→16:06)
[2024-04-05] MEDS: D10W/0.45% SODIUM CHLORIDE 1,000 ML IV SCH (08:34)
[2024-04-05] MEDS: POTASSIUM CHLORIDE 10MEQ SR TABLET PO ONE (10:25)
[2024-04-05] MEDS ORDERED: D10W/0.45% SODIUM CHLORIDE 1,000 ML IV SCH (16:00)
[2024-04-05] MEDS ORDERED: DEXTROSE 50% 50ML SYRINGE IV PRN (16:10)
[2024-04-05] MEDS: ACETAMINOPHEN 325MG/10.15ML UDC GT PRN (17:12)
[2024-04-06 00:23] VITALS: BP 145/62; TEMP 96.9; O2SAT 98
[2024-04-06 04:00] VITALS: BP 157/84; TEMP 97.3; O2SAT 95
[2024-04-06 07:17] LABS: BASO % 0.2 % (0.0-1.0); EOS # 0.1 10^3/uL (0.0-0.5); EOS % 0.7 % (0.0-3.0); HEMATOCRIT 39.4 % (36.0-47.0); HEMOGLOBIN 13.6 g/dl (12.0-15.5); LYMPH # 1.2 10^3/uL (1.5-5.0); LYMPH % 7.3 % (24.0-44.0); MEAN CORPUSCULAR HEMOGLOBIN 30.2 pg (27.0-33.0); MEAN CORPUSCULAR HGB CONC 34.5 g/dl (32.0-36.5); MEAN CORPUSCULAR VOLUME 87.6 fl (80.0-96.0); MONO # 2.3 10^3/uL (0.0-0.8); NEUTROPHILS # 12.3 10^3/uL (1.5-8.5); NEUTROPHILS % 75.5 % (36.0-66.0); PLATELET COUNT, AUTOMATED 321 10^3/uL (150-450); WHITE BLOOD COUNT 16.3 10^3/uL (4.0-10.0)
[2024-04-06 07:49] VITALS: BP 101/57; TEMP 97.4; O2SAT 96
[2024-04-06] MEDS ORDERED: DEXTROSE 50% 50ML SYRINGE IV PRN (07:50)
[2024-04-06 08:07] LABS: ALBUMIN 2.3 G/DL (3.2-5.2); ALKALINE PHOSPHATASE 63 U/L (46-116); ALT/SGPT 10 U/L (7.0-40); AST/SGOT 16 U/L (<34); BILIRUBIN,TOTAL 0.4 MG/DL (0.3-1.2); BLOOD UREA NITROGEN < 5 MG/DL (9-23); CALCIUM LEVEL 7.1 MG/DL (8.3-10.6); CARBON DIOXIDE LEVEL 20 MMOL/L (20-31); CHLORIDE LEVEL 100 MMOL/L (98-107); CREATININE FOR GFR 0.43 MG/DL (0.55-1.30); GLOMERULAR FILTRATION RATE > 60.0 (>39); GLUCOSE, FASTING 117 MG/DL (74-106); POTASSIUM SERUM 2.7 MMOL/L (3.5-5.1); SODIUM LEVEL 131 MMOL/L (136-145); TOTAL PROTEIN 5.6 G/DL (5.7-8.2)
[2024-04-06] MEDS: D5W/0.45% SODIUM CHLORIDE 1,000 ML IV SCH (09:40)
[2024-04-06] MEDS: KCL 10MEQ/100ML SWI (KRUN) 10 MEQ in IV 1 EA IV SCH (09:41)
[2024-04-06] MEDS: POTASSIUM CHLORIDE 10% LIQ 20MEQ/15ML UDC PEG SCH (11:47)
[2024-04-06] MEDS: MAG SULF 1GM/100ML (MAG RUN) 1 GM in IV 1 EA IV ONE (12:57)
[2024-04-06 15:52] LABS: IONIZED CALCIUM 4.1 MG/DL (4.5-5.3)
[2024-04-06 16:33] LABS: BLOOD UREA NITROGEN < 5 MG/DL (9-23); CARBON DIOXIDE LEVEL 22 MMOL/L (20-31); CHLORIDE LEVEL 101 MMOL/L (98-107); CREATININE FOR GFR 0.44 MG/DL (0.55-1.30); GLOMERULAR FILTRATION RATE > 60.0 (>39); GLUCOSE, FASTING 108 MG/DL (74-106); MAGNESIUM LEVEL 1.4 MG/DL (1.8-2.4); POTASSIUM SERUM 4.8 MMOL/L (3.5-5.1); SODIUM LEVEL 132 MMOL/L (136-145)
== END 2024-04-06 16:13 | disposition other institution (70) | DRG 871 ==
LOC: M ED 11:25 → EDBD 11:25 → M ED INP 23:29 → M PCU 04-03 01:23
PROVIDERS: ADMIT Student in an Organized Health Care Education/Training Program; ATTEND Student in an Organized Health Care Education/Training Program
PROC: 30233N1 Transfusion of Nonautologous Red Blood Cells into Peripheral Vein, Percutaneous Approach (ICD-10-PCS; principal; 2024-04-02)
DX: A41.9 Sepsis, unspecified organism (principal); U07.1 COVID-19; E43 Unspecified severe protein-calorie malnutrition; J69.0 Pneumonitis due to inhalation of food and vomit; K20.91 Esophagitis, unspecified with bleeding; K92.2 Gastrointestinal hemorrhage, unspecified; D62 Acute posthemorrhagic anemia; E87.20 Acidosis, unspecified; J96.11 Chronic respiratory failure with hypoxia; K31.1 Adult hypertrophic pyloric stenosis; E87.1 Hypo-osmolality and hyponatremia; J44.9 Chronic obstructive pulmonary disease, unspecified; I10 Essential (primary) hypertension; E78.5 Hyperlipidemia, unspecified; I48.0 Paroxysmal atrial fibrillation; D50.9 Iron deficiency anemia, unspecified; K20.90 Esophagitis, unspecified without bleeding; I69.318 Other symptoms and signs involving cognitive functions following cerebral infarction; I25.10 Atherosclerotic heart disease of native coronary artery without angina pectoris; G43.909 Migraine, unspecified, not intractable, without status migrainosus; R13.14 Dysphagia, pharyngoesophageal phase; G62.9 Polyneuropathy, unspecified; I73.9 Peripheral vascular disease, unspecified; R26.89 Other abnormalities of gait and mobility; E87.6 Hypokalemia; M19.90 Unspecified osteoarthritis, unspecified site; Z98.42 Cataract extraction status, left eye; Z90.49 Acquired absence of other specified parts of digestive tract; Z90.79 Acquired absence of other genital organ(s); Z89.421 Acquired absence of other right toe(s); Z87.891 Personal history of nicotine dependence; Z99.81 Dependence on supplemental oxygen

== ENCOUNTER → 2024-04-02 | Outpatient (REF) | payer MEDICARE ==
[~2024-04-02] MED LIST changes: +AMOX500T2 PO; +BACIOIN5 TOP; +BISA10SU PR; +ENSULIQ51 PO; +FLEEENE12 PR; +GUAI100S51 PO; +JUVEPOW4 PO; +LEVO1TAB39 PEG; +LEVO1TAB39 PO; +LOPE-26 PO; +MAGN400T2 PEG; +MILK24002 PO; +MOLN200C PO; +POTA10CA70 PO; +PROB250C PO; +PROC25SU27 PR
[2024-04-02 08:50] LABS: HEMATOCRIT 29.1 % (36.0-47.0); HEMOGLOBIN 9.8 g/dl (12.0-15.5); MEAN CORPUSCULAR HEMOGLOBIN 29.4 pg (27.0-33.0); MEAN CORPUSCULAR HGB CONC 33.7 g/dl (32.0-36.5); MEAN CORPUSCULAR VOLUME 87.4 fl (80.0-96.0); PLATELET COUNT, AUTOMATED 545 10^3/uL (150-450); RED BLOOD COUNT 3.33 10^6/uL (4.00-5.40); WHITE BLOOD COUNT 29.6 10^3/uL (4.0-10.0)
[2024-04-02 09:13] LABS: ALBUMIN 2.9 G/DL (3.2-5.2); ALKALINE PHOSPHATASE 72 U/L (46-116); ALT/SGPT 14 U/L (7.0-40); AST/SGOT 12 U/L (<34); BILIRUBIN,TOTAL 0.3 MG/DL (0.3-1.2); BLOOD UREA NITROGEN 42 MG/DL (9-23); CALCIUM LEVEL 8.6 MG/DL (8.3-10.6); CARBON DIOXIDE LEVEL 23 MMOL/L (20-31); CHLORIDE LEVEL 100 MMOL/L (98-107); CREATININE FOR GFR 0.58 MG/DL (0.55-1.30); GLOMERULAR FILTRATION RATE > 60.0 (>39); GLUCOSE, FASTING 129 MG/DL (74-106); MAGNESIUM LEVEL 1.8 MG/DL (1.8-2.4); POTASSIUM SERUM 3.4 MMOL/L (3.5-5.1); SODIUM LEVEL 132 MMOL/L (136-145); TOTAL PROTEIN 6.4 G/DL (5.7-8.2)
== END ==
LOC: SKLAB4 08:15
PROVIDERS: ATTEND Internal Medicine
DX: E46 Unspecified protein-calorie malnutrition (principal)

== ENCOUNTER 2024-04-09 16:20 | Observation (INO) | payer MEDICARE ==
[~2024-04-09] VITALS: Ht 157.5 cm; Wt 39.8 kg
[~2024-04-09 16:20] MED LIST changes: +ATOR40TA75 PEG; +BISA10SU PR; +CARA1TAB6 PEG; +ENSULIQ51 PO; +FLEEENE12 PR; +FLOR250C PEG; +GABA-1490 PO; -GABA600T4 PO; +LEVO1TAB39 PO; +LOPE-26 PO; +MILK24002 PO; +PROC25SU27 PR
[2024-04-09 21:06] VITALS: BP 164/72; TEMP 98.7; O2SAT 94
[2024-04-09] MEDS ORDERED: DRIS50003 PEG (23:17)
[2024-04-09] MEDS ORDERED: CHLO125TA PEG (23:17)
[2024-04-09] MEDS ORDERED: VITA500C24 PEG (23:17)
[2024-04-09] MEDS ORDERED: GABA-282 PEG (23:17)
[2024-04-09 23:37] VITALS: BP_SYST 102; BP_SYST 176; BP_DIAS 68; BP_DIAS 74; TEMP 97.5; O2SAT 98
[2024-04-09] MEDS ORDERED: MAGN400T2 PEG (23:42)
[2024-04-09] MEDS ORDERED: ONDA-83 PO (23:42)
[2024-04-09] MEDS ORDERED: CLOP75TA2 PEG (23:42)
[2024-04-09] MEDS ORDERED: FERR325T3 PEG (23:42)
[2024-04-09] MEDS ORDERED: JUVEPOW3 PO (23:42)
[2024-04-09] MEDS ORDERED: PANT40TA29 PEG (23:42)
[2024-04-09] MEDS ORDERED: MELA5TAB21 PO (23:42)
[2024-04-09] MEDS ORDERED: TOPI25TA10 PEG (23:42)
[2024-04-09] MEDS ORDERED: HYDR-3713 PEG (23:42)
[2024-04-09] MEDS ORDERED: OLME20TA50 PEG (23:42)
[2024-04-09] MEDS ORDERED: POTA10CA70 PEG (23:42)
[2024-04-10] MEDS ORDERED: ACET1TAB55 PEG (00:10)
[2024-04-10] MEDS ORDERED: LOPE-39 PEG (00:10)
[2024-04-10] MEDS ORDERED: MILKSUS3 PEG (00:10)
[2024-04-10] MEDS ORDERED: BISA10SU4 PR (00:10)
[2024-04-10] MEDS ORDERED: MAALSUS19 PEG (00:10)
[2024-04-10] MEDS ORDERED: HOME MED LIST COMPLETE! XX SCH (00:15)
[2024-04-10] MEDS: LIDOCAINE 5% (LIDODERM) PATCH TD ONE (01:30)
[2024-04-10] MEDS ORDERED: BISACODYL 10MG SUPP PR PRN (02:25)
[2024-04-10] MEDS ORDERED: MOM 30ML SUSPENSION UDC PO PRN (02:25)
[2024-04-10] MEDS ORDERED: PILL CUTTER 1 EACH XX PRN (03:00)
[2024-04-10] MEDS: NORCO, ANEXSIA 5/325MG TABLET (HYDROcodone/ACETAMINOPHEN) GT PRN (03:16)
[2024-04-10 04:09] VITALS: BP 106/78; TEMP 97.3; O2SAT 98
[2024-04-10 04:23] LABS: HEMOGLOBIN 12.9 g/dl (12.0-15.5); MEAN CORPUSCULAR HEMOGLOBIN 30.4 pg (27.0-33.0); MEAN CORPUSCULAR HGB CONC 34.9 g/dl (32.0-36.5); MEAN CORPUSCULAR VOLUME 87.1 fl (80.0-96.0); PLATELET COUNT, AUTOMATED 376 10^3/uL (150-450); RED BLOOD COUNT 4.25 10^6/uL (4.00-5.40); WHITE BLOOD COUNT 12.6 10^3/uL (4.0-10.0)
[2024-04-10 04:37] LABS: INR 1.11
[2024-04-10 04:47] LABS: ALBUMIN 2.6 G/DL (3.2-5.2); ALKALINE PHOSPHATASE 84 U/L (46-116); ALT/SGPT 14 U/L (7.0-40); AST/SGOT 10 U/L (<34); BILIRUBIN,TOTAL 0.4 MG/DL (0.3-1.2); BLOOD UREA NITROGEN < 5 MG/DL (9-23); CALCIUM LEVEL 8.2 MG/DL (8.3-10.6); CARBON DIOXIDE LEVEL 24 MMOL/L (20-31); CHLORIDE LEVEL 97 MMOL/L (98-107); CREATININE FOR GFR 0.49 MG/DL (0.55-1.30); GLOMERULAR FILTRATION RATE > 60.0 (>39); GLUCOSE, FASTING 111 MG/DL (74-106); MAGNESIUM LEVEL 1.2 MG/DL (1.8-2.4); POTASSIUM SERUM 3.2 MMOL/L (3.5-5.1); PROCALCITONIN 0.11 ng/ml; SODIUM LEVEL 128 MMOL/L (136-145); TOTAL PROTEIN 6.2 G/DL (5.7-8.2)
[2024-04-10] MEDS: ONDANSETRON 4MG TAB PO PRN (04:53)
[2024-04-10] MEDS: MAG SULF 1GM/100ML (MAG RUN) 1 GM in IV 1 EA IV SCH (06:28)
[2024-04-10] MEDS: ACETAMINOPHEN TAB 650MG DOSE (2X325MG) PO PRN (06:56)
[2024-04-10 08:33] VITALS: BP 102/72; TEMP 97.8; O2SAT 95
[2024-04-10] MEDS ORDERED: UMECLIDINIUM INH SCH (09:00)
[2024-04-10] MEDS ORDERED: FLUTICASONE FUROATE INH SCH (09:00)
[2024-04-10] MEDS ORDERED: VILANTEROL INH SCH (09:00)
[2024-04-10] MEDS ORDERED: ENTER DRUG NAME HERE (PATIENT'S OWN MED) PO SCH (09:00)
[2024-04-10] MEDS ORDERED: ISOVUE-370 76% 100ML VIAL As Ordered ONE (09:31)
[2024-04-10] MEDS: SUCRALFATE 1 GM TAB PO SCH (10:28)
[2024-04-10] MEDS: POTASSIUM CHLORIDE 10MEQ SR TABLET PO SCH (10:28)
[2024-04-10] MEDS: OLMESARTAN MEDOXOMIL 20 MG TAB (BENICAR) PO SCH (10:29)
[2024-04-10] MEDS: ASCORBIC ACID 500 MG TAB PO SCH (10:29)
[2024-04-10] MEDS: ASPIRIN 81MG CHEW TABLET GT SCH (10:32)
[2024-04-10] MEDS: MAGNESIUM OXIDE 400MG TAB (MAG-OX) PO SCH (10:33)
[2024-04-10] MEDS: FERROUS SULFATE 325MG TAB PO SCH (10:33)
[2024-04-10] MEDS: PANTOPRAZOLE 40MG TAB (PROTONIX) PO SCH (10:33)
[2024-04-10 11:57] VITALS: BP 112/56; TEMP 97.5; O2SAT 94
[2024-04-10] MEDS: ONDANSETRON 4MG 2ML VIAL IV PRN (12:39)
[2024-04-10] MEDS: TIOTROPIUM INHALER/CAPSULE (SPIRIVA) INH SCH (15:06)
[2024-04-10 15:23] LABS: BLOOD UREA NITROGEN 6 MG/DL (9-23); CALCIUM LEVEL 7.8 MG/DL (8.3-10.6); CARBON DIOXIDE LEVEL 25 MMOL/L (20-31); CHLORIDE LEVEL 97 MMOL/L (98-107); CREATININE FOR GFR 0.53 MG/DL (0.55-1.30); GLOMERULAR FILTRATION RATE > 60.0 (>39); GLUCOSE, FASTING 125 MG/DL (74-106); MAGNESIUM LEVEL 2.4 MG/DL (1.8-2.4); POTASSIUM SERUM 3.2 MMOL/L (3.5-5.1); SODIUM LEVEL 129 MMOL/L (136-145)
[2024-04-10 16:35] VITALS: BP 106/50; TEMP 97.6; O2SAT 94
[2024-04-10] MEDS: POTASSIUM CHLORIDE 10MEQ SR TABLET PO ONE (18:01)
[2024-04-10] MEDS: ADVAIR HFA 115/21MCG INHALER INH SCH (20:00)
[2024-04-10 20:30] VITALS: BP 108/56; TEMP 97.2; O2SAT 94
[2024-04-10] MEDS: ATORVASTATIN 20 MG TAB PO SCH (21:06)
[2024-04-10] MEDS: GABAPENTIN 300 MG CAP PO SCH (21:06)
[2024-04-10] MEDS: TOPIRAMATE (TopAMAX) 25 MG TAB PO SCH (21:07)
[2024-04-11 04:36] VITALS: BP 110/60; TEMP 98.4; O2SAT 93
[2024-04-11 07:38] VITALS: BP 100/58; TEMP 97.6; O2SAT 97
[2024-04-11 08:34] LABS: HEMOGLOBIN 11.3 g/dl (12.0-15.5); MEAN CORPUSCULAR HEMOGLOBIN 29.6 pg (27.0-33.0); MEAN CORPUSCULAR HGB CONC 34.2 g/dl (32.0-36.5); MEAN CORPUSCULAR VOLUME 86.4 fl (80.0-96.0); PLATELET COUNT, AUTOMATED 344 10^3/uL (150-450); RED BLOOD COUNT 3.82 10^6/uL (4.00-5.40); WHITE BLOOD COUNT 8.8 10^3/uL (4.0-10.0)
[2024-04-11 08:56] LABS: ALBUMIN 2.2 G/DL (3.2-5.2); ALKALINE PHOSPHATASE 75 U/L (46-116); ALT/SGPT < 9 U/L (7.0-40); AST/SGOT < 8 U/L (<34); BILIRUBIN,TOTAL 0.3 MG/DL (0.3-1.2); BLOOD UREA NITROGEN 11 MG/DL (9-23); CALCIUM LEVEL 7.9 MG/DL (8.3-10.6); CARBON DIOXIDE LEVEL 26 MMOL/L (20-31); CHLORIDE LEVEL 98 MMOL/L (98-107); CREATININE FOR GFR 0.53 MG/DL (0.55-1.30); GLOMERULAR FILTRATION RATE > 60.0 (>39); GLUCOSE, FASTING 112 MG/DL (74-106); MAGNESIUM LEVEL 1.8 MG/DL (1.8-2.4); POTASSIUM SERUM 3.6 MMOL/L (3.5-5.1); SODIUM LEVEL 130 MMOL/L (136-145); TOTAL PROTEIN 5.7 G/DL (5.7-8.2)
[2024-04-11 11:57] VITALS: BP 112/62; TEMP 97.1; O2SAT 94
[2024-04-11] MEDS: METOCLOPRAMIDE INJ 10MG/2ML VIAL IV SCH (13:10)
[2024-04-11 16:02] VITALS: BP 110/52; TEMP 97.7; O2SAT 96
[2024-04-11 19:38] VITALS: BP 104/58; TEMP 97.4; O2SAT 95
[2024-04-12 03:46] VITALS: BP 114/66; TEMP 97.5; O2SAT 94
[2024-04-12 04:00] VITALS: BP 114/66; TEMP 97.5; O2SAT 94
[2024-04-12 07:49] LABS: BASO % 0.1 % (0.0-1.0); EOS # 0.1 10^3/uL (0.0-0.5); EOS % 0.8 % (0.0-3.0); HEMATOCRIT 33.7 % (36.0-47.0); HEMOGLOBIN 11.5 g/dl (12.0-15.5); LYMPH # 1.2 10^3/uL (1.5-5.0); LYMPH % 15.8 % (24.0-44.0); MEAN CORPUSCULAR HGB CONC 34.1 g/dl (32.0-36.5); MONO # 0.9 10^3/uL (0.0-0.8); MONO % 11.6 % (2.0-8.0); NEUTROPHILS # 5.2 10^3/uL (1.5-8.5); NEUTROPHILS % 70.3 % (36.0-66.0); PLATELET COUNT, AUTOMATED 340 10^3/uL (150-450); RED BLOOD COUNT 3.83 10^6/uL (4.00-5.40); WHITE BLOOD COUNT 7.3 10^3/uL (4.0-10.0)
[2024-04-12 08:00] VITALS: BP 126/60; TEMP 97.3; O2SAT 95
[2024-04-12 08:11] LABS: BLOOD UREA NITROGEN 12 MG/DL (9-23); CALCIUM LEVEL 8.3 MG/DL (8.3-10.6); CARBON DIOXIDE LEVEL 26 MMOL/L (20-31); CHLORIDE LEVEL 100 MMOL/L (98-107); GLOMERULAR FILTRATION RATE > 60.0 (>39); GLUCOSE, FASTING 111 MG/DL (74-106); MAGNESIUM LEVEL 1.6 MG/DL (1.8-2.4); POTASSIUM SERUM 3.2 MMOL/L (3.5-5.1); SODIUM LEVEL 133 MMOL/L (136-145)
[2024-04-12] MEDS ORDERED: CHLORTHALIDONE 25 MG TAB PO SCH (09:00)
[2024-04-12] MEDS: MAG SULF 1GM/100ML (MAG RUN) 1 GM in IV 1 EA IV SCH (09:42)
[2024-04-12] MEDS: POTASSIUM CHLORIDE 10MEQ SR TABLET PO ONE (09:45)
[2024-04-12 12:00] VITALS: BP 117/58; TEMP 98.3; O2SAT 96
[2024-04-12] MEDS: SUCRALFATE SUSP 1GM/10ML UD PO SCH (12:16)
[2024-04-12 20:06] VITALS: BP 139/65; TEMP 98; O2SAT 95
[2024-04-12] MEDS: NORCO, ANEXSIA 5/325MG TABLET (HYDROcodone/ACETAMINOPHEN) GT PRN (20:33)
[2024-04-13] VITALS: BP 154/63; TEMP 97; O2SAT 95
[2024-04-13 04:00] VITALS: BP 152/62; TEMP 97; O2SAT 95
[2024-04-13 05:04] LABS: BASO % 0.3 % (0.0-1.0); EOS # 0.1 10^3/uL (0.0-0.5); EOS % 1.3 % (0.0-3.0); HEMATOCRIT 34.2 % (36.0-47.0); HEMOGLOBIN 11.4 g/dl (12.0-15.5); LYMPH # 1.1 10^3/uL (1.5-5.0); LYMPH % 18.3 % (24.0-44.0); MEAN CORPUSCULAR HEMOGLOBIN 29.8 pg (27.0-33.0); MEAN CORPUSCULAR HGB CONC 33.3 g/dl (32.0-36.5); MEAN CORPUSCULAR VOLUME 89.3 fl (80.0-96.0); MONO # 0.7 10^3/uL (0.0-0.8); MONO % 11.2 % (2.0-8.0); NEUTROPHILS # 4.1 10^3/uL (1.5-8.5); NEUTROPHILS % 67.1 % (36.0-66.0); PLATELET COUNT, AUTOMATED 334 10^3/uL (150-450); RED BLOOD COUNT 3.83 10^6/uL (4.00-5.40); WHITE BLOOD COUNT 6.2 10^3/uL (4.0-10.0)
[2024-04-13 05:32] LABS: BLOOD UREA NITROGEN 16 MG/DL (9-23); CALCIUM LEVEL 8.5 MG/DL (8.3-10.6); CARBON DIOXIDE LEVEL 26 MMOL/L (20-31); CHLORIDE LEVEL 100 MMOL/L (98-107); CREATININE FOR GFR 0.54 MG/DL (0.55-1.30); GLOMERULAR FILTRATION RATE > 60.0 (>39); GLUCOSE, FASTING 91 MG/DL (74-106); MAGNESIUM LEVEL 1.8 MG/DL (1.8-2.4); POTASSIUM SERUM 3.4 MMOL/L (3.5-5.1); SODIUM LEVEL 132 MMOL/L (136-145)
[2024-04-13 08:00] VITALS: BP 145/68; TEMP 97; O2SAT 96
[2024-04-13] MEDS: POTASSIUM CHLORIDE 10MEQ SR TABLET PO SCH (08:26)
[2024-04-13 12:00] VITALS: BP 149/64; TEMP 96.8; O2SAT 100
[2024-04-13 16:00] VITALS: BP 154/79; TEMP 96.8; O2SAT 98
[2024-04-13 20:00] VITALS: BP 152/56; TEMP 97.2; O2SAT 99
[2024-04-14] VITALS (7 sets, daily range): BP systolic 146–184; BP diastolic 54–69; TEMP 97–97.5; O2SAT 97–99
[2024-04-14 05:59] LABS: BASO % 0.2 % (0.0-1.0); EOS # 0.1 10^3/uL (0.0-0.5); EOS % 1.4 % (0.0-3.0); HEMOGLOBIN 11.8 g/dl (12.0-15.5); LYMPH # 1.4 10^3/uL (1.5-5.0); LYMPH % 23.4 % (24.0-44.0); MEAN CORPUSCULAR HEMOGLOBIN 29.6 pg (27.0-33.0); MEAN CORPUSCULAR HGB CONC 32.8 g/dl (32.0-36.5); MEAN CORPUSCULAR VOLUME 90.2 fl (80.0-96.0); MONO # 0.5 10^3/uL (0.0-0.8); MONO % 9.2 % (2.0-8.0); NEUTROPHILS # 3.8 10^3/uL (1.5-8.5); NEUTROPHILS % 64.4 % (36.0-66.0); PLATELET COUNT, AUTOMATED 329 10^3/uL (150-450); RED BLOOD COUNT 3.99 10^6/uL (4.00-5.40); WHITE BLOOD COUNT 5.9 10^3/uL (4.0-10.0)
[2024-04-14 06:29] LABS: BLOOD UREA NITROGEN 15 MG/DL (9-23); CALCIUM LEVEL 8.8 MG/DL (8.3-10.6); CARBON DIOXIDE LEVEL 25 MMOL/L (20-31); CHLORIDE LEVEL 99 MMOL/L (98-107); GLOMERULAR FILTRATION RATE > 60.0 (>39); GLUCOSE, FASTING 72 MG/DL (74-106); MAGNESIUM LEVEL 1.5 MG/DL (1.8-2.4); POTASSIUM SERUM 3.5 MMOL/L (3.5-5.1); SODIUM LEVEL 132 MMOL/L (136-145)
[2024-04-14] MEDS: FERROUS SULFATE 300MG/5ML UDC LIQUID GT SCH (08:55)
[2024-04-14] MEDS: POTASSIUM CHLORIDE 10MEQ SR TABLET PO SCH (08:58)
[2024-04-14] MEDS: MAG SULF 1GM/100ML (MAG RUN) 1 GM in IV 1 EA IV SCH (10:00)
[2024-04-14] MEDS ORDERED: DIAPER RELIEF PASTE (DESITIN) 60GM TOP PRN (14:40)
[2024-04-14] MEDS ORDERED: ACETAMINOPHEN TAB 650MG DOSE (2X325MG) GT PRN (15:00)
[2024-04-14] MEDS: PANTOPRAZOLE 40MG VIAL IV SCH (16:35)
[2024-04-14] MEDS: CLOPIDOGREL 75 MG TAB PO SCH (16:37)
[2024-04-14] MEDS: SUCRALFATE SUSP 1GM/10ML UD GT SCH (16:37)
[2024-04-14] MEDS: TOPIRAMATE (TopAMAX) 25 MG TAB GT SCH (21:37)
[2024-04-14] MEDS: GABAPENTIN 300 MG CAP GT SCH (21:38)
[2024-04-14] MEDS: ATORVASTATIN 20 MG TAB GT SCH (21:38)
[2024-04-15 00:03] VITALS: BP 132/52; TEMP 97.2; O2SAT 96
[2024-04-15 04:15] VITALS: BP 167/69; TEMP 96.8; O2SAT 97
[2024-04-15 06:03] LABS: BASO % 0.4 % (0.0-1.0); EOS # 0.1 10^3/uL (0.0-0.5); EOS % 2.2 % (0.0-3.0); HEMOGLOBIN 11.3 g/dl (12.0-15.5); LYMPH # 1.1 10^3/uL (1.5-5.0); LYMPH % 25.4 % (24.0-44.0); MEAN CORPUSCULAR HEMOGLOBIN 29.6 pg (27.0-33.0); MEAN CORPUSCULAR HGB CONC 32.3 g/dl (32.0-36.5); MEAN CORPUSCULAR VOLUME 91.6 fl (80.0-96.0); MONO # 0.4 10^3/uL (0.0-0.8); MONO % 9.8 % (2.0-8.0); NEUTROPHILS # 2.7 10^3/uL (1.5-8.5); NEUTROPHILS % 60.9 % (36.0-66.0); PLATELET COUNT, AUTOMATED 318 10^3/uL (150-450); RED BLOOD COUNT 3.82 10^6/uL (4.00-5.40); WHITE BLOOD COUNT 4.5 10^3/uL (4.0-10.0)
[2024-04-15 06:32] LABS: BLOOD UREA NITROGEN 14 MG/DL (9-23); CALCIUM LEVEL 8.3 MG/DL (8.3-10.6); CARBON DIOXIDE LEVEL 23 MMOL/L (20-31); CHLORIDE LEVEL 101 MMOL/L (98-107); CREATININE FOR GFR 0.51 MG/DL (0.55-1.30); GLOMERULAR FILTRATION RATE > 60.0 (>39); GLUCOSE, FASTING 94 MG/DL (74-106); MAGNESIUM LEVEL 1.8 MG/DL (1.8-2.4); SODIUM LEVEL 130 MMOL/L (136-145)
[2024-04-15] MEDS: POTASSIUM CHLORIDE 10% LIQ 20MEQ/15ML UDC PO SCH (09:22)
[2024-04-15] MEDS: ASCORBIC ACID 500 MG TAB GT SCH (09:24)
[2024-04-15] MEDS: OLMESARTAN MEDOXOMIL 20 MG TAB (BENICAR) GT SCH (09:25)
[2024-04-15] MEDS: MAG SULF 1GM/100ML (MAG RUN) 1 GM in IV 1 EA IV SCH (09:25)
[2024-04-15 12:00] VITALS: BP 127/46; TEMP 97.2; O2SAT 98
[2024-04-15 16:00] VITALS: BP 125/58; TEMP 97.6; O2SAT 97
[2024-04-15 19:46] VITALS: BP 168/66; TEMP 97.5; O2SAT 97
[2024-04-16 00:08] VITALS: BP 156/53; TEMP 97.2; O2SAT 97
[2024-04-16 04:00] VITALS: BP 167/74; TEMP 97.5; O2SAT 96
[2024-04-16 07:52] LABS: BASO % 0.8 % (0.0-1.0); EOS # 0.1 10^3/uL (0.0-0.5); EOS % 3.4 % (0.0-3.0); HEMATOCRIT 35.6 % (36.0-47.0); HEMOGLOBIN 11.6 g/dl (12.0-15.5); LYMPH # 1.2 10^3/uL (1.5-5.0); LYMPH % 30.4 % (24.0-44.0); MEAN CORPUSCULAR HEMOGLOBIN 29.6 pg (27.0-33.0); MEAN CORPUSCULAR HGB CONC 32.6 g/dl (32.0-36.5); MEAN CORPUSCULAR VOLUME 90.8 fl (80.0-96.0); MONO # 0.6 10^3/uL (0.0-0.8); MONO % 15.2 % (2.0-8.0); NEUTROPHILS # 1.9 10^3/uL (1.5-8.5); NEUTROPHILS % 48.1 % (36.0-66.0); PLATELET COUNT, AUTOMATED 278 10^3/uL (150-450); RED BLOOD COUNT 3.92 10^6/uL (4.00-5.40); WHITE BLOOD COUNT 3.9 10^3/uL (4.0-10.0)
[2024-04-16 08:02] VITALS: BP 167/64; TEMP 97; O2SAT 97
[2024-04-16 08:19] LABS: BLOOD UREA NITROGEN 17 MG/DL (9-23); CALCIUM LEVEL 8.8 MG/DL (8.3-10.6); CARBON DIOXIDE LEVEL 28 MMOL/L (20-31); CHLORIDE LEVEL 101 MMOL/L (98-107); CREATININE FOR GFR 0.55 MG/DL (0.55-1.30); GLOMERULAR FILTRATION RATE > 60.0 (>39); GLUCOSE, FASTING 79 MG/DL (74-106); MAGNESIUM LEVEL 1.5 MG/DL (1.8-2.4); POTASSIUM SERUM 3.8 MMOL/L (3.5-5.1); SODIUM LEVEL 135 MMOL/L (136-145)
[2024-04-16] MEDS: MAG SULF 1GM/100ML (MAG RUN) 1 GM in IV 1 EA IV SCH (09:20)
[2024-04-16 09:30] VITALS: BP 167/64
[2024-04-16 12:00] VITALS: BP 168/63; TEMP 97.2; O2SAT 97
== END 2024-04-16 12:47 ==
LOC: M PCU 21:08 → INTOOBSV 21:08 → M MSPAV 04-13 00:28
PROVIDERS: ADMIT General Practice; ATTEND Hospitalist
DX: I73.9 Peripheral vascular disease, unspecified (principal); R23.0 Cyanosis; K92.2 Gastrointestinal hemorrhage, unspecified; R11.0 Nausea; I48.0 Paroxysmal atrial fibrillation; D62 Acute posthemorrhagic anemia; E87.8 Other disorders of electrolyte and fluid balance, not elsewhere classified; J44.9 Chronic obstructive pulmonary disease, unspecified; Z99.81 Dependence on supplemental oxygen; I25.10 Atherosclerotic heart disease of native coronary artery without angina pectoris; Z86.73 Personal history of transient ischemic attack (TIA), and cerebral infarction without residual deficits; K21.00 Gastro-esophageal reflux disease with esophagitis, without bleeding; K29.50 Unspecified chronic gastritis without bleeding; R13.14 Dysphagia, pharyngoesophageal phase; Z93.1 Gastrostomy status; R19.7 Diarrhea, unspecified; Z97.8 Presence of other specified devices; Z86.16 Personal history of COVID-19; J69.0 Pneumonitis due to inhalation of food and vomit; R91.8 Other nonspecific abnormal finding of lung field; E87.6 Hypokalemia; E83.42 Hypomagnesemia; E87.1 Hypo-osmolality and hyponatremia; I10 Essential (primary) hypertension; M54.50 Low back pain, unspecified; G89.29 Other chronic pain; K56.7 Ileus, unspecified; Z88.1 Allergy status to other antibiotic agents; Z79.899 Other long term (current) drug therapy; Z79.82 Long term (current) use of aspirin; Z79.02 Long term (current) use of antithrombotics/antiplatelets; Z79.51 Long term (current) use of inhaled steroids

== ENCOUNTER 2024-04-18 10:47 | Inpatient (IN) | payer MEDICARE ==
[~2024-04-18] VITALS: Ht 154.9 cm; Wt 36.5 kg
[~2024-04-18 10:47] MED LIST changes: -ACET650S3 PR; -CHOL1250 PEG; -MELA5TAB58 PEG
[2024-04-18 11:20] LABS: HEMOGLOBIN 9.7 g/dl (12.0-15.5); MEAN CORPUSCULAR HEMOGLOBIN 29.6 pg (27.0-33.0); MEAN CORPUSCULAR HGB CONC 33.4 g/dl (32.0-36.5); MEAN CORPUSCULAR VOLUME 88.4 fl (80.0-96.0); PLATELET COUNT, AUTOMATED 353 10^3/uL (150-450); RED BLOOD COUNT 3.28 10^6/uL (4.00-5.40); WHITE BLOOD COUNT 15.7 10^3/uL (4.0-10.0)
[2024-04-18 11:32] LABS: INR 1.06; PARTIAL THROMBOPLASTIN TIME 28.8 SECONDS (24.8-34.2); PROTHROMBIN TIME 13.5 SECONDS (12.5-14.5)
[2024-04-18 11:40] LABS: ATYPICAL LYMPH 1 % (0-5); LYMPHOCYTES 10 % (16-44); MONOCYTES 5 % (0-5); NEUTROPHILS 81 % (28-66)
[2024-04-18 11:44] LABS: PLATELET CLUMPS SMALL AMT; PLATELET ESTIMATE NORMAL (NORMAL)
[2024-04-18 11:47] LABS: CK-MB VALUE MASS < 1.0 NG/ML (<3.6); ETHYL ALCOHOL (ETHANOL) < 0.003 % (0.000-0.010); LIPASE 37 U/L (12-53)
[2024-04-18 11:49] LABS: ALBUMIN 2.7 G/DL (3.2-5.2); ALKALINE PHOSPHATASE 66 U/L (46-116); ALT/SGPT 10 U/L (7.0-40); AST/SGOT < 8 U/L (<34); BILIRUBIN,DIRECT < 0.1 MG/DL (<0.4); BILIRUBIN,TOTAL 0.2 MG/DL (0.3-1.2); BLOOD UREA NITROGEN 50 MG/DL (9-23); CALCIUM LEVEL 8.5 MG/DL (8.3-10.6); CARBON DIOXIDE LEVEL 24 MMOL/L (20-31); CHLORIDE LEVEL 101 MMOL/L (98-107); CPK CREATINE PHOSPHOKINASE 18 U/L (34-145); CREATININE FOR GFR 0.47 MG/DL (0.55-1.30); GLOMERULAR FILTRATION RATE > 60.0 (>39); GLUCOSE, FASTING 140 MG/DL (74-106); MB/CK RELATIVE INDEX 5.55 (< OR =4); POTASSIUM SERUM 3.6 MMOL/L (3.5-5.1); SODIUM LEVEL 133 MMOL/L (136-145); TOTAL PROTEIN 6.4 G/DL (5.7-8.2)
[2024-04-18 11:51] LABS: ANISOCYTOSIS 1+
[2024-04-18] MEDS: PANTOPRAZOLE 40MG VIAL IV ONE (12:10)
[2024-04-18] MEDS ORDERED: ISOVUE-370 76% 100ML VIAL As Ordered ONE (12:21)
[2024-04-18 13:33] LABS: BASO % 0.2 % (0.0-1.0); EOS % 0.1 % (0.0-3.0); HEMATOCRIT 35.6 % (36.0-47.0); LYMPH # 1.2 10^3/uL (1.5-5.0); LYMPH % 8.1 % (24.0-44.0); MEAN CORPUSCULAR HEMOGLOBIN 30.4 pg (27.0-33.0); MEAN CORPUSCULAR HGB CONC 33.4 g/dl (32.0-36.5); MONO # 1.3 10^3/uL (0.0-0.8); MONO % 8.8 % (2.0-8.0); NEUTROPHILS # 10.9 10^3/uL (1.5-8.5); PLATELET COUNT, AUTOMATED 265 10^3/uL (150-450); RED BLOOD COUNT 3.91 10^6/uL (4.00-5.40); WHITE BLOOD COUNT 14.3 10^3/uL (4.0-10.0)
[2024-04-18 13:39] LABS: HEMOGLOBIN 11.9 g/dl (12.0-15.5)
[2024-04-18] MEDS ORDERED: ACETAMINOPHEN TAB 650MG DOSE (2X325MG) PO PRN (14:05)
[2024-04-18] MEDS: ONDANSETRON 4MG 2ML VIAL IV ONE (14:19)
[2024-04-18] MEDS: FUROSEMIDE 20MG/2ML VIAL IV ONE (14:20)
[2024-04-18 14:38] LABS: PROCALCITONIN 0.17 ng/ml
[2024-04-18] MEDS: PIPERACILLIN/TAZOBACTAM SOD 3.375 GM in D5W MINI-BAG PLUS 50 ML IV SCH (15:03)
[2024-04-18] MEDS ORDERED: CHOL1250 PEG (15:24)
[2024-04-18 15:48] LABS: HEMATOCRIT 38.3 % (36.0-47.0); HEMOGLOBIN 13.3 g/dl (12.0-15.5)
[2024-04-18 16:00] VITALS: BP 172/74; TEMP 97; O2SAT 100
[2024-04-18 16:08] LABS: HEMOGLOBIN A1c 5.3 % (4.0-6.0)
[2024-04-18] MEDS ORDERED: MELA5TAB58 PEG (16:17)
[2024-04-18] MEDS ORDERED: ACET650S3 PR (16:17)
[2024-04-18] MEDS ORDERED: HOME MED LIST COMPLETE! XX SCH (16:20)
[2024-04-18] MEDS ORDERED: ACETAMINOPHEN 650MG SUPP PR PRN (16:55)
[2024-04-18] MEDS ORDERED: BISACODYL 10MG SUPP PR PRN (16:55)
[2024-04-18] MEDS ORDERED: MOM 30ML SUSPENSION UDC PEG PRN (16:55)
[2024-04-18] MEDS ORDERED: PILL CUTTER 1 EACH XX PRN (18:00)
[2024-04-18] MEDS ORDERED: SUCRALFATE SUSP 1GM/10ML UD PO SCH (18:00)
[2024-04-18 18:30] VITALS: BP 125/65
[2024-04-18] MEDS: SUCRALFATE SUSP 1GM/10ML UD PEG SCH (18:30)
[2024-04-18] MEDS: ADVAIR HFA 115/21MCG INHALER INH SCH (20:05)
[2024-04-18 20:09] VITALS: BP 125/69; TEMP 98.2; O2SAT 98
[2024-04-18] MEDS: MAGNESIUM OXIDE 400MG TAB (MAG-OX) PEG SCH (20:45)
[2024-04-18] MEDS: ATORVASTATIN 20 MG TAB PEG SCH (20:46)
[2024-04-18] MEDS: PANTOPRAZOLE 40MG VIAL IV SCH (20:46)
[2024-04-18] MEDS: GABAPENTIN 300 MG CAP PEG SCH (20:46)
[2024-04-18] MEDS: FERROUS SULFATE 300MG/5ML UDC LIQUID PEG SCH (20:56)
[2024-04-18] MEDS: TOPIRAMATE (TopAMAX) 25 MG TAB PEG SCH (20:57)
[2024-04-18] MEDS: NORCO, ANEXSIA 5/325MG TABLET (HYDROcodone/ACETAMINOPHEN) PEG PRN (21:05)
[2024-04-18] MEDS: ONDANSETRON 4MG 2ML VIAL IV PRN (21:46)
[2024-04-18] MEDS ORDERED: GLUCOSE 4 GM CHEW PO PRN (23:25)
[2024-04-18] MEDS ORDERED: DEXTROSE 50% 50ML SYRINGE IV PRN (23:25)
[2024-04-18] MEDS ORDERED: GLUCAGON INJ 1MG VIAL SC PRN (23:25)
[2024-04-18 23:47] VITALS: BP 160/70; TEMP 97.4; O2SAT 96
[2024-04-19 00:41] LABS: HEMOGLOBIN 12.2 g/dl (12.0-15.5)
[2024-04-19] MEDS: SCOPOLAMINE 1MG TRANSDERMAL PATCH TOP ONE (00:43)
[2024-04-19 03:54] VITALS: BP 120/54; TEMP 97; O2SAT 96
[2024-04-19 06:43] LABS: BASO % 0.4 % (0.0-1.0); EOS # 0.1 10^3/uL (0.0-0.5); EOS % 0.6 % (0.0-3.0); HEMATOCRIT 31.2 % (36.0-47.0); HEMOGLOBIN 10.5 g/dl (12.0-15.5); MEAN CORPUSCULAR HEMOGLOBIN 30.4 pg (27.0-33.0); MEAN CORPUSCULAR HGB CONC 33.7 g/dl (32.0-36.5); MEAN CORPUSCULAR VOLUME 90.4 fl (80.0-96.0); MONO % 9.3 % (2.0-8.0); NEUTROPHILS # 7.2 10^3/uL (1.5-8.5); NEUTROPHILS % 68.2 % (36.0-66.0); PLATELET COUNT, AUTOMATED 251 10^3/uL (150-450); RED BLOOD COUNT 3.45 10^6/uL (4.00-5.40); WHITE BLOOD COUNT 10.5 10^3/uL (4.0-10.0)
[2024-04-19 07:17] LABS: BLOOD UREA NITROGEN 36 MG/DL (9-23); CALCIUM LEVEL 8.3 MG/DL (8.3-10.6); CARBON DIOXIDE LEVEL 24 MMOL/L (20-31); CHLORIDE LEVEL 105 MMOL/L (98-107); CREATININE FOR GFR 0.78 MG/DL (0.55-1.30); GLOMERULAR FILTRATION RATE > 60.0 (>39); GLUCOSE, FASTING 103 MG/DL (74-106); MAGNESIUM LEVEL 1.8 MG/DL (1.8-2.4); POTASSIUM SERUM 3.5 MMOL/L (3.5-5.1); SODIUM LEVEL 139 MMOL/L (136-145)
[2024-04-19] MEDS: TIOTROPIUM INHALER/CAPSULE (SPIRIVA) INH SCH (08:04)
[2024-04-19 08:27] VITALS: BP 90/58; TEMP 97.5; O2SAT 97
[2024-04-19] MEDS: OLMESARTAN MEDOXOMIL 20 MG TAB (BENICAR) PEG SCH (10:00)
[2024-04-19] MEDS: ASCORBIC ACID 500 MG TAB PEG SCH (10:01)
[2024-04-19] MEDS: VITAMIN D (CHOLECALCIFEROL) 400 INTERNATIONAL UNITS TAB GT SCH (10:02)
[2024-04-19 12:00] VITALS: BP 100/58; TEMP 97.3; O2SAT 96
[2024-04-19 12:16] LABS: HEMATOCRIT 32.5 % (36.0-47.0); HEMOGLOBIN 10.9 g/dl (12.0-15.5)
[2024-04-19 16:20] VITALS: BP 117/50; TEMP 97.9; O2SAT 96
[2024-04-19 18:27] LABS: HEMATOCRIT 30.8 % (36.0-47.0); HEMOGLOBIN 10.6 g/dl (12.0-15.5)
[2024-04-19] MEDS: NS 1,000 ML IV SCH (21:07)
[2024-04-19] MEDS: RAMELTEON 8 MG TAB (ROZEREM) PEG PRN (21:09)
[2024-04-19 21:40] VITALS: BP 115/50; TEMP 97.7; O2SAT 94
[2024-04-20 00:46] LABS: HEMOGLOBIN 9.5 g/dl (12.0-15.5)
[2024-04-20 04:00] VITALS: BP 105/47; TEMP 97.5; O2SAT 99
[2024-04-20 06:28] LABS: BASO # 0.1 10^3/uL (0.0-0.2); BASO % 0.7 % (0.0-1.0); EOS # 0.2 10^3/uL (0.0-0.5); EOS % 2.3 % (0.0-3.0); HEMATOCRIT 25.8 % (36.0-47.0); HEMOGLOBIN 8.7 g/dl (12.0-15.5); LYMPH % 29.6 % (24.0-44.0); MEAN CORPUSCULAR HEMOGLOBIN 30.7 pg (27.0-33.0); MEAN CORPUSCULAR HGB CONC 33.7 g/dl (32.0-36.5); MEAN CORPUSCULAR VOLUME 91.2 fl (80.0-96.0); MONO # 0.6 10^3/uL (0.0-0.8); MONO % 8.7 % (2.0-8.0); NEUTROPHILS # 3.8 10^3/uL (1.5-8.5); NEUTROPHILS % 56.1 % (36.0-66.0); PLATELET COUNT, AUTOMATED 215 10^3/uL (150-450); RED BLOOD COUNT 2.83 10^6/uL (4.00-5.40); WHITE BLOOD COUNT 6.9 10^3/uL (4.0-10.0)
[2024-04-20 07:26] LABS: BLOOD UREA NITROGEN 25 MG/DL (9-23); CALCIUM LEVEL 8.2 MG/DL (8.3-10.6); CARBON DIOXIDE LEVEL 24 MMOL/L (20-31); CHLORIDE LEVEL 102 MMOL/L (98-107); CREATININE FOR GFR 0.72 MG/DL (0.55-1.30); GLOMERULAR FILTRATION RATE > 60.0 (>39); GLUCOSE, FASTING 74 MG/DL (74-106); MAGNESIUM LEVEL 1.6 MG/DL (1.8-2.4); POTASSIUM SERUM 2.8 MMOL/L (3.5-5.1); SODIUM LEVEL 135 MMOL/L (136-145)
[2024-04-20] MEDS: POTASSIUM CHLORIDE 10% LIQ 20MEQ/15ML UDC GT ONE (10:56)
[2024-04-20 12:00] VITALS: BP 125/43; TEMP 97.7; O2SAT 96
[2024-04-20 12:36] LABS: HEMATOCRIT 34.5 % (36.0-47.0)
[2024-04-20 12:51] LABS: HEMOGLOBIN 11.2 g/dl (12.0-15.5)
[2024-04-20 18:28] LABS: HEMATOCRIT 28.9 % (36.0-47.0); HEMOGLOBIN 9.6 g/dl (12.0-15.5)
[2024-04-20 20:00] VITALS: BP 124/43; TEMP 97.5; O2SAT 96
[2024-04-21 03:49] VITALS: BP 120/45; TEMP 97.3; O2SAT 92
[2024-04-21] MEDS: ACETAMINOPHEN 325 MG TAB PEG PRN (05:59)
[2024-04-21 06:00] LABS: BASO % 0.6 % (0.0-1.0); EOS # 0.1 10^3/uL (0.0-0.5); EOS % 2.5 % (0.0-3.0); HEMATOCRIT 26.3 % (36.0-47.0); HEMOGLOBIN 8.9 g/dl (12.0-15.5); LYMPH # 1.3 10^3/uL (1.5-5.0); LYMPH % 24.5 % (24.0-44.0); MEAN CORPUSCULAR HEMOGLOBIN 30.8 pg (27.0-33.0); MEAN CORPUSCULAR HGB CONC 33.8 g/dl (32.0-36.5); MONO # 0.5 10^3/uL (0.0-0.8); MONO % 8.5 % (2.0-8.0); NEUTROPHILS # 3.3 10^3/uL (1.5-8.5); NEUTROPHILS % 61.4 % (36.0-66.0); PLATELET COUNT, AUTOMATED 193 10^3/uL (150-450); RED BLOOD COUNT 2.89 10^6/uL (4.00-5.40); WHITE BLOOD COUNT 5.3 10^3/uL (4.0-10.0)
[2024-04-21 06:31] LABS: BLOOD UREA NITROGEN 13 MG/DL (9-23); CALCIUM LEVEL 8.1 MG/DL (8.3-10.6); CARBON DIOXIDE LEVEL 24 MMOL/L (20-31); CHLORIDE LEVEL 105 MMOL/L (98-107); CREATININE FOR GFR 0.68 MG/DL (0.55-1.30); GLOMERULAR FILTRATION RATE > 60.0 (>39); GLUCOSE, FASTING 79 MG/DL (74-106); MAGNESIUM LEVEL 1.6 MG/DL (1.8-2.4); SODIUM LEVEL 136 MMOL/L (136-145)
[2024-04-21] MEDS: POTASSIUM CHLORIDE 10% LIQ 20MEQ/15ML UDC GT ONE (09:56)
[2024-04-21] MEDS ORDERED: ALBUTEROL 90 MCG/ACT 8GM HFA INHALER INH PRN (10:40)
[2024-04-21 12:00] VITALS: BP 130/52; TEMP 97.9; O2SAT 91
[2024-04-21] MEDS: METOCLOPRAMIDE INJ 10MG/2ML VIAL IV SCH (12:05)
[2024-04-21 18:44] LABS: HEMATOCRIT 27.8 % (36.0-47.0); HEMOGLOBIN 9.2 g/dl (12.0-15.5)
[2024-04-21] MEDS: PERMETHRIN 5% CREAM 60 GM TOP ONE (19:05)
[2024-04-21 20:23] VITALS: BP 155/53; TEMP 98.1
[2024-04-22] MEDS ORDERED: PERMETHRIN 5% CREAM 60 GM TOP SCH
[2024-04-22 01:08] LABS: HEMATOCRIT 27.6 % (36.0-47.0); HEMOGLOBIN 9.4 g/dl (12.0-15.5)
[2024-04-22 04:00] VITALS: BP 167/61; TEMP 97.9; O2SAT 100
[2024-04-22] MEDS: DIBUCAINE 1% OINTMENT 30GM TOP PRN (05:04)
[2024-04-22 07:18] LABS: BASO % 0.7 % (0.0-1.0); EOS # 0.2 10^3/uL (0.0-0.5); EOS % 3.5 % (0.0-3.0); HEMATOCRIT 29.6 % (36.0-47.0); LYMPH # 1.8 10^3/uL (1.5-5.0); LYMPH % 29.7 % (24.0-44.0); MEAN CORPUSCULAR HEMOGLOBIN 30.9 pg (27.0-33.0); MEAN CORPUSCULAR HGB CONC 33.8 g/dl (32.0-36.5); MEAN CORPUSCULAR VOLUME 91.4 fl (80.0-96.0); MONO # 0.6 10^3/uL (0.0-0.8); MONO % 9.3 % (2.0-8.0); NEUTROPHILS # 3.2 10^3/uL (1.5-8.5); NEUTROPHILS % 54.6 % (36.0-66.0); PLATELET COUNT, AUTOMATED 216 10^3/uL (150-450); RED BLOOD COUNT 3.24 10^6/uL (4.00-5.40); WHITE BLOOD COUNT 5.9 10^3/uL (4.0-10.0)
[2024-04-22 07:34] LABS: C REACTIVE PROTEIN QUANTITATIV < 0.40 MG/DL (<1.0)
[2024-04-22 07:37] LABS: BLOOD UREA NITROGEN 7 MG/DL (9-23); CALCIUM LEVEL 8.6 MG/DL (8.3-10.6); CARBON DIOXIDE LEVEL 24 MMOL/L (20-31); CHLORIDE LEVEL 103 MMOL/L (98-107); CREATININE FOR GFR 0.62 MG/DL (0.55-1.30); GLOMERULAR FILTRATION RATE > 60.0 (>39); GLUCOSE, FASTING 80 MG/DL (74-106); MAGNESIUM LEVEL 1.4 MG/DL (1.8-2.4); POTASSIUM SERUM 3.4 MMOL/L (3.5-5.1); SODIUM LEVEL 135 MMOL/L (136-145)
[2024-04-22] MEDS: MAG SULF 1GM/100ML (MAG RUN) 1 GM in IV 1 EA IV SCH (08:24)
[2024-04-22] MEDS: POTASSIUM CHLORIDE 10% LIQ 20MEQ/15ML UDC GT ONE (08:29)
[2024-04-22] MEDS ORDERED: MAGNESIUM GLUCONATE 500 MG TAB GT SCH (09:00)
[2024-04-22 12:00] VITALS: BP 144/55; TEMP 97.7; O2SAT 91
[2024-04-22 12:08] LABS: HEMATOCRIT 29.1 % (36.0-47.0); HEMOGLOBIN 9.9 g/dl (12.0-15.5)
[2024-04-22 20:31] VITALS: BP 177/80; TEMP 97.9; O2SAT 93
[2024-04-23 04:00] VITALS: BP 165/58; TEMP 97.9; O2SAT 96
[2024-04-23 06:32] LABS: BASO % 0.7 % (0.0-1.0); EOS # 0.2 10^3/uL (0.0-0.5); EOS % 3.9 % (0.0-3.0); HEMATOCRIT 31.9 % (36.0-47.0); HEMOGLOBIN 10.7 g/dl (12.0-15.5); LYMPH # 1.7 10^3/uL (1.5-5.0); LYMPH % 28.4 % (24.0-44.0); MEAN CORPUSCULAR HEMOGLOBIN 30.4 pg (27.0-33.0); MEAN CORPUSCULAR HGB CONC 33.5 g/dl (32.0-36.5); MEAN CORPUSCULAR VOLUME 90.6 fl (80.0-96.0); MONO # 0.5 10^3/uL (0.0-0.8); MONO % 7.6 % (2.0-8.0); NEUTROPHILS # 3.4 10^3/uL (1.5-8.5); NEUTROPHILS % 56.9 % (36.0-66.0); PLATELET COUNT, AUTOMATED 254 10^3/uL (150-450); RED BLOOD COUNT 3.52 10^6/uL (4.00-5.40); WHITE BLOOD COUNT 5.9 10^3/uL (4.0-10.0)
[2024-04-23 06:53] LABS: C REACTIVE PROTEIN QUANTITATIV < 0.40 MG/DL (<1.0)
[2024-04-23 06:55] LABS: BLOOD UREA NITROGEN 5 MG/DL (9-23); CALCIUM LEVEL 8.6 MG/DL (8.3-10.6); CARBON DIOXIDE LEVEL 23 MMOL/L (20-31); CHLORIDE LEVEL 104 MMOL/L (98-107); CREATININE FOR GFR 0.53 MG/DL (0.55-1.30); GLOMERULAR FILTRATION RATE > 60.0 (>39); GLUCOSE, FASTING 79 MG/DL (74-106); MAGNESIUM LEVEL 1.8 MG/DL (1.8-2.4); PHOSPHORUS LEVEL 3.3 MG/DL (2.4-5.1); POTASSIUM SERUM 3.2 MMOL/L (3.5-5.1); SODIUM LEVEL 136 MMOL/L (136-145)
[2024-04-23] MEDS: POTASSIUM CHLORIDE 10% LIQ 20MEQ/15ML UDC GT ONE (09:04)
[2024-04-23 12:00] VITALS: BP 108/54; TEMP 97.9; O2SAT 99
[2024-04-23 20:04] VITALS: BP 145/63; TEMP 97.5; O2SAT 98
[2024-04-24 04:00] VITALS: BP 164/58; TEMP 97.7; O2SAT 98
[2024-04-24 05:46] LABS: BASO % 0.5 % (0.0-1.0); EOS # 0.2 10^3/uL (0.0-0.5); HEMATOCRIT 30.7 % (36.0-47.0); HEMOGLOBIN 10.3 g/dl (12.0-15.5); LYMPH # 1.7 10^3/uL (1.5-5.0); LYMPH % 26.5 % (24.0-44.0); MEAN CORPUSCULAR HEMOGLOBIN 30.6 pg (27.0-33.0); MEAN CORPUSCULAR HGB CONC 33.6 g/dl (32.0-36.5); MEAN CORPUSCULAR VOLUME 91.1 fl (80.0-96.0); MONO # 0.5 10^3/uL (0.0-0.8); MONO % 8.5 % (2.0-8.0); NEUTROPHILS # 3.6 10^3/uL (1.5-8.5); NEUTROPHILS % 56.9 % (36.0-66.0); PLATELET COUNT, AUTOMATED 270 10^3/uL (150-450); RED BLOOD COUNT 3.37 10^6/uL (4.00-5.40); WHITE BLOOD COUNT 6.4 10^3/uL (4.0-10.0)
[2024-04-24 05:58] LABS: C REACTIVE PROTEIN QUANTITATIV < 0.40 MG/DL (<1.0)
[2024-04-24 06:05] LABS: BLOOD UREA NITROGEN 8 MG/DL (9-23); CALCIUM LEVEL 8.8 MG/DL (8.3-10.6); CARBON DIOXIDE LEVEL 27 MMOL/L (20-31); CHLORIDE LEVEL 103 MMOL/L (98-107); CREATININE FOR GFR 0.45 MG/DL (0.55-1.30); GLOMERULAR FILTRATION RATE > 60.0 (>39); GLUCOSE, FASTING 83 MG/DL (74-106); MAGNESIUM LEVEL 1.5 MG/DL (1.8-2.4); PHOSPHORUS LEVEL 2.6 MG/DL (2.4-5.1); POTASSIUM SERUM 3.1 MMOL/L (3.5-5.1); SODIUM LEVEL 136 MMOL/L (136-145)
[2024-04-24] MEDS: POTASSIUM CHLORIDE 10% LIQ 20MEQ/15ML UDC GT ONE (08:51)
[2024-04-24 12:00] VITALS: BP 149/79; TEMP 97.5; O2SAT 96
[2024-04-24] MEDS: LIDOCAINE 5% (LIDODERM) PATCH TD SCH (17:53)
[2024-04-24 20:34] VITALS: BP 151/67; TEMP 97.5; O2SAT 99
[2024-04-25 03:45] VITALS: BP 163/64; TEMP 97.3; O2SAT 98
[2024-04-25] MEDS: POTASSIUM CHLORIDE 10% LIQ 20MEQ/15ML UDC GT SCH (09:08)
[2024-04-25 12:00] VITALS: BP 151/62; TEMP 98; O2SAT 99
[2024-04-26 03:04] VITALS: BP 152/58; TEMP 98.2; O2SAT 98
[2024-04-26 05:59] LABS: HEMATOCRIT 30.5 % (36.0-47.0); HEMOGLOBIN 9.9 g/dl (12.0-15.5); MEAN CORPUSCULAR HEMOGLOBIN 30.4 pg (27.0-33.0); MEAN CORPUSCULAR HGB CONC 32.5 g/dl (32.0-36.5); MEAN CORPUSCULAR VOLUME 93.6 fl (80.0-96.0); PLATELET COUNT, AUTOMATED 277 10^3/uL (150-450); RED BLOOD COUNT 3.26 10^6/uL (4.00-5.40); WHITE BLOOD COUNT 5.7 10^3/uL (4.0-10.0)
[2024-04-26 06:26] LABS: BLOOD UREA NITROGEN 15 MG/DL (9-23); CALCIUM LEVEL 8.6 MG/DL (8.3-10.6); CARBON DIOXIDE LEVEL 25 MMOL/L (20-31); CHLORIDE LEVEL 102 MMOL/L (98-107); CREATININE FOR GFR 0.51 MG/DL (0.55-1.30); GLOMERULAR FILTRATION RATE > 60.0 (>39); GLUCOSE, FASTING 87 MG/DL (74-106); POTASSIUM SERUM 3.4 MMOL/L (3.5-5.1); SODIUM LEVEL 134 MMOL/L (136-145)
[2024-04-26 10:40] VITALS: BP 152/58
[2024-04-26 10:45] VITALS: BP 152/58
[2024-04-26 12:00] VITALS: BP 128/62; TEMP 97.7; O2SAT 98
== END 2024-04-26 13:30 | DRG 377 ==
LOC: EDBD 10:47 → M ED 10:47 → M ED INP 14:04 → M PCU 16:02 → M MSPAV 04-19 16:16
PROVIDERS: ADMIT Internal Medicine; ATTEND Family Medicine
PROC: 30233N1 Transfusion of Nonautologous Red Blood Cells into Peripheral Vein, Percutaneous Approach (ICD-10-PCS; principal; 2024-04-18)
PROC: B246ZZZ Ultrasonography of Right and Left Heart (ICD-10-PCS; 2024-04-19)
DX: K92.2 Gastrointestinal hemorrhage, unspecified (principal); J69.0 Pneumonitis due to inhalation of food and vomit; E43 Unspecified severe protein-calorie malnutrition; J96.11 Chronic respiratory failure with hypoxia; E87.1 Hypo-osmolality and hyponatremia; I73.9 Peripheral vascular disease, unspecified; I48.0 Paroxysmal atrial fibrillation; J44.9 Chronic obstructive pulmonary disease, unspecified; I25.10 Atherosclerotic heart disease of native coronary artery without angina pectoris; I16.0 Hypertensive urgency; I27.20 Pulmonary hypertension, unspecified; K31.84 Gastroparesis; K29.50 Unspecified chronic gastritis without bleeding; E87.6 Hypokalemia; G62.9 Polyneuropathy, unspecified; D64.9 Anemia, unspecified; R13.14 Dysphagia, pharyngoesophageal phase; I10 Essential (primary) hypertension; I77.1 Stricture of artery; K20.90 Esophagitis, unspecified without bleeding; Z79.51 Long term (current) use of inhaled steroids; Z79.02 Long term (current) use of antithrombotics/antiplatelets; Z79.82 Long term (current) use of aspirin; Z79.899 Other long term (current) drug therapy; Z88.1 Allergy status to other antibiotic agents; Z86.73 Personal history of transient ischemic attack (TIA), and cerebral infarction without residual deficits; Z99.81 Dependence on supplemental oxygen; Z66 Do not resuscitate; H54.7 Unspecified visual loss; Z86.16 Personal history of COVID-19; Z87.891 Personal history of nicotine dependence; Z20.7 Contact with and (suspected) exposure to pediculosis, acariasis and other infestations

== ENCOUNTER → 2024-04-18 | Outpatient (REF) ==
[~2024-04-18] MED LIST changes: +ACET1TAB55 PEG; +ACET650S3 PR; +BISA10SU4 PR; +CHLO125TA PEG; +CHOL1250 PEG; +CLOP75TA2 PEG; +DRIS50003 PEG; +FERR325T3 PEG; +GABA-282 PEG; +HYDR-3713 PEG; +JUVEPOW3 PO; +LOPE-39 PEG; +MAALSUS19 PEG; +MELA5TAB21 PO; +MELA5TAB58 PEG; +MILKSUS3 PEG; +OLME20TA50 PEG; +PANT40TA29 PEG; +POTA10CA70 PEG; +TOPI25TA10 PEG; +VITA500C24 PEG
[2024-04-18 00:36] LABS: HEMATOCRIT 33.4 % (36.0-47.0); MEAN CORPUSCULAR HEMOGLOBIN 29.3 pg (27.0-33.0); MEAN CORPUSCULAR HGB CONC 32.9 g/dl (32.0-36.5); MEAN CORPUSCULAR VOLUME 88.8 fl (80.0-96.0); PLATELET COUNT, AUTOMATED 353 10^3/uL (150-450); RED BLOOD COUNT 3.76 10^6/uL (4.00-5.40); WHITE BLOOD COUNT 13.1 10^3/uL (4.0-10.0)
[2024-04-18 01:01] LABS: ALBUMIN 2.9 G/DL (3.2-5.2); ALKALINE PHOSPHATASE 72 U/L (46-116); ALT/SGPT 10 U/L (7.0-40); AST/SGOT 8 U/L (<34); BILIRUBIN,TOTAL 0.2 MG/DL (0.3-1.2); BLOOD UREA NITROGEN 47 MG/DL (9-23); CALCIUM LEVEL 9.1 MG/DL (8.3-10.6); CARBON DIOXIDE LEVEL 25 MMOL/L (20-31); CHLORIDE LEVEL 100 MMOL/L (98-107); CREATININE FOR GFR 0.52 MG/DL (0.55-1.30); GLOMERULAR FILTRATION RATE > 60.0 (>39); GLUCOSE, FASTING 125 MG/DL (74-106); POTASSIUM SERUM 3.2 MMOL/L (3.5-5.1); SODIUM LEVEL 134 MMOL/L (136-145); TOTAL PROTEIN 6.7 G/DL (5.7-8.2)
== END ==
LOC: SKLAB4 04-17 18:45
PROVIDERS: ATTEND Internal Medicine
DX: K92.2 Gastrointestinal hemorrhage, unspecified (principal)

== ENCOUNTER 2024-04-28 09:35 | Emergency (ER) | payer MEDICARE ==
[~2024-04-28 09:35] MED LIST changes: +ACET650S3 PR; +CHOL1250 PEG; +MELA5TAB58 PEG
[2024-04-28 10:15] VITALS: TEMP 98.8
[2024-04-28 10:36] LABS: HEMATOCRIT 34.1 % (36.0-47.0); HEMOGLOBIN 11.4 g/dl (12.0-15.5); MEAN CORPUSCULAR HEMOGLOBIN 31.2 pg (27.0-33.0); MEAN CORPUSCULAR HGB CONC 33.4 g/dl (32.0-36.5); MEAN CORPUSCULAR VOLUME 93.4 fl (80.0-96.0); PLATELET COUNT, AUTOMATED 355 10^3/uL (150-450); RED BLOOD COUNT 3.65 10^6/uL (4.00-5.40); WHITE BLOOD COUNT 10.5 10^3/uL (4.0-10.0)
[2024-04-28 11:09] LABS: BLOOD UREA NITROGEN 29 MG/DL (9-23); CALCIUM LEVEL 9.4 MG/DL (8.3-10.6); CARBON DIOXIDE LEVEL 28 MMOL/L (20-31); CHLORIDE LEVEL 98 MMOL/L (98-107); CREATININE FOR GFR 0.48 MG/DL (0.55-1.30); GLOMERULAR FILTRATION RATE > 60.0 (>39); GLUCOSE, FASTING 96 MG/DL (74-106); MAGNESIUM LEVEL 1.5 MG/DL (1.8-2.4); SODIUM LEVEL 133 MMOL/L (136-145)
[2024-04-28 11:59] VITALS: BP 154/67; O2SAT 100
== END 2024-04-28 12:18 | disposition home or self-care (01) ==
LOC: M ED 09:35 → EDBD 09:35 → M ED 12:18
DX: K92.2 Gastrointestinal hemorrhage, unspecified (principal); I48.91 Unspecified atrial fibrillation; I10 Essential (primary) hypertension; J44.9 Chronic obstructive pulmonary disease, unspecified; Z88.1 Allergy status to other antibiotic agents; Z79.1 Long term (current) use of non-steroidal anti-inflammatories (NSAID); Z79.899 Other long term (current) drug therapy

== ENCOUNTER → 2024-04-29 | Outpatient (REF) | payer MEDICARE ==
[2024-04-29 10:10] LABS: BASO % 0.5 % (0.0-1.0); EOS # 0.2 10^3/uL (0.0-0.5); EOS % 1.8 % (0.0-3.0); HEMATOCRIT 32.9 % (36.0-47.0); HEMOGLOBIN 10.8 g/dl (12.0-15.5); LYMPH # 1.2 10^3/uL (1.5-5.0); LYMPH % 14.6 % (24.0-44.0); MEAN CORPUSCULAR HEMOGLOBIN 30.9 pg (27.0-33.0); MEAN CORPUSCULAR HGB CONC 32.8 g/dl (32.0-36.5); MONO % 12.4 % (2.0-8.0); NEUTROPHILS # 5.7 10^3/uL (1.5-8.5); NEUTROPHILS % 68.5 % (36.0-66.0); PLATELET COUNT, AUTOMATED 338 10^3/uL (150-450); WHITE BLOOD COUNT 8.3 10^3/uL (4.0-10.0)
[2024-04-29 11:19] LABS: ALBUMIN 3.4 G/DL (3.2-5.2); ALKALINE PHOSPHATASE 76 U/L (46-116); ALT/SGPT 13 U/L (7.0-40); AST/SGOT 13 U/L (<34); BILIRUBIN,TOTAL 0.3 MG/DL (0.3-1.2); BLOOD UREA NITROGEN 26 MG/DL (9-23); CALCIUM LEVEL 9.8 MG/DL (8.3-10.6); CARBON DIOXIDE LEVEL 30 MMOL/L (20-31); CHLORIDE LEVEL 96 MMOL/L (98-107); CREATININE FOR GFR 0.57 MG/DL (0.55-1.30); GLOMERULAR FILTRATION RATE > 60.0 (>39); GLUCOSE, FASTING 98 MG/DL (74-106); POTASSIUM SERUM 2.9 MMOL/L (3.5-5.1); SODIUM LEVEL 135 MMOL/L (136-145); TOTAL PROTEIN 6.8 G/DL (5.7-8.2)
== END ==
LOC: SKLAB4 08:13
PROVIDERS: ATTEND Internal Medicine
DX: D64.9 Anemia, unspecified (principal)

== ENCOUNTER → 2024-04-30 | Outpatient (REF) | payer MEDICARE | LOC: SKLAB4 08:46 | PROVIDERS: ATTEND Internal Medicine | DX: E87.6 Hypokalemia (principal) ==